=== PATIENT | male | born 1935 | race Caucasian/White ===

== ENCOUNTER 2017-03-12 17:48 | Inpatient (IN) | payer OTHER, MEDICARE ==
--- NOTE | 2017-03-12 19:40 | PDOC H&P ---
History of Present Illness Admission Date/PCP: 03/12/17 17:48 History of Present Illness: This is a 82-year-old white male with a past medical history significant for CKD stage IV, COPD, hypertension, dyslipidemia A. fib and CHF with last known EF of 24% who presented to an outside hospital with one-week history of shortness of breath. The patient states that his symptoms began about a week ago and he noticed increased fluid in his lower extremities and increased abdominal girth. His shortness of breath became progressively worse to the extent that he could not handle it anymore and he presented to [facility]. patient also describes inability to lay flat as well as development of chest discomfort in the last 24 hours. He describes a left-sided chest pain that is sharp and nonradiating. He rates it at a 5 out of 10. He received nitroglycerin at the outside hospital which improved his discomfort. He reports feeling very tired and having had minimal sleep over the last day or 2. At the outside hospital the patient received nitroglycerin for his chest discomfort. He received 80 mg of Lasix IV and nitro drip to reduce an elevated blood pressure. He received a chest x-ray which showed no focal consolidations , pneumothorax or pleural effusion. AICD was noted cardiac silhouette was deemed to be prominent. There was also noted to be an indistinct pulmonary vasculature and reticular markings in the lung bases which are associated with fluid overload. Findings were consistent with congestive heart failure. BNP done was 18,000 and creatinine was 4.3. The patient reports that his baseline creatinine is usually between 3.5 and 4. INR was noted to be elevated at 3.69. EKG showed a paced rhythm at 60 bpm. The patient was transferred here for further consideration for dialysis. The patient has been told in the past that he was approaching the need for dialysis by his physicians in [facility]. The patient usually gets his care from [facility] and is in the process of transferring down here to be closer to his daughter. He has a nephrology follow -up scheduled at the [facility] for the beginning of March. He reports increased difficulty in initiating his urine stream but denies any decreased urinary output. In fact the patient usually takes Lasix 80 mg in the morning and an extra dose if he feels that he is gaining weight. He reports that he does not add sodium to his food and that he drinks about 1500 cc of fluid each day. Currently at the bedside the patient is wearing oxygen he has no complaints of continued chest discomfort at this time. Current outpatient medications: furosemide 40 mg twice a day Hydralazine 50 mg every 8 hours Carvedilol 25 mg twice a day Warfarin 2 mg 2 tabs daily and 1 tab on Saturday Digoxin 125 mcg 1 tab Saturday no lab sodium bicarb 650 mg 1 tab 3 times daily before meals Pravastatin 40 mg nightly Amiodarone 200 mg 2 tabs daily LANTANOPROST 1 drop each eye daily Flomax 0.4 mg nightly isosorbide mononitrate 20 mg 3 times daily Past Medical History Cardiac Medical History: Reports: Atrial Fibrillation, Congestive Heart Failure , Coronary Artery Disease, Myocardial Infarction - [place] at the age of 47. It did not result in any stents., Hyperlipidema, Hypertension, Peripheral Vascular Disease - aortic aneurysm status post repair, Heart Murmur Pulmonary Medical History: Reports: Chronic Obstructive Pulmonary Disease (COPD) , Sleep Apnea - The patient brought his CPAP with him. Pulmonary History Note: The patient reports RLS. EENT Medical History: Reports: Ears - The patient wears bilateral hearing aids Endocrine Medical History: Reports: Hypothyroidism Renal/ Medical History: Reports: End Stage Renal Disease Past Surgical History Past Surgical History: Reports: Appendectomy, Internal Defibrillator - 2014., Tonsillectomy, Vascular Surgery - AAA repair Social History Information Source: Patient Occupation: Retired Lives with: Alone Smoking Status: Former Smoker - The patient started at 15 and quit at 30 Number of Years Smokin Last Time Smoked: 1968 Frequency of Alcohol Use: None Hx Recreational Drug Use: No Drugs: None Hx Prescription Drug Abuse: No Family History Family History: CAD, DM Parental Family History Reviewed: Yes Children Family History Reviewed: Yes Sibling(s) Family History Reviewed.: Yes Medication/Allergy Home Medications: Amiodarone HCl [Cordarone 200 mg Tablet] 2 tab PO DAILY 03/12/17 Carvedilol [Coreg 25 mg Tablet] 1 tab PO Q12 03/12/17 Digoxin [Lanoxin] 125 mcg PO MOWEFR@1000 03/12/17 Furosemide [Lasix] 40 mg PO Q12 03/12/17 Hydralazine HCl [Apresoline 50 mg Tablet] 50 mg PO Q8 03/12/17 Isosorbide Mononitrate [Ismo 20 Mg Tablet] 20 mg PO Q8 03/12/17 Latanoprost [Xalatan 0.005% Oph Soln 2.5 ml] 1 drop OU DAILY 03/12/17 Pravastatin Sodium [Pravachol] 40 mg PO QHS 03/12/17 Sodium Bicarbonate [Sodium Bicarbonate 650 mg Tablet] 650 mg PO AC 03/12/17 Tamsulosin HCl [Flomax 0.4 mg Cap.sr] 0.4 mg PO QHS 03/12/17 Warfarin Sodium [Coumadin 2 mg Tablet] 2 mg PO MO@1000 03/12/17 Warfarin Sodium [Coumadin 2 mg Tablet] 4 mg PO DAILY 03/12/17 Allergies/Adverse Reactions: No Known Allergies Allergy (Unverified 03/12/17 19:29) Review of Systems Review of Systems: Review of systems is pertinent as thatAlready listed in the HPI. In addition to this the patient reports blood-streaked stools when he wipes. Occasional chills. Recent diagnosis of pneumonia status post a 7 day course of antibiotics. Cough that has been prolonged after the pneumonia. Constipation. He denies blood in the urine, throwing up blood, coughing up blood. He denies fevers, nausea, vomiting, sore throat, joint aches and pains. The patient is hard of hearing and wears bilateral hearing aids. He reports difficulty ambulating because of his restless leg syndrome. He would like to consider moving on towards assisted living. Physical Exam Vital Signs: Vital signs: Temperature is 97.5. Blood pressure 162/69. Heart rate 59. Respiratory rate 20. O2 sat 99% on 3 L by nasal cannula. GENERAL: This is a well-developed well-nourished appearing white male resting in bed currently in no acute distress. He is quite a pleasant gentleman. HEENT: Normocephalic, atraumatic. Sclerae are anicteric. Conjunctivae is pink. Trachea is midline. HEART: Regular rate and rhythm. 2/6 systolic ejection murmur. No, rubs or gallops. LUNGS: Clear to auscultation bilaterally with the exception of crackles heard at the bases bilaterally with equal rise and fall of the chest. ABDOMEN: Soft, nontender, nondistended with normoactive bowel sounds EXTREMETIES: No clubbing, cyanosis. 2+ pitting edema. 1+ peripheral pulses bilaterally. Strength is 5 out of 5 in both upper extremities. 4 out of 5 in the right lower extremity and 5 out of 5 in the left lower extremity. NEURO: Awake, alert and oriented 3. Cranial nerves II through XII are specifically intact with the exception of reduced function in hearing. Results Laboratory Results: Outside labs reveal the following: Sodium 132 creatinine 4.31 potassium 4.6 chloride 109 bicarb of 23 BUN is 76 blood sugars 85 GFR 12.1 troponin is negative white blood cell count is 8.1 H&H is 8.3 and 25 with a platelet count of 208 EKG Comments: Latest EKG shows a paced rhythm at 60 Assessment & Plan - Diagnosis (1) Acute respiratory failure with hypoxemia Plan: Secondary to underlying heart failure. And COPD. Continue oxygen. Wean as needed. As needed albuterol Atrovent nebulizers. (2) Acute on chronic systolic heart failure Plan: The patient is acutely in heart failure. continue with Lasix 60 mg IV twice daily. Monitor renal function. The patient has had an acute decompensation. It is unclear if the heart failure came first or if his renal failure came first. He was followed by cardiology at the outside hospital. We will consult them here. Continue digoxin and carvedilol. The patient was receiving 12.5 mg of carvedilol at the outside hospital continue statin as well as isosorbide. (3) Acute kidney injury superimposed on chronic kidney disease Plan: Patient has been receiving diuresis. We will continue with this and monitor kidney function. We will also consult nephrology. Obtain a CBC and Chem-7 in the morning. (4) Atrial fibrillation Plan: Hold warfarin for this evening last INR was elevated at 3.6. Recheck PT and INR in the morning. (5) Hypertension Qualifiers: Hypertension type: essential hypertension Qualified Code(s): I10 - Essential (primary) hypertension Plan: Continue carvedilol, Isosorbide mononitrate (6) COPD (chronic obstructive pulmonary disease) Plan: The patient is not in acute exacerbation. I do not see that he is on any outpatient inhalers. He is stable at the moment. (7) RLS (restless legs syndrome) Plan: The patient is not currently on any medications to control RLS. We will monitor. - Time Time Spent: Greater than 70 Minutes - Inpatient Certification I certify that my determination is in accordance with my understanding of Medicare's requirements for reasonable and necessary INPATIENT services [42 CFR 412.3e].: Yes Medical Necessity: Need Close Monitoring Due to Risk of Patient Decompensation
[2017-03-12] MEDS ORDERED: IPRATROPIUM/ALBUTEROL 0.5-2.5 MG/3 ML AMPUL NEB PRN (19:44)
--- NOTE | 2017-03-12 21:54 | PDOC CONSULTATION ---
Consultation Consult Date: 03/12/17 Attending physician:: RUPERTO MARQUEZ Consult reason:: I was asked by Dr. Wong to see the patient because of worsening kidney function and possible need for hemodialysis. History of Present Illness Admission Date/PCP: 03/12/17 17:48 History of Present Illness: This is a 82-year-old white male with a past medical history significant for CKD stage IV, COPD, hypertension, dyslipidemia A. fib and CHF with last known EF of 24% who presented to an outside hospital with one-week history of shortness of breath. The patient states that his symptoms began about a week ago and he noticed increased fluid in his lower extremities and increased abdominal girth. His shortness of breath became progressively worse to the extent that he could not handle it anymore and he presented to [facility]. patient also describes inability to lay flat as well as development of chest discomfort in the last 24 hours. He describes a left-sided chest pain that is sharp and nonradiating. He rates it at a 5 out of 10. He received nitroglycerin at the outside hospital which improved his discomfort. He reports feeling very tired and having had minimal sleep over the last day or 2. At the outside hospital the patient received nitroglycerin for his chest discomfort. He received 80 mg of Lasix IV and nitro drip to reduce an elevated blood pressure. He received a chest x-ray which showed no focal consolidations , pneumothorax or pleural effusion. AICD was noted cardiac silhouette was deemed to be prominent. There was also noted to be an indistinct pulmonary vasculature and reticular markings in the lung bases which are associated with fluid overload. Findings were consistent with congestive heart failure. BNP done was 18,000 and creatinine was 4.3. The patient reports that his baseline creatinine is usually between 3.5 and 4. INR was noted to be elevated at 3.69. EKG showed a paced rhythm at 60 bpm. The patient was transferred here for further consideration for dialysis. The patient has been told in the past that he was approaching the need for dialysis by his physicians in [facility]. The patient usually gets his care from [facility] and is in the process of transferring down here to be closer to his daughter. He has a nephrology follow -up scheduled at the [facility] for the beginning of March. He reports increased difficulty in initiating his urine stream but denies any decreased urinary output. In fact the patient usually takes Lasix 80 mg in the morning and an extra dose if he feels that he is gaining weight. He reports that he does not add sodium to his food and that he drinks about 1500 cc of fluid each day. Currently at the bedside the patient is wearing oxygen he has no complaints of continued chest discomfort at this time. Patient said that his breathing is better. His lower extremity swelling has also improved since hospitalized last week. The only complaint he has is his feeling tired because he is unable to sleep because of his restless legs. He denies any chest pains. Currently he denies any problem with urination. Denies any known hematuria. Asked him how much urine he can make them 24 hours he said about two thirds of the urinal. Further review of his records revealed that his baseline creatinine is anywhere between 3.5 until 4 prior to hospitalization last week. On admission at [facility] on March 06 he has a BUN of 76 creatinine 4.31 with estimated GFR of 12.1. Upon initiation of diuresis patient's kidney function very slowly deteriorated but remained at that level of stage V. Today his most recent kidney function shows a BUN of 83 and a creatinine of 5.7 with estimated GFR of 8.63. His potassium has been within normal limits. He has mild hyperphosphatemia in the range of 4.8-5.2. He also has significant anemia with most recent hemoglobin of 8.3 today. His iron panel showed a transferrin saturation of 19, ferritin of 106 and iron of 46. Patient tells me that he has had multiple hospitalizations for congestive heart failure at [place] prior to his move here in [place] last December 25. Patient is very much aware and agreeable of the possibility of initiation of hemodialysis that is why he agreed for this transfer. Current outpatient medications: furosemide 40 mg twice a day Hydralazine 50 mg every 8 hours Carvedilol 25 mg twice a day Warfarin 2 mg 2 tabs daily and 1 tab on Saturday Digoxin 125 mcg 1 tab Saturday no lab sodium bicarb 650 mg 1 tab 3 times daily before meals Pravastatin 40 mg nightly Amiodarone 200 mg 2 tabs daily LANTANOPROST 1 drop each eye daily Flomax 0.4 mg nightly isosorbide mononitrate 20 mg 3 times daily Past Medical History Cardiac Medical History: Reports: Abdominal Aortic Aneurysm - Status post repair in 2014, Atrial Fibrillation, CHF-Systolic - Most recent ejection fraction of 24% in August 2016, Coronary Artery Disease, Heart Murmur, Hyperlipidemia, Hypertension-primary, Myocardial Infarction - [place] at the age of 47. It did not result in any stents., Peripheral Vascular Disease - aortic aneurysm status post repair, Other - Nonischemic cardiomyopathy with biventricular pacemaker and defibrillator placement in September 2016 Pulmonary Medical History: Reports: Chronic Obstructive Pulmonary Disease (COPD) , Sleep Apnea - The patient brought his CPAP with him. EENT Medical History: Reports: Cataracts, Ears - The patient wears bilateral hearing aids, Other - Glaucoma Endocrine Medical History: Reports: Hypothyroidism Renal/ Medical History: Reports: End Stage Renal Disease, Hyperphosphatemia Hematology Medical History: Reports Anemia of Chronic Kidney Disease Past Surgical History Past Surgical History: Reports: Appendectomy, Internal Defibrillator - 2014., Tonsillectomy, Vascular Surgery - AAA repair in 2014 Social History Information Source: Patient Lives with: Alone Smoking Status: Former Smoker - The patient started at 15 and quit at 30 Number of Years Smokin Last Time Smoked: 1968 Frequency of Alcohol Use: None Hx Recreational Drug Use: No Drugs: None Hx Prescription Drug Abuse: No Family History Family History: CAD - Mother, DM - Uncle Parental Family History Reviewed: Yes Children Family History Reviewed: Yes Sibling(s) Family History Reviewed.: Yes Medication/Allergy Home Medications: Amiodarone HCl [Cordarone 200 mg Tablet] 2 tab PO DAILY 03/12/17 Carvedilol [Coreg 25 mg Tablet] 1 tab PO Q12 03/12/17 Digoxin [Lanoxin] 125 mcg PO MOWEFR@1000 03/12/17 Furosemide [Lasix] 40 mg PO Q12 03/12/17 Hydralazine HCl [Apresoline 50 mg Tablet] 50 mg PO Q8 03/12/17 Isosorbide Mononitrate [Ismo 20 Mg Tablet] 20 mg PO Q8 03/12/17 Latanoprost [Xalatan 0.005% Oph Soln 2.5 ml] 1 drop OU DAILY 03/12/17 Pravastatin Sodium [Pravachol] 40 mg PO QHS 03/12/17 Sodium Bicarbonate [Sodium Bicarbonate 650 mg Tablet] 650 mg PO AC 03/12/17 Tamsulosin HCl [Flomax 0.4 mg Cap.sr] 0.4 mg PO QHS 03/12/17 Warfarin Sodium [Coumadin 2 mg Tablet] 2 mg PO MO@1000 03/12/17 Warfarin Sodium [Coumadin 2 mg Tablet] 4 mg PO DAILY 03/12/17 Allergies/Adverse Reactions: No Known Allergies Allergy (Unverified 03/12/17 19:29) Review of Systems All systems: reviewed and no additional remarkable complaints except as stated Review of Systems: Constitutional: ABSENT: chills, fever(s), headache(s), weight gain, weight loss , admits fatigue Eyes: ABSENT: visual disturbances Ears: ABSENT: hearing changes Cardiovascular: ABSENT: chest pain, orthropnea, palpitations; shortness of breath and edema Respiratory: ABSENT: cough, dyspnea, hemoptysis Gastrointestinal: ABSENT: abdominal pain, constipation, diarrhea, hematemesis, hematochezia, nausea, vomiting Genitourinary: ABSENT: dysuria, hematuria Musculoskeletal: ABSENT: joint swelling Integumentary: ABSENT: rash, wounds Neurological: ABSENT: abnormal gait, abnormal speech, confusion, dizziness, focal weakness, numbness, syncope; admits restless leg Psychiatric: ABSENT: anxiety, depression Endocrine: ABSENT: cold intolerance, heat intolerance, polydipsia, polyuria Hematologic/Lymphatic: ABSENT: easy bleeding, easy bruising, lymphadenopathy Physical Exam Vital Signs: Temp Pulse Resp BP Pulse Ox 97.6 F 59 L 24 H 162/67 H 100 03/12/17 19:37 03/12/17 19:37 03/12/17 19:37 03/12/17 19:37 03/12/17 19:37 Intake & Output 03/11/17 03/12/17 03/13/17 06:59 06:59 06:59 Weight 93.3 kg Exam: General appearance: no acute distress, cooperative, well-developed, well- nourished Head exam: PRESENT: atraumatic, normocephalic Eye exam: PRESENT: Conjunctiva pale, EOMI, PERRLA. ABSENT: conjunctival injection, scleral icterus Mouth exam: PRESENT: moist, neck supple, tongue midline Neck exam: PRESENT: full ROM. ABSENT: carotid bruit, JVD, lymphadenopathy, thyromegaly Respiratory exam: PRESENT: clear to auscultation bilaterally. ABSENT: rales, rhonchi, stridor, wheezes Cardiovascular exam: PRESENT: RRR, +S1, +S2. Grade 2/6 systolic murmur Pulses: PRESENT: normal radial pulses, normal dorsalis pedis pulses GI/Abdominal exam: PRESENT: normal bowel sounds, soft. ABSENT: guarding, mass, tenderness Rectal exam: deferred Extremities exam: PRESENT: full ROM. Bilateral trace pitting edema ABSENT: calf tenderness Musculoskeletal: PRESENT: full ROM. ABSENT: deformity Neurological exam: PRESENT: alert, Awake, Oriented to person, Oriented to place , Oriented to time, reflexes normal, CN II-XII grossly intact. ABSENT: motor sensory deficit Psychiatric exam: PRESENT: appropriate affect, normal mood. ABSENT: homicidal ideation, suicidal ideation Skin exam: PRESENT: intact, dry, warm. Positive pallor ABSENT: rash Results Laboratory [facility]. Assessment & Plan - Diagnosis (1) End stage renal disease on dialysis Is this a current diagnosis for this admission?: YesPlan: This is due to chronic cardiorenal syndrome. Patient's records, history and labs consistent with progressive deterioration of kidney function now with end- stage renal disease requiring hemodialysis treatment. At the at this stage the patient would benefit from initiation of chronic hemodialysis treatment to maintain volume and solute control. This will help hopefully prevent frequent exacerbations of congestive heart failure if we can control his volume through hemodialysis consistently. I had an extensive discussion with the patient today regarding hemodialysis treatment versus peritoneal dialysis treatment. Due to his living condition and his age I think it is appropriate for him to do in-center hemodialysis treatment. Explained to patient how the procedure is done and the need for vascular access in the form of a catheter initially and later on AV fistula. Discussed the benefits as is stated above. Also discussed the risk for hemodialysis treatment including bleeding, infection, hemodynamic instability including . After several questions patient agreed to proceed. We will plan to initiate hemodialysis tomorrow. We will consult vascular surgery care of Dr. Gardiner to place either a trialysis of [facility] tomorrow for initiation of hemodialysis. We will do labs required for him to be arranged for an outpatient chronic dialysis treatment. We will also consult technical planner to arrange outpatient dialysis. For this technical planner a discussion with the daughter and the patient should be done as to where the patient is going to be after discharge. If the patient stays here in [place] then we can arrange outpatient dialysis at [facility] and I can follow- up the patient. However if the patient stays at the [facility], patient may need to be arranged to another outpatient dialysis unit in that area and we would need to find a air brakes inspector to follow him up over there. We will have the technical planner follow this up. (2) Cardiorenal syndrome with renal failure Is this a current diagnosis for this admission?: Yes (3) Anemia in chronic kidney disease (CKD) Is this a current diagnosis for this admission?: YesPlan: We will give Epogen and IV Venofer during dialysis treatment. (4) Iron deficiency anemia Is this a current diagnosis for this admission?: Yes (5) Hyperphosphatemia Is this a current diagnosis for this admission?: YesPlan: Low phosphorus diet, phosphorus level and evaluate for need for phosphorus binders. Check PTH level. (6) Non-ischemic cardiomyopathy Is this a current diagnosis for this admission?: Yes (7) Acute on chronic systolic heart failure Is this a current diagnosis for this admission?: Yes (8) RLS (restless legs syndrome) Is this a current diagnosis for this admission?: Yes - Notes Notes: Thank you very much for this consultation. Plan discussed with the nurse taking care of the patient tonight. I will follow the patient with you. - Time Time Spent: Greater than 70 Minutes
[2017-03-12] MEDS ORDERED: TUBERCULIN,PURIF.PROT.DERIV. 5 TU/0.1 ML TEST 1 ML VIAL ID ONE (23:00)
[2017-03-12] MEDS: LATANOPROST 0.005% OPH SOLN 2.5 ML OU SCH (23:43)
--- NOTE | 2017-03-12 23:51 | EKG REPORT ---
SEVERITY:- ABNORMAL ECG - ATRIAL-VENTRICULAR DUAL-PACED RHYTHM : Confirmed by: Deangelo Dupree 12-Mar-2017 23:51:03
[2017-03-12] MEDS: FUROSEMIDE INJ/PF 20 MG/2 ML SDV IV SCH (23:53)
[2017-03-12] MEDS: ISOSORBIDE MONONITRATE 20 MG TABLET PO SCH (23:53)
[2017-03-12] MEDS: CARVEDILOL 12.5 MG TABLET PO SCH (23:54)
[2017-03-12] MEDS: TAMSULOSIN HCL 0.4 MG CAP.SR.24H PO SCH (23:54)
[2017-03-12] MEDS: HYDRALAZINE HCL 50 MG TABLET PO SCH (23:54)
[2017-03-13 04:39] LABS: APPEARANCE,URINE CLEAR; BILIRUBIN,URINE NEGATIVE (NEGATIVE); GLUCOSE, URINE NEGATIVE (NEGATIVE); KETONES,URINE NEGATIVE (NEGATIVE); LEUKOCYTE ESTERASE,URINE NEGATIVE (NEGATIVE); NITRITE,URINE NEGATIVE (NEGATIVE); PROTEIN,URINE NEGATIVE (NEGATIVE); URINE SPECIFIC GRAVITY 1.004; UROBILINOGEN,URINE NEGATIVE mg/dL (<2.0)
[2017-03-13 04:57] LABS: URINE CREATININE 19.7 mg/dL (22-328)
[2017-03-13] MEDS ORDERED: EPOETIN ALFA INJ 20000 UNIT/1 ML VIAL (RENAL) IV PRN (05:00)
[2017-03-13] MEDS ORDERED: IRON SUCROSE COMPLEX INJ/PF 100 MG/5 ML SDV IV PRN (05:00)
[2017-03-13] MEDS ORDERED: NORMAL SALINE 1000 ML 1,000 ML IV PRN (05:00)
[2017-03-13 05:44] LABS: HEMATOCRIT 26.6 % (37.9-51.0); HEMOGLOBIN 8.8 g/dL (13.5-17.0); HGB HCT DIFFERENCE -0.2; MEAN CORPUSCULAR HEMOGLOBIN 30.7 pg (27.0-33.4); MEAN CORPUSCULAR HGB CONC 33.2 g/dL (32.0-36.0); MEAN CORPUSCULAR VOLUME 93 fl (80-97); RED BLOOD COUNT 2.88 10^6/uL (4.35-5.55); RED CELL DISTRIBUTION WIDTH 17.2 % (11.5-14.0); WHITE BLOOD COUNT 8.5 10^3/uL (4.0-10.5)
[2017-03-13 05:49] LABS: PROTHROMBIN TIME 24.1 SEC (11.4-15.4)
[2017-03-13 05:50] LABS: PARTIAL THROMBOPLASTIN TIME 50.9 SEC (23.5-35.8)
[2017-03-13 06:16] LABS: ALANINE AMINOTRANSFERASE 40 U/L (21-72); ALBUMIN 3.6 g/dL (3.5-5.0); ALKALINE PHOSPHATASE 93 U/L (38-126); ANION GAP 11 (5-19); ASPARTATE AMINO TRANSFERASE 29 U/L (17-59); BILIRUBIN,DIRECT 0.9 mg/dL (0.0-0.4); BILIRUBIN,TOTAL 1.1 mg/dL (0.2-1.3); BLOOD UREA NITROGEN 94 mg/dL (7-20); CARBON DIOXIDE 30 mmol/L (22-30); CHLORIDE 98 mmol/L (98-107); CHOLESTEROL 145.85 mg/dL (0-200); CREATININE RESULT 5.63 mg/dL (0.52-1.25); Direct HDL 36 mg/dL (>40); GLUCOSE 91 mg/dL (75-110); MAGNESIUM 2.7 mg/dL (1.6-2.3); PHOSPHORUS 6.3 mg/dL (2.5-4.5); POTASSIUM 3.9 mmol/L (3.6-5.0); SODIUM 139.4 mmol/L (137-145); TOTAL PROTEIN 6.7 g/dL (6.3-8.2); TRIGLYCERIDES 60 mg/dL (<150)
[2017-03-13 06:27] LABS: DIRECT LDL 93 mg/dL (<100)
[2017-03-13] MEDS: ISOSORBIDE MONONITRATE 20 MG TABLET PO SCH ×3 (06:34→21:15)
[2017-03-13] MEDS: HYDRALAZINE HCL 50 MG TABLET PO SCH ×3 (06:34→21:15)
--- NOTE | 2017-03-13 09:09 | RADIOLOGY REPORT (SQ) ---
EXAM DESCRIPTION: CHEST PA/LAT COMPLETED DATE/TIME: 03/13/2017 8:26 am REASON FOR STUDY: Congestive heart failure COMPARISON: None. EXAM PARAMETERS: NUMBER OF VIEWS: two views TECHNIQUE: Digital Frontal and Lateral radiographic views of the chest acquired. RADIATION DOSE: NA LIMITATIONS: none FINDINGS: LUNGS AND PLEURA: No opacities, masses or pneumothorax. No pleural effusion. MEDIASTINUM AND HILAR STRUCTURES: No masses or contour abnormalities. HEART AND VASCULAR STRUCTURES: Cardiac silhouette is enlarged. BONES: No acute findings. HARDWARE: AICD device is identified in position. OTHER: No other significant finding. IMPRESSION: Cardiomegaly. No acute consolidations are identified. TECHNICAL DOCUMENTATION: JOB ID: [id number] [email or web address]- All Rights Reserved
[2017-03-13] MEDS: SODIUM BICARBONATE 650 MG TABLET PO SCH ×3 (09:42→18:18)
[2017-03-13] MEDS: AMIODARONE HCL 200 MG TABLET PO SCH (09:42)
[2017-03-13] MEDS: CARVEDILOL 12.5 MG TABLET PO SCH ×2 (09:42→21:15)
[2017-03-13] MEDS: DIGOXIN 0.125 MG TABLET PO SCH (09:42)
[2017-03-13] MEDS: FUROSEMIDE INJ/PF 20 MG/2 ML SDV IV SCH ×2 (10:02→21:14)
--- NOTE | 2017-03-13 11:03 | PDOC CONSULTATION ---
Consultation Consult Date: 03/13/17 Attending physician:: KAREN COOPER Consult reason:: Congestive heart failure, cardiomyopathy History of Present Illness Admission Date/PCP: 03/12/17 17:48 Patient complains of: Shortness of breath History of Present Illness: This is a 82-year-old white male with a past medical history significant for CKD stage IV, COPD, hypertension, dyslipidemia A. fib and CHF with last known EF of 24%, which patient claims was obtained just 1 week ago at the [facility], who presented to an outside hospital with one-week history of shortness of breath. The patient states that his symptoms began about a week ago and he noticed increased fluid in his lower extremities and increased abdominal girth. His shortness of breath became progressively worse to the extent that he could not handle it anymore and he presented to [facility]. patient also describes inability to lay flat as well as development of chest discomfort in the last 24 hours. He describes a left-sided chest pain that is sharp and nonradiating. He rates it at a 5 out of 10. He received nitroglycerin at the outside hospital which improved his discomfort. He reports feeling very tired and having had minimal sleep over the last day or 2. At the outside hospital the patient received nitroglycerin for his chest discomfort. He received 80 mg of Lasix IV and nitro drip to reduce an elevated blood pressure. He received a chest x-ray which showed no focal consolidations , pneumothorax or pleural effusion. AICD was noted. Cardiac silhouette was deemed to be prominent. There was also noted to be an indistinct pulmonary vasculature and reticular markings in the lung bases which are associated with fluid overload. Findings were consistent with congestive heart failure. BNP done was 18,000 and creatinine was 4.3. The patient reports that his baseline creatinine is usually between 3.5 and 4. INR was noted to be elevated at 3.69. EKG showed a paced rhythm at 60 bpm. The patient was transferred here for further consideration for dialysis. The patient has been told in the past that he was approaching the need for dialysis by his physicians in [facility]. The patient usually gets his care from [facility] and is in the process of transferring down here to be closer to his daughter. He has a nephrology follow -up scheduled at the [facility] for the beginning of March. He reports increased difficulty in initiating his urine stream but denies any decreased urinary output. In fact the patient usually takes Lasix 80 mg in the morning and an extra dose if he feels that he is gaining weight. He reports that he does not add sodium to his food and that he drinks about 1500 cc of fluid each day. Patient describes history of abdominal aortic aneurysm surgery. He is not aware if he ever had heart catheterization but the patient denied any definite prior history of myocardial infarction. Patient is denying any chest pain at this time. He is laying comfortably in bed. Patient surrogate decision-maker is patient's daughter. This history was reviewed, supplemented and confirmed. Current outpatient medications were reviewed. furosemide 40 mg twice a day Hydralazine 50 mg every 8 hours Carvedilol 25 mg twice a day Warfarin 2 mg 2 tabs daily and 1 tab on Saturday Digoxin 125 mcg 1 tab Saturday no lab sodium bicarb 650 mg 1 tab 3 times daily before meals Pravastatin 40 mg nightly Amiodarone 200 mg 2 tabs daily LANTANOPROST 1 drop each eye daily Flomax 0.4 mg nightly isosorbide mononitrate 20 mg 3 times daily Past Medical History Cardiac Medical History: Reports: Atrial Fibrillation, Congestive Heart Failure , Coronary Artery Disease, Myocardial Infarction - Questionable history OK at the age of 47. It did not result in any stents., Hyperlipidema, Hypertension, Peripheral Vascular Disease - aortic aneurysm status post repair, Heart Murmur, Other - Nonischemic cardiomyopathy with biventricular pacemaker and defibrillator placement in September 2016 Pulmonary Medical History: Reports: Chronic Obstructive Pulmonary Disease (COPD) , Sleep Apnea - The patient brought his CPAP with him. EENT Medical History: Reports: Cataracts, Ears - The patient wears bilateral hearing aids, Other - Glaucoma Endocrine Medical History: Reports: Hypothyroidism Renal/ Medical History: Reports: End Stage Renal Disease Hematology: Reports: Other - Glaucoma Past Surgical History Past Surgical History: Reports: Appendectomy, Internal Defibrillator - 2014., Tonsillectomy, Vascular Surgery - AAA repair in 2014 Social History Information Source: Patient Lives with: Alone Smoking Status: Former Smoker - The patient started at 15 and quit at 30 Number of Years Smokin Last Time Smoked: 1968 Frequency of Alcohol Use: None Hx Recreational Drug Use: No Drugs: None Hx Prescription Drug Abuse: No - Advance Directive Resuscitation Status: Full Code Surrogate healthcare decision maker:: Patient's daughter Family History Family History: CAD, DM Parental Family History Reviewed: Yes Children Family History Reviewed: Yes Sibling(s) Family History Reviewed.: Yes Medication/Allergy Home Medications: Amiodarone HCl [Cordarone 200 mg Tablet] 2 tab PO DAILY 03/12/17 Carvedilol [Coreg 25 mg Tablet] 1 tab PO Q12 03/12/17 Digoxin [Lanoxin] 125 mcg PO MOWEFR@1000 03/12/17 Furosemide [Lasix] 40 mg PO Q12 03/12/17 Hydralazine HCl [Apresoline 50 mg Tablet] 50 mg PO Q8 03/12/17 Isosorbide Mononitrate [Ismo 20 Mg Tablet] 20 mg PO Q8 03/12/17 Latanoprost [Xalatan 0.005% Oph Soln 2.5 ml] 1 drop OU DAILY 03/12/17 Pravastatin Sodium [Pravachol] 40 mg PO QHS 03/12/17 Sodium Bicarbonate [Sodium Bicarbonate 650 mg Tablet] 650 mg PO AC 03/12/17 Tamsulosin HCl [Flomax 0.4 mg Cap.sr] 0.4 mg PO QHS 03/12/17 Warfarin Sodium [Coumadin 2 mg Tablet] 2 mg PO MO@1000 03/12/17 Warfarin Sodium [Coumadin 2 mg Tablet] 4 mg PO DAILY 03/12/17 Allergies/Adverse Reactions: No Known Allergies Allergy (Unverified 03/12/17 19:29) Review of Systems Review of Systems: Please see history of present illness and past medical history as wall. Constitutional: No fever or chills reported. Head : No recent chronic headaches, recent head injury. Eyes: No recent eye pain, diplopia, redness, discharge, acute visual changes. Ears: No recent chronic ear pain, acute hearing loss, ear discharge. Oral cavity: No recent ulcerations, bleeding, oral cavity discomfort. Neck: No recent acute neck pain reported. Hematologic: No recent easy bruising or bleeding or hematologic malignancy reported. Lymphatic: No recent lymphatic malignancy, chronic lymphadenopathy reported yet Cardiovascular system review: See history of present illness. Increasing shortness of breath and pedal edema. No recent defibrillator shocks Respiratory system review: No recent chronic cough, hemoptysis, blood clots in the lungs reported. Shortness of breath on exertion Gastrointestinal system review: Negative for any recent acute or chronic abdominal pain, hematemesis, melena, recent change in bowel habits. Genitourinary system review: No recent acute or chronic hematuria, flank pain, UTI etc. reported. Skin system review: Negative for any recent abnormal bruising, no rash, no pruritus reported. Neurologic: No prior history of strokes, mini strokes, seizure disorder. Psychologic: No history of major psychosis or major depression reported. Musculoskeletal: Minor aches and pains reported. No acute joint swelling reported. Endocrine: No recent polyuria, polydipsia, recent heat or cold intolerance. Physical Exam Vital Signs: Temp Pulse Resp BP Pulse Ox 97.9 F 64 16 143/61 H 100 03/13/17 07:58 03/13/17 10:37 03/13/17 10:37 03/13/17 07:58 03/13/17 07:58 Intake & Output 03/12/17 03/13/17 03/14/17 06:59 06:59 06:59 Intake Total 233 Output Total 2400 Balance -2167 Weight 89 kg Exam: GENERAL: well-nourished and in no acute distress. Alert and oriented x3 HEAD: Atraumatic, normocephalic. EYES: Pupils equal round and reactive to light, extraocular movements intact, sclera anicteric, conjunctiva are normal. ENT: TMs normal, nares patent, oropharynx clear without exudates. Moist mucous membranes. No oral ulcerations or bleeding gums noted NECK: supple without lymphadenopathy. Trachea is central. No cervical or axillary lymphadenopathy noted. Carotids are 2+, JVD WNL LUNGS: Respiration seems nonlabored, no significant accessory muscle action noted. Breath sounds clear to auscultation bilaterally and equal noted. No wheezes rales or rhonchi noted. No significant dullness noted on percussion. CHEST: Palpation of the chest wall shows no significant chest wall tenderness. No other significant abnormalities noted. Defibrillator noted on the left side. HEART: [place] [employer], No PSH, 1/6 LIOR aortic area, 1/6 rea systolic murmur mitral area, no rubs, no gallops. ABDOMEN: Soft, no significant tenderness appreciated, normoactive bowel sounds. No guarding, no rebound. No rigidity noted . No masses appreciated. EXTREMITIES: Pedal pulses are 1-2+, no calf tenderness noted. No clubbing or cyanosis. 1-2+ pedal edema noted NEUROLOGICAL: Focused neurological exam showed no significant neurologic deficit. Normal speech, no focal weakness appreciated. PSYCH: Normal mood, normal affect. Judgment and insight within normal limits. SKIN: No significant ecchymosis, rash, ulcerations or signs of pruritus noted. MUSCULOSKELETAL EXAM: No significant joint swelling noted. Results Laboratory Results: 03/13/17 05:30 03/13/17 05:30 03/13/17 03/13/17 03/13/17 04:07 05:30 05:30 WBC 8.5 RBC 2.88 L Hgb 8.8 L Hct 26.6 L MCV 93 MCH 30.7 MCHC 33.2 RDW 17.2 H Plt Count 199 Sodium 139.4 Potassium 3.9 Chloride 98 Carbon Dioxide 30 Anion Gap 11 BUN 94 H Creatinine 5.63 H Est GFR ( Amer) 12 L Est GFR (Non-Af Amer) 10 L Glucose 91 Calcium 9.0 Phosphorus 6.3 H Magnesium 2.7 H Total Bilirubin 1.1 AST 29 ALT 40 Alkaline Phosphatase 93 Total Protein 6.7 Albumin 3.6 Triglycerides 60 Cholesterol 145.85 LDL Cholesterol Direct 93 VLDL Cholesterol 12.0 HDL Cholesterol 36 L TSH Urine Color STRAW Urine Appearance CLEAR Urine pH 7.0 Ur Specific [place] 1.004 Urine Protein NEGATIVE Urine Glucose (UA) NEGATIVE Urine Ketones NEGATIVE Urine Blood NEGATIVE Urine Nitrite NEGATIVE Ur Leukocyte Esterase NEGATIVE Urine WBC (Auto) 0 Urine RBC (Auto) 0 03/13/17 05:30 WBC RBC Hgb Hct MCV MCH MCHC RDW Plt Count Sodium Potassium Chloride Carbon Dioxide Anion Gap BUN Creatinine Est GFR ( Amer) Est GFR (Non-Af Amer) Glucose Calcium Phosphorus Magnesium Total Bilirubin AST ALT Alkaline Phosphatase Total Protein Albumin Triglycerides Cholesterol LDL Cholesterol Direct VLDL Cholesterol HDL Cholesterol TSH 4.15 Urine Color Urine Appearance Urine pH Ur Specific [place] Urine Protein Urine Glucose (UA) Urine Ketones Urine Blood Urine Nitrite Ur Leukocyte Esterase Urine WBC (Auto) Urine RBC (Auto) 03/13/17 05:30 NT-Pro-B Natriuret Pep 29077 H EKG Comments: A sensed V paced rhythm noted. Patient had biventricular pacing. Impressions: Chest X-Ray 03/13/17 08:00 IMPRESSION: Cardiomegaly. No acute consolidations are identified. Assessment & Plan - Diagnosis (1) Acute on chronic systolic heart failure Is this a current diagnosis for this admission?: Yes (2) Cardiac defibrillator in situ Is this a current diagnosis for this admission?: Yes (3) Chronic kidney disease Qualifiers: Chronic kidney disease stage: stage 5, not on chronic dialysis Qualified Code(s): N18.5 - Chronic kidney disease, stage 5 Is this a current diagnosis for this admission?: Yes (4) Hypertension Qualifiers: Hypertension type: essential hypertension Qualified Code(s): I10 - Essential (primary) hypertension Is this a current diagnosis for this admission?: Yes (5) Non-ischemic cardiomyopathy Is this a current diagnosis for this admission?: Yes - Notes Notes: Acute on chronic systolic heart failure: Patient has severely depressed LVEF. Patient does have a functioning defibrillator, biventricular in situ. Will try to optimize medical management. Patient will definitely benefit from fluid removal on dialysis and initiation of dialysis therapy. Cardiac defibrillator in situ: Seems functioning normally. Patient chest x-ray showed additional LV lead in coronary sinus addition to right atrial and left right ventricular lead. Chronic kidney disease: Stage V or even worse. Nephrology is seen. Plans are to initiate dialysis. Cardiomyopathy: Believed to be non-ischemic. We will try to obtain previous records. Hypertension: Reasonably well controlled. Blood pressure goal in this patient is 135/85 or less. This was discussed with the patient. Currently blood pressure under reasonable control. Better medication for this patient are DAVID inhibitor/ARB/beta bharati etc. discussed side effects of uncontrolled hypertension and also severe hypotension. - Time Time Spent: 30 to 50 Minutes - CODE STATUS was discussed, patient remains full code. Surrogate decision-maker patient's daughter. Multiple medical problems were addressed. More than 50% of the time spent coordinating care, discussing management plans with involved caregivers. Management plans discussed with involved personnels. Medical decision making was of moderate to high complexity , patient's has multiple comorbidities. Medications reviewed and adjusted accordingly: Yes
[2017-03-13] MEDS ORDERED: LIDOCAINE 0.5% INJ-PF (5 MG/ML) 50 ML SDV ONE (12:02)
--- NOTE | 2017-03-13 13:31 | PDOC PROGRESS REPORT ---
Subjective Progress Note for:: 03/13/17 Subjective:: This is a follow-up visit for end-stage renal disease and acute on chronic systolic heart failure. The patient states he did not sleep well last night. He only slept for 4 hours. He states that he feels less short of breath today and he denies any recurrent chest discomfort. He states that he has been urinating quite a bit and feels as though his legs and feet have decreased swelling. He is due to have dialysis catheter put in today. Physical Exam Vital Signs: Temp Pulse Resp BP Pulse Ox 97.9 F 64 16 143/61 H 100 03/13/17 07:58 03/13/17 10:37 03/13/17 10:37 03/13/17 07:58 03/13/17 07:58 Intake & Output 03/12/17 03/13/17 03/14/17 06:59 06:59 06:59 Intake Total 233 Output Total 2400 Balance -2167 Weight 89 kg GENERAL: This is a well-developed well-nourished appearing white male resting in bed currently in no acute distress. He is quite a pleasant gentleman. HEART: Regular rate and rhythm. 2/6 systolic ejection murmur. No, rubs or gallops. LUNGS: Clear to auscultation bilaterally with equal rise and fall of the chest. ABDOMEN: Soft, nontender, nondistended with normoactive bowel sounds EXTREMETIES: No clubbing, cyanosis. 2+ pitting edema. NEURO: Awake, alert and oriented 3. Cranial nerves II through XII. Results Laboratory Results: 03/13/17 05:30 03/13/17 05:30 03/13/17 03/13/17 03/13/17 04:07 05:30 05:30 WBC 8.5 RBC 2.88 L Hgb 8.8 L Hct 26.6 L MCV 93 MCH 30.7 MCHC 33.2 RDW 17.2 H Plt Count 199 Sodium 139.4 Potassium 3.9 Chloride 98 Carbon Dioxide 30 Anion Gap 11 BUN 94 H Creatinine 5.63 H Est GFR ( Amer) 12 L Est GFR (Non-Af Amer) 10 L Glucose 91 Calcium 9.0 Phosphorus 6.3 H Magnesium 2.7 H Total Bilirubin 1.1 AST 29 ALT 40 Alkaline Phosphatase 93 Total Protein 6.7 Albumin 3.6 Triglycerides 60 Cholesterol 145.85 LDL Cholesterol Direct 93 VLDL Cholesterol 12.0 HDL Cholesterol 36 L TSH Urine Color STRAW Urine Appearance CLEAR Urine pH 7.0 Ur Specific [place] 1.004 Urine Protein NEGATIVE Urine Glucose (UA) NEGATIVE Urine Ketones NEGATIVE Urine Blood NEGATIVE Urine Nitrite NEGATIVE Ur Leukocyte Esterase NEGATIVE Urine WBC (Auto) 0 Urine RBC (Auto) 0 03/13/17 05:30 WBC RBC Hgb Hct MCV MCH MCHC RDW Plt Count Sodium Potassium Chloride Carbon Dioxide Anion Gap BUN Creatinine Est GFR ( Amer) Est GFR (Non-Af Amer) Glucose Calcium Phosphorus Magnesium Total Bilirubin AST ALT Alkaline Phosphatase Total Protein Albumin Triglycerides Cholesterol LDL Cholesterol Direct VLDL Cholesterol HDL Cholesterol TSH 4.15 Urine Color Urine Appearance Urine pH Ur Specific [place] Urine Protein Urine Glucose (UA) Urine Ketones Urine Blood Urine Nitrite Ur Leukocyte Esterase Urine WBC (Auto) Urine RBC (Auto) 03/13/17 05:30 NT-Pro-B Natriuret Pep [id number] H Impressions: Chest X-Ray 03/13/17 08:00 IMPRESSION: Cardiomegaly. No acute consolidations are identified. Assessment & Plan - Diagnosis (1) Acute respiratory failure with hypoxemia Plan: Secondary to underlying heart failure. And COPD. Continue oxygen. Wean as needed. As needed albuterol Atrovent nebulizers. (2) Acute on chronic systolic heart failure Is this a current diagnosis for this admission?: YesPlan: The patient is acutely in heart failure. continue with Lasix 60 mg IV twice daily. Monitor renal function. The patient has had an acute decompensation. It is unclear if the heart failure came first or if his renal failure came first. He was seen by cardiology. Continue digoxin and carvedilol. (3) Acute kidney injury superimposed on chronic kidney disease Plan: Patient has been receiving diuresis. We will continue with this and monitor kidney function. He has been seen by nephrology. The plan is for him to have dialysis catheter placed today and receive hemodialysis later this afternoon. However I have concerns about placement of a PermCath considering that his INR is slightly above 2. We will need to contact the surgeon to make sure they are aware of this. (4) Atrial fibrillation Plan: Resume warfarin after procedure. Recheck PT and INR in the morning. (5) Hypertension Qualifiers: Hypertension type: essential hypertension Qualified Code(s): I10 - Essential (primary) hypertension Is this a current diagnosis for this admission?: YesPlan: Continue carvedilol, Isosorbide mononitrate (6) COPD (chronic obstructive pulmonary disease) Plan: The patient is not in acute exacerbation. I do not see that he is on any outpatient inhalers. He is stable at the moment. (7) RLS (restless legs syndrome) Is this a current diagnosis for this admission?: YesPlan: The patient is not currently on any medications to control RLS. We will monitor. - Time Time Spent with patient: 15-24 minutes - Inpatient Certification Medical Necessity: Need Close Monitoring Due to Risk of Patient Decompensation
--- NOTE | 2017-03-13 15:55 | Operative Report ---
Operative Report DATE OF SURGERY: 03/13/17 PREOPERATIVE DIAGNOSIS: ESRD POSTOPERATIVE DIAGNOSIS: ESRD OPERATION: 1. Ultrasound evaluation of the right femoral vein. 2. Insertion of temporary hemodialysis catheter via real-time access in the right femoral vein. SURGEON: ROSIBEL LANDEROS OUTSIDE EVENT SALES SPECIALIST: None ANESTHESIA: Local TISSUE REMOVED OR ALTERED: Not applicable. COMPLICATIONS: None ESTIMATED BLOOD LOSS: 5 mL. INTRAOPERATIVE FINDINGS: Satisfactory and safe axis in the right femoral vein, and this patient was an elevated INR. Easy egress of blood and ingress of heparinized solution through all 3 ports. PROCEDURE: After obtaining informed consent, the patient was positioned supine at bedside. The left groin and adjacent areas] were prepared with chlorhexidine and draped out with sterile linen. After the universal timeout the procedure commenced. A steriley sheathed ultrasound probe was used to evaluate the right femoral vein. Local anesthesia was infiltrated adjacent to the probe. Access into the right femoral was accomplished using a micropuncture needle followed, by micropuncture wire and then with a micropuncture catheter. This was followed by introduction of a 0.035 guidewire, the skin opening was enlarged slightly, serially larger dilators were now placed followed by introduction of a triaysis catheter. All of these transitions were smooth. Each lumen was aspirated of blood and irrigated with heparinized solution. The catheter was now sutured to the skin using 3-0 nylon. A Bio A patch was now applied, followed by sterile dressings. Caps were placed on the end of the each of the lumens. The procedure concluded. Copies dictated operative report to Dr. Rosibel Gardiner MD.
[2017-03-13] MEDS ORDERED: HEPARIN SOD (PORCINE) 1,000 UNIT/ML 10 ML VIAL IV PRN (17:15)
[2017-03-13] MEDS: FOLIC ACID/VITAMIN B COMP W-C CAPSULE PO SCH (18:18)
--- NOTE | 2017-03-13 18:58 | PDOC PROGRESS REPORT ---
Subjective Progress Note for:: 03/13/17 Subjective:: I saw the patient during dialysis this afternoon. Patient was really looking pretty good and has no complaints. He does admit that he does feel good. The problem he has is he cannot sleep. Denies any shortness of breathing. He is tolerating dialysis without any problems. He underwent right inguinal trialysis catheter placement by Dr. Gardiner this morning. A PermCath will be placed once his PT and INR are acceptable. Milder going to continue to monitor the patient during dialysis treatment. Physical Exam Vital Signs: Temp Pulse Resp BP Pulse Ox 97.8 F 60 21 H 147/58 H 100 03/13/17 11:16 03/13/17 11:16 03/13/17 11:16 03/13/17 11:16 03/13/17 11:16 Intake & Output 03/12/17 03/13/17 03/14/17 06:59 06:59 06:59 Intake Total 233 Output Total 2400 1110 Balance -2167 -1110 Weight 89 kg Vital signs during dialysis treatment: blood pressure 129/62, heart rate of 59, blood flow rate of 250 mL/min, dialysate flow rate of 500 mL/min. Exam: General appearance: PRESENT: no acute distress, cooperative, well-developed, well-nourished Head exam: PRESENT: atraumatic, normocephalic Eye exam: PRESENT: conjunctiva pale, PERRLA. ABSENT: scleral icterus Neck exam: ABSENT: JVD Respiratory exam: PRESENT: Diminished breath sounds. ABSENT: crackles, rales, rhonchi, unlabored, wheezes Cardiovascular exam: PRESENT: Regular rate rhythm -+S1, +S2. Grade 2/6 systolic ejection murmur ABSENT: diastolic murmur GI/Abdominal exam: PRESENT: normal bowel sounds, soft. ABSENT: guarding, mass, tenderness Extremities exam: Trace bilateral lower extremity edema Neurological exam: PRESENT: alert, awake, oriented to person, place and time. Skin exam: PRESENT: dry, warm, positive mild pallor Results Laboratory Results: 03/13/17 05:30 03/13/17 05:30 03/13/17 03/13/17 03/13/17 04:07 05:30 05:30 WBC 8.5 RBC 2.88 L Hgb 8.8 L Hct 26.6 L MCV 93 MCH 30.7 MCHC 33.2 RDW 17.2 H Plt Count 199 Sodium 139.4 Potassium 3.9 Chloride 98 Carbon Dioxide 30 Anion Gap 11 BUN 94 H Creatinine 5.63 H Est GFR ( Amer) 12 L Est GFR (Non-Af Amer) 10 L Glucose 91 Calcium 9.0 Phosphorus 6.3 H Magnesium 2.7 H Total Bilirubin 1.1 AST 29 ALT 40 Alkaline Phosphatase 93 Total Protein 6.7 Albumin 3.6 Triglycerides 60 Cholesterol 145.85 LDL Cholesterol Direct 93 VLDL Cholesterol 12.0 HDL Cholesterol 36 L TSH Urine Color STRAW Urine Appearance CLEAR Urine pH 7.0 Ur Specific [place] 1.004 Urine Protein NEGATIVE Urine Glucose (UA) NEGATIVE Urine Ketones NEGATIVE Urine Blood NEGATIVE Urine Nitrite NEGATIVE Ur Leukocyte Esterase NEGATIVE Urine WBC (Auto) 0 Urine RBC (Auto) 0 03/13/17 05:30 WBC RBC Hgb Hct MCV MCH MCHC RDW Plt Count Sodium Potassium Chloride Carbon Dioxide Anion Gap BUN Creatinine Est GFR ( Amer) Est GFR (Non-Af Amer) Glucose Calcium Phosphorus Magnesium Total Bilirubin AST ALT Alkaline Phosphatase Total Protein Albumin Triglycerides Cholesterol LDL Cholesterol Direct VLDL Cholesterol HDL Cholesterol TSH 4.15 Urine Color Urine Appearance Urine pH Ur Specific [place] Urine Protein Urine Glucose (UA) Urine Ketones Urine Blood Urine Nitrite Ur Leukocyte Esterase Urine WBC (Auto) Urine RBC (Auto) 03/13/17 05:30 NT-Pro-B Natriuret Pep 14512 H Impressions: Chest X-Ray 03/13/17 08:00 IMPRESSION: Cardiomegaly. No acute consolidations are identified. Assessment & Plan - Diagnosis (1) End stage renal disease on dialysis Is this a current diagnosis for this admission?: YesPlan: This is due to chronic cardiorenal syndrome. Patient's records, history and labs consistent with progressive deterioration of kidney function now with end- stage renal disease requiring hemodialysis treatment. At the at this stage the patient would benefit from initiation of chronic hemodialysis treatment to maintain volume and solute control. This will help hopefully prevent frequent exacerbations of congestive heart failure if we can control his volume through hemodialysis consistently. I had an extensive discussion with the patient regarding hemodialysis treatment versus peritoneal dialysis treatment. Due to his living condition and his age I think it is appropriate for him to do in-center hemodialysis treatment. Explained to patient how the procedure is done and the need for vascular access in the form of a catheter initially and later on AV fistula. Discussed the benefits as is stated above. Also discussed the risk for hemodialysis treatment including bleeding, infection, hemodynamic instability including . After several questions patient agreed to proceed. We did dialysis today for 2.5 hours, using the patient's right inguinal trialysis catheter, with 3 potassium bath, blood flow rate of 250 mL per minute , dialysate flow rate of 500 mL per minute, ultrafiltration 1 L, [no heparin] and Procrit with 20,000 units during dialysis intravenously. Patient was monitored toward and tolerated dialysis very well. We will arrange for PermCath placement here of Dr. Gardiner. turnaround planner to also arrange outpatient dialysis treatment. (2) Cardiorenal syndrome with renal failure Is this a current diagnosis for this admission?: Yes (3) Anemia in chronic kidney disease (CKD) Is this a current diagnosis for this admission?: YesPlan: We will give Epogen and IV Venofer during dialysis treatment. (4) Iron deficiency anemia Is this a current diagnosis for this admission?: Yes (5) Hyperphosphatemia Is this a current diagnosis for this admission?: YesPlan: Start PhosLo 667 mg 2 capsules with meals. (6) Non-ischemic cardiomyopathy Is this a current diagnosis for this admission?: Yes (7) Acute on chronic systolic heart failure Is this a current diagnosis for this admission?: Yes (8) RLS (restless legs syndrome) Is this a current diagnosis for this admission?: Yes - Notes Notes: Patient tells me today that he plans to go back to his mobile home after discharge at [place]. However the patient lives by himself and the daughter is about 10 minutes away from his mobile home. I suggested to him that he might qualify for rehabilitation placement so he does not have to be alone while his daughter is finding him a place like an assisted living. He seems to be very favorable about this idea. I told him to talk to his daughter about it and to talk to the project planner. Depending on where he will be discharged to, will be where his dialysis will be continued patient either in [place] or in [place]. Again if he will be in the [place] area he needs to find new lockstitch hemmer who will follow him in the dialysis unit there. This should be arranged by the project planner. He ends up in the rehab facility here in [place] that I can follow him in 1 of the [facility] dialysis unit here. Patient understood. - Time Time with patient: 15-25 minutes
[2017-03-13] MEDS: TAMSULOSIN HCL 0.4 MG CAP.SR.24H PO SCH (21:15)
[2017-03-14] MEDS: ISOSORBIDE MONONITRATE 20 MG TABLET PO SCH ×3 (05:25→22:03)
[2017-03-14] MEDS: HYDRALAZINE HCL 50 MG TABLET PO SCH ×3 (05:26→22:02)
[2017-03-14 07:50] LABS: PTH INTACT 114 pg/mL (15-65)
[2017-03-14] MEDS: CALCIUM ACETATE 667 MG CAPSULE PO SCH ×3 (09:55→17:33)
[2017-03-14] MEDS: CARVEDILOL 12.5 MG TABLET PO SCH ×2 (09:55→22:03)
[2017-03-14] MEDS: DIGOXIN 0.125 MG TABLET PO SCH (09:55)
[2017-03-14] MEDS: SODIUM BICARBONATE 650 MG TABLET PO SCH ×3 (09:56→17:33)
[2017-03-14] MEDS: AMIODARONE HCL 200 MG TABLET PO SCH (09:56)
[2017-03-14] MEDS: FUROSEMIDE INJ/PF 20 MG/2 ML SDV IV SCH (09:56)
--- NOTE | 2017-03-14 11:49 | Physician Advisory Note ---
Physician Advisor ProgressNote .: Pursuant to the plan for [facility], I have reviewed the medical record for this patient. Physician Advisor Statement: Great documentation overall, as usual. Please consider documentin. "Anemia of CKD" 2. "cardiorenal syndrome" 3. "prior CKD 4 now ESRD" Thanks! CK
--- NOTE | 2017-03-14 12:07 | PDOC PROGRESS REPORT ---
Subjective Progress Note for:: 03/14/17 Subjective:: This is a follow-up visit for end-stage renal disease and acute on chronic systolic heart failure. The patient feels much better today. He has is oxygen on top of his head and is breathing well. He denies any chest pain or SOB Physical Exam Vital Signs: Temp Pulse Resp BP Pulse Ox 98.1 F 68 16 138/51 H 99 03/14/17 07:23 03/14/17 10:34 03/14/17 10:34 03/14/17 07:23 03/14/17 10:34 Intake & Output 03/13/17 03/14/17 03/15/17 06:59 06:59 06:59 Intake Total 233 1354 Output Total 2400 5065 Balance -2167 -2481 Weight 89 kg 85.5 kg GENERAL: This is a well-developed well-nourished appearing white male resting in bed currently in no acute distress. He is quite a pleasant gentleman. HEART: Regular rate and rhythm. 2/6 systolic ejection murmur. No, rubs or gallops. LUNGS: Clear to auscultation bilaterally with equal rise and fall of the chest. ABDOMEN: Soft, nontender, nondistended with normoactive bowel sounds EXTREMETIES: No clubbing, cyanosis. trace pitting edema. NEURO: Awake, alert and oriented 3. Cranial nerves II through XII. Results Laboratory Results: 03/13/17 05:30 03/13/17 05:30 03/13/17 05:30 PTH Intact 114 H 03/13/17 05:30 NT-Pro-B Natriuret Pep [id number] H Impressions: Chest X-Ray 03/13/17 08:00 IMPRESSION: Cardiomegaly. No acute consolidations are identified. Assessment & Plan - Diagnosis (1) Acute respiratory failure with hypoxemia Plan: Secondary to underlying heart failure and ESRD and COPD. the patient has made significant improvement since admission and dialysis. Continue oxygen. Wean as needed. Continue As needed albuterol Atrovent nebulizers. (2) Acute on chronic systolic heart failure Is this a current diagnosis for this admission?: Yes (3) Acute kidney injury superimposed on chronic kidney disease Plan: This has progressed to ESRD with need of HD secondary to cardiorenal syndrome. the patient tolerated dialysis well yesterday. He has a temporary catheter in place and will need a permcath placed once INR is acceptable to surgery service. DC planning making arrangements for outpatient dialysis. (4) Atrial fibrillation Plan: Warfarin on hold for temp catheter placement. I remains on hold for placement of permacath. Recheck INR. Perhaps this can be accomplished tomorrow. (5) Hypertension Qualifiers: Hypertension type: essential hypertension Qualified Code(s): I10 - Essential (primary) hypertension Is this a current diagnosis for this admission?: YesPlan: Continue carvedilol, Isosorbide mononitrate (6) COPD (chronic obstructive pulmonary disease) Plan: The patient is not in acute exacerbation. I do not see that he is on any outpatient inhalers. He is stable at the moment. (7) RLS (restless legs syndrome) Is this a current diagnosis for this admission?: YesPlan: The patient is not currently on any medications to control RLS. We will monitor. - Time Time Spent with patient: 15-24 minutes - Inpatient Certification Medical Necessity: Need Close Monitoring Due to Risk of Patient Decompensation
[2017-03-14] MEDS: FOLIC ACID/VITAMIN B COMP W-C CAPSULE PO SCH (17:33)
--- NOTE | 2017-03-14 19:52 | PDOC PROGRESS REPORT ---
Subjective Progress Note for:: 03/14/17 Subjective:: Patient seems to be doing better with gradual improvement. Pt is denying any chest arm or neck discomfort. Patient denying any PND, orthopnea. Patient denied any sustained palpitations, dizziness, syncope, near syncope. Patient denying any fever chills. Patient denying any other significant discomfort. Patient is maintaining sinus rhythm with ventricular paced beats and occasionally AV paced beats no sustained tachycardia or bradycardia arrhythmias noted. Review of systems: Rest review of systems negative. Medications: Medications have been reviewed. Physical Exam Vital Signs: Temp Pulse Resp BP Pulse Ox 98.0 F 61 22 H 126/52 H 98 03/14/17 19:20 03/14/17 19:20 03/14/17 19:20 03/14/17 19:20 03/14/17 19:20 Intake & Output 03/13/17 03/14/17 03/15/17 06:59 06:59 06:59 Intake Total 233 1354 1428 Output Total 2400 3835 1300 Balance -2167 -2481 128 Weight 89 kg 85.5 kg Exam: GENERAL: well-nourished and in no acute distress. Alert and oriented x3 HEAD: Atraumatic, normocephalic. EYES: Pupils equal round and reactive to light, extraocular movements intact, sclera anicteric, conjunctiva are normal. ENT: TMs normal, nares patent, oropharynx clear without exudates. Moist mucous membranes. No oral ulcerations or bleeding gums noted NECK: supple without lymphadenopathy. Trachea is central. No cervical or axillary lymphadenopathy noted. Carotids are 2+, JVD WNL LUNGS: Respiration seems nonlabored, no significant accessory muscle action noted. Breath sounds clear to auscultation bilaterally and equal noted. No wheezes rales or rhonchi noted. No significant dullness noted on percussion. CHEST: Palpation of the chest wall shows no significant chest wall tenderness. No other significant abnormalities noted. HEART: [place] FISHER LOBSTER, No PSH, 1/6 LIOR aortic area, 1/6 rea systolic murmur mitral area, no rubs, no gallops. ABDOMEN: Soft, no significant tenderness appreciated, normoactive bowel sounds. No guarding, no rebound. No rigidity noted . No masses appreciated. EXTREMITIES: Pedal pulses are 1-2+, no calf tenderness noted. No clubbing or cyanosis. 1+ pedal edema noted NEUROLOGICAL: Focused neurological exam showed no significant neurologic deficit. Normal speech, no focal weakness appreciated. PSYCH: Normal mood, normal affect. Judgment and insight within normal limits. SKIN: No significant ecchymosis, rash, ulcerations or signs of pruritus noted. MUSCULOSKELETAL EXAM: No significant joint swelling noted. Results Laboratory Results: 03/13/17 05:30 03/13/17 05:30 03/13/17 05:30 PTH Intact 114 H 03/13/17 05:30 NT-Pro-B Natriuret Pep [id number] H Impressions: Chest X-Ray 03/13/17 08:00 IMPRESSION: Cardiomegaly. No acute consolidations are identified. Assessment & Plan - Diagnosis (1) Acute on chronic systolic heart failure Is this a current diagnosis for this admission?: Yes (2) Cardiac defibrillator in situ Is this a current diagnosis for this admission?: Yes (3) Chronic kidney disease Qualifiers: Chronic kidney disease stage: stage 5, not on chronic dialysis Qualified Code(s): N18.5 - Chronic kidney disease, stage 5 Is this a current diagnosis for this admission?: Yes (4) Hypertension Qualifiers: Hypertension type: essential hypertension Qualified Code(s): I10 - Essential (primary) hypertension Is this a current diagnosis for this admission?: Yes (5) Non-ischemic cardiomyopathy Is this a current diagnosis for this admission?: Yes - Notes Notes: Acute on chronic systolic heart failure: Patient has severely depressed LVEF. Patient does have a functioning defibrillator, biventricular in situ. Will try to optimize medical management. Patient will definitely benefit from fluid removal on dialysis and initiation of dialysis therapy. Patient's medication reviewed. Patient on hydralazine nitrate combination, carvedilol therapy. Once patient started on dialysis, will recommend initiating angiotensin receptor bharati/DAVID inhibitor therapy. Cardiac defibrillator in situ: Seems functioning normally. Patient chest x-ray showed additional LV lead in coronary sinus addition to right atrial and left right ventricular lead. Chronic kidney disease: Stage V or even worse. Nephrology is seen. Plans are to initiate dialysis. Cardiomyopathy: Believed to be non-ischemic. We will try to obtain previous records. Medical regimen is being optimized. Hypertension: Reasonably well controlled. Blood pressure goal in this patient is 135/85 or less. This was discussed with the patient. Currently blood pressure under reasonable control. Better medication for this patient are DAVID inhibitor/ARB/beta bharati etc. discussed side effects of uncontrolled hypertension and also severe hypotension. These will be considered once patient is started on dialysis. - Time Time with patient: Greater than 35 minutes - CODE STATUS was discussed, patient remains full code. Surrogate decision-maker unchanged. Multiple medical problems were addressed. More than 50% of the time spent coordinating care, discussing management plans with involved caregivers. Management plans discussed with involved personnels. Medical decision making was of moderate to high complexity, patient's has multiple comorbidities. Medications reviewed and adjusted accordingly: Yes
[2017-03-14 21:07] LABS: HEPATITIS C QUANTITATION HCV Not Detected IU/mL (.)
[2017-03-14] MEDS: TAMSULOSIN HCL 0.4 MG CAP.SR.24H PO SCH (22:02)
[2017-03-14] MEDS: FUROSEMIDE INJ/PF 100 MG/10 ML SDV IV SCH (22:03)
[2017-03-14] MEDS: LATANOPROST 0.005% OPH SOLN 2.5 ML OU SCH (22:04)
[2017-03-15] MEDS ORDERED: NORMAL SALINE 1000 ML 1,000 ML IV PRN (05:00)
[2017-03-15] MEDS ORDERED: HEPARIN SOD (PORCINE) 1,000 UNIT/ML 10 ML VIAL IV PRN (05:00)
[2017-03-15] MEDS ORDERED: IRON SUCROSE COMPLEX INJ/PF 100 MG/5 ML SDV IV PRN (05:00)
[2017-03-15] MEDS ORDERED: EPOETIN ALFA INJ 20000 UNIT/1 ML VIAL (RENAL) IV PRN (05:00)
[2017-03-15 05:45] LABS: ABSOLUTE BASOPHILS # (AUTO) 0.1 10^3/uL (0.0-0.2); ABSOLUTE EOSINOPHILS # (AUTO) 0.5 10^3/uL (0.0-0.6); ABSOLUTE LYMPHOCYTES (AUTO) 0.7 10^3/uL (0.5-4.7); ABSOLUTE MONOCYTES (AUTO) 1.2 10^3/uL (0.1-1.4); ABSOLUTE NEUT (AUTO) 6.5 10^3/uL (1.7-8.2); BASOPHILS % (AUTO) 1.1 % (0-2); EOSINOPHILS % (AUTO) 5.4 % (0-6); HEMATOCRIT 27.6 % (37.9-51.0); HEMOGLOBIN 9.1 g/dL (13.5-17.0); HGB HCT DIFFERENCE -0.3; LYMPHOCYTES % (AUTO) 8.1 % (13-45); MEAN CORPUSCULAR HEMOGLOBIN 30.7 pg (27.0-33.4); MEAN CORPUSCULAR HGB CONC 33.1 g/dL (32.0-36.0); MEAN CORPUSCULAR VOLUME 93 fl (80-97); MONOCYTES % (AUTO) 13.1 % (3-13); RED BLOOD COUNT 2.98 10^6/uL (4.35-5.55); SEGMENTED NEUTROPHILS % (AUTO) 72.3 % (42-78); WHITE BLOOD COUNT 9.1 10^3/uL (4.0-10.5)
[2017-03-15 05:59] LABS: PROTHROMBIN TIME 18.8 SEC (11.4-15.4)
[2017-03-15 06:09] LABS: ANION GAP 15 (5-19); BLOOD UREA NITROGEN 85 mg/dL (7-20); CALCIUM 9.1 mg/dL (8.4-10.2); CARBON DIOXIDE 30 mmol/L (22-30); CHLORIDE 94 mmol/L (98-107); CREATININE RESULT 4.74 mg/dL (0.52-1.25); GLUCOSE 88 mg/dL (75-110); MAGNESIUM 2.3 mg/dL (1.6-2.3); POTASSIUM 3.7 mmol/L (3.6-5.0)
[2017-03-15] MEDS: HYDRALAZINE HCL 50 MG TABLET PO SCH ×3 (07:27→21:43)
[2017-03-15] MEDS: ISOSORBIDE MONONITRATE 20 MG TABLET PO SCH ×3 (07:27→21:42)
[2017-03-15] MEDS: CALCIUM ACETATE 667 MG CAPSULE PO SCH ×3 (11:37→17:56)
[2017-03-15] MEDS: CARVEDILOL 12.5 MG TABLET PO SCH ×2 (13:27→21:44)
[2017-03-15] MEDS: FUROSEMIDE INJ/PF 100 MG/10 ML SDV IV SCH ×2 (13:27→21:41)
[2017-03-15] MEDS: AMIODARONE HCL 200 MG TABLET PO SCH (13:34)
[2017-03-15] MEDS: DIGOXIN 0.125 MG TABLET PO SCH (13:34)
--- NOTE | 2017-03-15 15:44 | PDOC PROGRESS REPORT ---
Subjective Progress Note for:: 03/15/17 Subjective:: This is a follow-up visit for end-stage renal disease and acute on chronic systolic heart failure. Patient was seen while he was receiving dialysis. He denies any chest pain or shortness of breath. However, he did tell me he had an episode of shortness of breath overnight and had to be placed back on oxygen temporarily. The patient expresses feeling tired. Physical Exam Vital Signs: Temp Pulse Resp BP Pulse Ox 98.4 F 59 L 20 137/54 H 97 03/15/17 07:33 03/15/17 07:33 03/15/17 07:33 03/15/17 07:33 03/15/17 07:33 Intake & Output 03/14/17 03/15/17 03/16/17 06:59 06:59 06:59 Intake Total 1354 1669 Output Total 3835 0576 Balance -9123 -371 Weight 85.5 kg 83.4 kg GENERAL: This is a well-developed well-nourished appearing white male resting in a recliner currently in no acute distress. He is quite a pleasant gentleman. HEART: Regular rate and rhythm. 2/6 systolic ejection murmur. No, rubs or gallops. LUNGS: Clear to auscultation bilaterally with equal rise and fall of the chest. ABDOMEN: Soft, nontender, nondistended with normoactive bowel sounds EXTREMETIES: No clubbing, cyanosis. trace edema. NEURO: Awake, alert and oriented 3. Cranial nerves II through XII. Results Laboratory Results: 03/15/17 05:01 03/15/17 05:01 03/13/17 03/15/17 03/15/17 05:30 05:01 05:01 WBC 9.1 RBC 2.98 L Hgb 9.1 L Hct 27.6 L MCV 93 MCH 30.7 MCHC 33.1 RDW 17.0 H Plt Count 176 Seg Neutrophils % 72.3 Lymphocytes % 8.1 L Monocytes % 13.1 H Eosinophils % 5.4 Basophils % 1.1 Absolute Neutrophils 6.5 Absolute Lymphocytes 0.7 Absolute Monocytes 1.2 Absolute Eosinophils 0.5 Absolute Basophils 0.1 Sodium 139.0 Potassium 3.7 Chloride 94 L Carbon Dioxide 30 Anion Gap 15 BUN 85 H Creatinine 4.74 H Est GFR ( Amer) 14 L Est GFR (Non-Af Amer) 12 L Glucose 88 Calcium 9.1 Magnesium 2.3 PTH Intact 114 H 03/13/17 05:30 NT-Pro-B Natriuret Pep [id number] H Impressions: Chest X-Ray 03/13/17 08:00 IMPRESSION: Cardiomegaly. No acute consolidations are identified. Assessment & Plan - Diagnosis (1) Acute respiratory failure with hypoxemia Plan: Secondary to underlying heart failure and ESRD and COPD. the patient has made significant improvement since admission and dialysis. Continue oxygen. Wean as needed. Continue As needed albuterol Atrovent nebulizers. (2) Acute on chronic systolic heart failure Is this a current diagnosis for this admission?: YesPlan: The patient is acutely in heart failure. continue with Lasix 60 mg IV twice daily. Monitor renal function. The patient has had an acute decompensation. Cardiology is following. continue digoxin and carvedilol, statin as well as isosorbide. (3) Acute kidney injury superimposed on chronic kidney disease Plan: This has progressed to ESRD with need of HD secondary to cardiorenal syndrome. the patient tolerated dialysis well yesterday. He has a temporary catheter in place and will need a permcath placed once INR is acceptable to surgery service. DC planning making arrangements for outpatient dialysis. And hopefully SNF placement in [place]. (4) Atrial fibrillation Plan: Warfarin on hold for temp catheter placement. I remains on hold for placement of permacath. (5) Hypertension Qualifiers: Hypertension type: essential hypertension Qualified Code(s): I10 - Essential (primary) hypertension Is this a current diagnosis for this admission?: YesPlan: Continue carvedilol, Isosorbide mononitrate (6) COPD (chronic obstructive pulmonary disease) Plan: The patient is not in acute exacerbation. I do not see that he is on any outpatient inhalers. He is stable at the moment. (7) RLS (restless legs syndrome) Is this a current diagnosis for this admission?: YesPlan: The patient is not currently on any medications to control RLS. We will monitor. - Time Time Spent with patient: 15-24 minutes - Inpatient Certification Medical Necessity: Need Close Monitoring Due to Risk of Patient Decompensation
--- NOTE | 2017-03-15 16:59 | PDOC PROGRESS REPORT ---
Subjective Progress Note for:: 03/15/17 Subjective:: Saw the patient during dialysis treatment this morning at around 8:20 AM. He is relating that last night he did not sleep well and that he had an episode of shortness of breath but not currently this morning. He said he is a little bit comfortable this morning and denies any chest pains. Again that he does not really have any complaints. Physical Exam Vital Signs: Temp Pulse Resp BP Pulse Ox 98.4 F 60 20 137/54 H 96 03/15/17 07:33 03/15/17 14:00 03/15/17 07:33 03/15/17 07:33 03/15/17 16:00 Intake & Output 03/14/17 03/15/17 03/16/17 06:59 06:59 06:59 Intake Total 1354 1669 Output Total 3835 2375 Balance -2481 -706 Weight 85.5 kg 83.4 kg Exam: General appearance: PRESENT: no acute distress, cooperative, well-developed, well-nourished Head exam: PRESENT: atraumatic, normocephalic Eye exam: PRESENT: conjunctiva pale, PERRLA. ABSENT: scleral icterus Neck exam: ABSENT: JVD Respiratory exam: PRESENT: Normal breath sounds. ABSENT: crackles, rales, rhonchi, unlabored, wheezes Cardiovascular exam: PRESENT: Irregular rate rhythm -+S1, +S2. Grade 2/6 diastolic ejection murmur ABSENT: diastolic murmur okay GI/Abdominal exam: PRESENT: normal bowel sounds, soft. ABSENT: guarding, mass, tenderness Extremities exam: ABSENT: No edema Neurological exam: PRESENT: alert, awake, oriented to person, place and time. Skin exam: PRESENT: dry, warm, Results Laboratory Results: 03/15/17 05:01 03/15/17 05:01 03/13/17 03/15/17 03/15/17 05:30 05:01 05:01 WBC 9.1 RBC 2.98 L Hgb 9.1 L Hct 27.6 L MCV 93 MCH 30.7 MCHC 33.1 RDW 17.0 H Plt Count 176 Seg Neutrophils % 72.3 Lymphocytes % 8.1 L Monocytes % 13.1 H Eosinophils % 5.4 Basophils % 1.1 Absolute Neutrophils 6.5 Absolute Lymphocytes 0.7 Absolute Monocytes 1.2 Absolute Eosinophils 0.5 Absolute Basophils 0.1 Sodium 139.0 Potassium 3.7 Chloride 94 L Carbon Dioxide 30 Anion Gap 15 BUN 85 H Creatinine 4.74 H Est GFR ( Amer) 14 L Est GFR (Non-Af Amer) 12 L Glucose 88 Calcium 9.1 Magnesium 2.3 PTH Intact 114 H 03/13/17 05:30 NT-Pro-B Natriuret Pep [id number] H Impressions: Chest X-Ray 03/13/17 08:00 IMPRESSION: Cardiomegaly. No acute consolidations are identified. Assessment & Plan - Diagnosis (1) End stage renal disease on dialysis Is this a current diagnosis for this admission?: YesPlan: This is due to chronic cardiorenal syndrome. Patient's records, history and labs consistent with progressive deterioration of kidney function now with end- stage renal disease requiring hemodialysis treatment. At the at this stage the patient would benefit from initiation of chronic hemodialysis treatment to maintain volume and solute control. This will help hopefully prevent frequent exacerbations of congestive heart failure if we can control his volume through hemodialysis consistently. I had an extensive discussion with the patient regarding hemodialysis treatment versus peritoneal dialysis treatment. Due to his living condition and his age I think it is appropriate for him to do in-center hemodialysis treatment. Explained to patient how the procedure is done and the need for vascular access in the form of a catheter initially and later on AV fistula. Discussed the benefits as is stated above. Also discussed the risk for hemodialysis treatment including bleeding, infection, hemodynamic instability including . After several questions patient agreed to proceed. We did dialysis today for 3 hours, using the patient's right inguinal trialysis catheter, with 3 potassium bath, blood flow rate of 300 mL per minute, dialysate flow rate of 500 mL per minute, ultrafiltration 1-2 l, no heparin and Procrit with 20,000 units during dialysis intravenously. Patient was monitored toward and tolerated dialysis very well. Head is scheduled to be placed on Saturday by Dr. Gardiner. dredge lever operator to also arrange outpatient dialysis treatment. (2) Cardiorenal syndrome with renal failure Is this a current diagnosis for this admission?: Yes (3) Anemia in chronic kidney disease (CKD) Is this a current diagnosis for this admission?: YesPlan: We will give Epogen and IV Venofer during dialysis treatment. (4) Iron deficiency anemia Is this a current diagnosis for this admission?: Yes (5) Hyperphosphatemia Is this a current diagnosis for this admission?: YesPlan: Start PhosLo 667 mg 2 capsules with meals. (6) Non-ischemic cardiomyopathy Is this a current diagnosis for this admission?: Yes (7) Acute on chronic systolic heart failure Is this a current diagnosis for this admission?: Yes (8) RLS (restless legs syndrome) Is this a current diagnosis for this admission?: Yes - Time Time with patient: 15-25 minutes
[2017-03-15] MEDS: FOLIC ACID/VITAMIN B COMP W-C CAPSULE PO SCH (17:57)
--- NOTE | 2017-03-15 19:34 | PDOC PROGRESS REPORT ---
Subjective Progress Note for:: 03/15/17 Subjective:: Patient was seen on dialysis today and is tolerating dialysis. This was his second dialysis. Patient seems to be doing better with gradual improvement. Pt is denying any chest arm or neck discomfort. Patient denying any PND, orthopnea. Patient denied any sustained palpitations, dizziness, syncope, near syncope. Patient denying any fever chills. Patient denying any other significant discomfort. Patient is maintaining sinus rhythm with ventricular paced beats and occasionally AV paced beats no sustained tachycardia or bradycardia arrhythmias noted. Review of systems: Rest review of systems negative. Medications: Medications have been reviewed. Physical Exam Vital Signs: Temp Pulse Resp BP Pulse Ox 97.9 F 60 20 138/62 H 96 03/15/17 14:34 03/15/17 14:34 03/15/17 14:34 03/15/17 14:34 03/15/17 16:00 Intake & Output 03/14/17 03/15/17 03/16/17 06:59 06:59 06:59 Intake Total 1354 1669 721 Output Total 3835 2375 2700 Balance -4471 -546 -2421 Weight 85.5 kg 83.4 kg Exam: GENERAL: well-nourished and in no acute distress. Alert and oriented x3 HEAD: Atraumatic, normocephalic. EYES: Pupils equal round and reactive to light, extraocular movements intact, sclera anicteric, conjunctiva are normal. ENT: TMs normal, nares patent, oropharynx clear without exudates. Moist mucous membranes. No oral ulcerations or bleeding gums noted NECK: supple without lymphadenopathy. Trachea is central. No cervical or axillary lymphadenopathy noted. Carotids are 2+, JVD WNL LUNGS: Respiration seems nonlabored, no significant accessory muscle action noted. Breath sounds clear to auscultation bilaterally and equal noted. No wheezes rales or rhonchi noted. No significant dullness noted on percussion. CHEST: Palpation of the chest wall shows no significant chest wall tenderness. No other significant abnormalities noted. 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 ABDOMEN: Soft, no significant tenderness appreciated, normoactive bowel sounds. No guarding, no rebound. No rigidity noted . No masses appreciated. EXTREMITIES: Pedal pulses are 1-2+, no calf tenderness noted. No clubbing or cyanosis.trace to 1+ pedal edema noted NEUROLOGICAL: Focused neurological exam showed no significant neurologic deficit. Normal speech, no focal weakness appreciated. PSYCH: Normal mood, normal affect. Judgment and insight within normal limits. SKIN: No significant ecchymosis, rash, ulcerations or signs of pruritus noted. MUSCULOSKELETAL EXAM: No significant joint swelling noted. Results Laboratory Results: 03/15/17 05:01 03/15/17 05:01 03/13/17 03/15/17 03/15/17 05:30 05:01 05:01 WBC 9.1 RBC 2.98 L Hgb 9.1 L Hct 27.6 L MCV 93 MCH 30.7 MCHC 33.1 RDW 17.0 H Plt Count 176 Seg Neutrophils % 72.3 Lymphocytes % 8.1 L Monocytes % 13.1 H Eosinophils % 5.4 Basophils % 1.1 Absolute Neutrophils 6.5 Absolute Lymphocytes 0.7 Absolute Monocytes 1.2 Absolute Eosinophils 0.5 Absolute Basophils 0.1 Sodium 139.0 Potassium 3.7 Chloride 94 L Carbon Dioxide 30 Anion Gap 15 BUN 85 H Creatinine 4.74 H Est GFR ( Amer) 14 L Est GFR (Non-Af Amer) 12 L Glucose 88 Calcium 9.1 Magnesium 2.3 PTH Intact 114 H 03/13/17 05:30 NT-Pro-B Natriuret Pep [id number] H Impressions: Chest X-Ray 03/13/17 08:00 IMPRESSION: Cardiomegaly. No acute consolidations are identified. Assessment & Plan - Diagnosis (1) Acute on chronic systolic heart failure Is this a current diagnosis for this admission?: Yes (2) Cardiac defibrillator in situ Is this a current diagnosis for this admission?: Yes (3) Chronic kidney disease Qualifiers: Chronic kidney disease stage: stage 5, not on chronic dialysis Qualified Code(s): N18.5 - Chronic kidney disease, stage 5 Is this a current diagnosis for this admission?: Yes (4) Hypertension Qualifiers: Hypertension type: essential hypertension Qualified Code(s): I10 - Essential (primary) hypertension Is this a current diagnosis for this admission?: Yes (5) Non-ischemic cardiomyopathy Is this a current diagnosis for this admission?: Yes - Notes Notes: Acute on chronic systolic heart failure: Patient has severely depressed LVEF. Patient does have a functioning defibrillator, biventricular in situ. Will try to optimize medical management. Patient will definitely benefit from fluid removal on dialysis and initiation of dialysis therapy. Patient's medication reviewed. Patient on hydralazine nitrate combination, carvedilol therapy. Will start patient on angiotensin receptor bharati/DAVID inhibitor therapy. Cardiac defibrillator in situ: Seems functioning normally. Patient chest x-ray showed additional LV lead in coronary sinus addition to right atrial and left right ventricular lead. Telemetry strip shows normal functioning. Chronic kidney disease: Stage V or even worse. Nephrology is seen. Patient tells me today is his second dialysis. Tolerating well. Cardiomyopathy: Believed to be non-ischemic. We will try to obtain previous records. Medical regimen is being optimized. Hypertension: Reasonably well controlled. Blood pressure goal in this patient is 135/85 or less. This was discussed with the patient. Currently blood pressure under reasonable control. Better medication for this patient are DAVID inhibitor/ARB/beta bharati etc. discussed side effects of uncontrolled hypertension and also severe hypotension. These will be considered once patient is started on dialysis. - Time Time with patient: 15-25 minutes - CODE STATUS was discussed, patient remains full code. Surrogate decision-maker unchanged. Multiple medical problems were addressed. More than 50% of the time spent coordinating care, discussing management plans with involved caregivers. Management plans discussed with involved personnels. Medical decision making was of moderate to high complexity , patient's has multiple comorbidities. Medications reviewed and adjusted accordingly: Yes
[2017-03-15] MEDS: LISINOPRIL 5 MG TABLET PO SCH (21:43)
[2017-03-15] MEDS: TAMSULOSIN HCL 0.4 MG CAP.SR.24H PO SCH (21:43)
[2017-03-15] MEDS: LATANOPROST 0.005% OPH SOLN 2.5 ML OU SCH (21:46)
[2017-03-16] MEDS: HYDRALAZINE HCL 50 MG TABLET PO SCH ×3 (06:03→22:26)
[2017-03-16] MEDS: ISOSORBIDE MONONITRATE 20 MG TABLET PO SCH ×3 (06:03→22:26)
[2017-03-16] MEDS: CALCIUM ACETATE 667 MG CAPSULE PO SCH ×3 (08:19→18:17)
[2017-03-16] MEDS: DIGOXIN 0.125 MG TABLET PO SCH (10:06)
[2017-03-16] MEDS: FUROSEMIDE INJ/PF 100 MG/10 ML SDV IV SCH ×2 (10:06→22:26)
[2017-03-16] MEDS: AMIODARONE HCL 200 MG TABLET PO SCH (10:06)
--- NOTE | 2017-03-16 11:32 | PDOC PROGRESS REPORT ---
Subjective Progress Note for:: 03/16/17 Subjective:: Patient claims that he did not sleep much last night therefore does not feel well. He is denying any chest pain or shortness of breath. He claims that he was diagnosed with restless leg syndrome and is not sleeping because of that reason. Patient seems to be doing better with gradual improvement. Pt is denying any chest arm or neck discomfort. Patient denying any PND, orthopnea. Patient denied any sustained palpitations, dizziness, syncope, near syncope. Patient denying any fever chills. Patient denying any other significant discomfort. Patient is maintaining sinus rhythm with ventricular paced beats and occasionally AV paced beats no sustained tachycardia or bradycardia arrhythmias noted. Review of systems: Rest review of systems negative. Medications: Medications have been reviewed. Physical Exam Vital Signs: Temp Pulse Resp BP Pulse Ox 99.4 F 116 H 18 106/49 L 96 03/16/17 07:32 03/16/17 07:32 03/16/17 07:32 03/16/17 07:32 03/16/17 07:32 Intake & Output 03/15/17 03/16/17 03/17/17 06:59 06:59 06:59 Intake Total 1669 731 Output Total 6235 3175 Balance -706 -2444 Weight 83.4 kg 81.8 kg Exam: GENERAL: well-nourished and in no acute distress. Alert and oriented x3 HEAD: Atraumatic, normocephalic. EYES: Pupils equal round and reactive to light, extraocular movements intact, sclera anicteric, conjunctiva are normal. ENT: TMs normal, nares patent, oropharynx clear without exudates. Moist mucous membranes. No oral ulcerations or bleeding gums noted NECK: supple without lymphadenopathy. Trachea is central. No cervical or axillary lymphadenopathy noted. Carotids are 2+, JVD WNL LUNGS: Respiration seems nonlabored, no significant accessory muscle action noted. Breath sounds clear to auscultation bilaterally and equal noted. No wheezes rales or rhonchi noted. No significant dullness noted on percussion. CHEST: Palpation of the chest wall shows no significant chest wall tenderness. No other significant abnormalities noted. 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 ABDOMEN: Soft, no significant tenderness appreciated, normoactive bowel sounds. No guarding, no rebound. No rigidity noted . No masses appreciated. EXTREMITIES: Pedal pulses are 1-2+, no calf tenderness noted. No clubbing or cyanosis.trace to 1+ pedal edema noted NEUROLOGICAL: Focused neurological exam showed no significant neurologic deficit. Normal speech, no focal weakness appreciated. PSYCH: Normal mood, normal affect. Judgment and insight within normal limits. SKIN: No significant ecchymosis, rash, ulcerations or signs of pruritus noted. MUSCULOSKELETAL EXAM: No significant joint swelling noted. Results Laboratory Results: 03/15/17 05:01 03/15/17 05:01 03/13/17 05:30 NT-Pro-B Natriuret Pep [id number] H Impressions: Chest X-Ray 03/13/17 08:00 IMPRESSION: Cardiomegaly. No acute consolidations are identified. Assessment & Plan - Diagnosis (1) Acute on chronic systolic heart failure Is this a current diagnosis for this admission?: Yes (2) Cardiac defibrillator in situ Is this a current diagnosis for this admission?: Yes (3) Chronic kidney disease Qualifiers: Chronic kidney disease stage: stage 5, not on chronic dialysis Qualified Code(s): N18.5 - Chronic kidney disease, stage 5 Is this a current diagnosis for this admission?: Yes (4) Hypertension Qualifiers: Hypertension type: essential hypertension Qualified Code(s): I10 - Essential (primary) hypertension Is this a current diagnosis for this admission?: Yes (5) Non-ischemic cardiomyopathy Is this a current diagnosis for this admission?: Yes (6) RLS (restless legs syndrome) Is this a current diagnosis for this admission?: Yes - Notes Notes: Acute on chronic systolic heart failure: Patient has severely depressed LVEF. Patient does have a functioning defibrillator, biventricular in situ. Will try to optimize medical management. Patient will definitely benefit from fluid removal on dialysis and initiation of dialysis therapy. Patient's medication reviewed. Patient on hydralazine nitrate combination, carvedilol therapy. Will start patient on angiotensin receptor bharati/DAVID inhibitor therapy. Patient was started on lisinopril 2.5 mg p.o. twice daily yesterday. Patient got first dose last night. Cardiac defibrillator in situ: Seems functioning normally. Patient chest x-ray showed additional LV lead in coronary sinus addition to right atrial and left right ventricular lead. Telemetry strip shows normal functioning. Chronic kidney disease: Stage V or even worse. Nephrology is seen. Stable on dialysis treatment. Tolerating well. Cardiomyopathy: Believed to be non-ischemic. We will try to obtain previous records. Medical regimen is being optimized. Hypertension: Reasonably well controlled. Blood pressure goal in this patient is 135/85 or less. This was discussed with the patient. Currently blood pressure under reasonable control. Restless leg syndrome: Patient claims to have this diagnosis. Will start patient on Neurontin 300 mg p.o. nightly. Hopefully this will help with restless leg syndrome and any neuropathic pain that the patient. - Time Time with patient: 15-25 minutes - CODE STATUS was discussed, patient remains full code. Surrogate decision-maker unchanged. Multiple medical problems were addressed. More than 50% of the time spent coordinating care, discussing management plans with involved caregivers. Management plans discussed with involved personnels. Medical decision making was of moderate to high complexity , patient's has multiple comorbidities. Medications reviewed and adjusted accordingly: Yes
[2017-03-16] MEDS: LISINOPRIL 5 MG TABLET PO SCH ×2 (13:06→22:26)
[2017-03-16] MEDS: CARVEDILOL 12.5 MG TABLET PO SCH ×2 (13:06→22:26)
--- NOTE | 2017-03-16 15:50 | PDOC PROGRESS REPORT ---
Subjective Progress Note for:: 03/16/17 Subjective:: This is a follow-up visit for end-stage renal disease and acute on chronic systolic heart failure. The patient was tearful because he had a difficult night last night. He states he got no sleep. He states that his legs kept Jumping all night. He describes a burning sensation. According to him he has a diagnosis of restless leg syndrome but has never been treated for by the diagnosing physician. He was told to take Tylenol for any discomfort. Physical Exam Vital Signs: Temp Pulse Resp BP Pulse Ox 98.2 F 58 L 18 112/45 L 95 03/16/17 10:46 03/16/17 10:46 03/16/17 10:46 03/16/17 10:46 03/16/17 10:46 Intake & Output 03/15/17 03/16/17 03/17/17 06:59 06:59 06:59 Intake Total 1669 731 Output Total 5792 7835 Balance -706 -4955 Weight 83.4 kg 81.8 kg GENERAL: This is a well-developed well-nourished appearing white male resting in bed currently in no acute distress. He is upset and tearful. HEART: Regular rate and rhythm. 2/6 systolic ejection murmur. No, rubs or gallops. LUNGS: Clear to auscultation bilaterally with equal rise and fall of the chest. ABDOMEN: Soft, nontender, nondistended with normoactive bowel sounds EXTREMETIES: No clubbing, cyanosis. trace edema. NEURO: Awake, alert and oriented 3. Cranial nerves II through XII. Results Laboratory Results: 03/15/17 05:01 03/15/17 05:01 03/13/17 05:30 NT-Pro-B Natriuret Pep [id number] H Impressions: Chest X-Ray 03/13/17 08:00 IMPRESSION: Cardiomegaly. No acute consolidations are identified. Assessment & Plan - Diagnosis (1) Acute respiratory failure with hypoxemia Plan: Secondary to underlying heart failure and ESRD and COPD. the patient has made significant improvement since admission and dialysis. Continue oxygen. Wean as needed. Continue As needed albuterol Atrovent nebulizers. (2) Acute on chronic systolic heart failure Is this a current diagnosis for this admission?: YesPlan: The patient is acutely in heart failure. continue with Lasix 60 mg IV twice daily. Monitor renal function. The patient has had an acute decompensation. Cardiology is following. continue digoxin and carvedilol, statin as well as isosorbide. (3) Acute kidney injury superimposed on chronic kidney disease Plan: This has progressed to ESRD with need of HD secondary to cardiorenal syndrome. the patient tolerated dialysis well yesterday. He has a temporary catheter in place and will need a permcath placed once INR is acceptable to surgery service. DC planning making arrangements for outpatient dialysis. And hopefully SNF placement in [place]. (4) Atrial fibrillation Plan: Warfarin on hold for temp catheter placement. I remains on hold for placement of permacath. (5) Hypertension Qualifiers: Hypertension type: essential hypertension Qualified Code(s): I10 - Essential (primary) hypertension Is this a current diagnosis for this admission?: YesPlan: Continue carvedilol, Isosorbide mononitrate (6) COPD (chronic obstructive pulmonary disease) Plan: The patient is not in acute exacerbation. I do not see that he is on any outpatient inhalers. He is stable at the moment. (7) RLS (restless legs syndrome) Is this a current diagnosis for this admission?: YesPlan: The patient is not currently on any medications to control RLS. I will add Requip to his medication regimen.
[2017-03-16] MEDS: FOLIC ACID/VITAMIN B COMP W-C CAPSULE PO SCH (18:17)
[2017-03-16] MEDS: GABAPENTIN 300 MG CAPSULE PO SCH (20:13)
[2017-03-16] MEDS: ROPINIROLE HCL 0.25 MG TABLET PO SCH (22:26)
[2017-03-16] MEDS: TAMSULOSIN HCL 0.4 MG CAP.SR.24H PO SCH (22:26)
[2017-03-16] MEDS: LATANOPROST 0.005% OPH SOLN 2.5 ML OU SCH (22:27)
[2017-03-17] MEDS: HYDRALAZINE HCL 50 MG TABLET PO SCH ×3 (06:54→21:10)
[2017-03-17] MEDS: ISOSORBIDE MONONITRATE 20 MG TABLET PO SCH ×3 (06:54→21:26)
[2017-03-17] MEDS: CALCIUM ACETATE 667 MG CAPSULE PO SCH ×3 (08:24→18:03)
[2017-03-17] MEDS: DIGOXIN 0.125 MG TABLET PO SCH (10:02)
[2017-03-17] MEDS: AMIODARONE HCL 200 MG TABLET PO SCH (10:05)
[2017-03-17] MEDS: CARVEDILOL 12.5 MG TABLET PO SCH ×2 (12:44→21:26)
[2017-03-17] MEDS: LISINOPRIL 5 MG TABLET PO SCH ×2 (12:45→21:10)
[2017-03-17] MEDS: FUROSEMIDE INJ/PF 100 MG/10 ML SDV IV SCH ×2 (12:49→21:27)
--- NOTE | 2017-03-17 13:29 | PDOC PROGRESS REPORT ---
Subjective Progress Note for:: 03/17/17 Subjective:: This is a follow-up visit for end-stage renal disease and acute on chronic systolic heart failure. The patient feels much better this morning. He states that his legs feel better after having the Requip last night. He has no chest pain or shortness of breath. Physical Exam Vital Signs: Temp Pulse Resp BP Pulse Ox 97.8 F 60 18 98/39 L 100 03/17/17 07:49 03/17/17 07:49 03/17/17 07:49 03/17/17 07:49 03/17/17 07:49 Intake & Output 03/16/17 03/17/17 03/18/17 06:59 06:59 06:59 Intake Total 731 558 Output Total 3175 350 Balance -2444 208 Weight 81.8 kg 82.5 kg GENERAL: This is a well-developed well-nourished appearing white male resting in bed currently in no acute distress. HEART: Regular rate and rhythm. 2/6 systolic ejection murmur. No, rubs or gallops. LUNGS: Clear to auscultation bilaterally with equal rise and fall of the chest. ABDOMEN: Soft, nontender, nondistended with normoactive bowel sounds EXTREMETIES: No clubbing, cyanosis. trace edema. NEURO: Awake, alert and oriented 3. Cranial nerves II through XII. Results Laboratory Results: 03/15/17 05:01 03/15/17 05:01 03/13/17 05:30 NT-Pro-B Natriuret Pep [id number] H Impressions: Chest X-Ray 03/13/17 08:00 IMPRESSION: Cardiomegaly. No acute consolidations are identified. Assessment & Plan - Diagnosis (1) Acute respiratory failure with hypoxemia Plan: Secondary to underlying heart failure and ESRD and COPD. the patient has made significant improvement since admission and dialysis. Continue oxygen. Wean as needed. Continue As needed albuterol Atrovent nebulizers. (2) Acute on chronic systolic heart failure Is this a current diagnosis for this admission?: YesPlan: The patient is acutely in heart failure. continue with Lasix 60 mg IV twice daily. Monitor renal function. The patient has had an acute decompensation. Cardiology is following. continue digoxin and carvedilol, statin as well as isosorbide. (3) Acute kidney injury superimposed on chronic kidney disease Plan: This has progressed to ESRD with need of HD secondary to cardiorenal syndrome. the patient tolerated dialysis well yesterday. He has a temporary catheter in place and will need a permcath placed once INR is acceptable to surgery service. DC planning making arrangements for outpatient dialysis. And hopefully SNF placement in [place]. (4) Atrial fibrillation Plan: Warfarin on hold for temp catheter placement. I remains on hold for placement of permacath. (5) Hypertension Qualifiers: Hypertension type: essential hypertension Qualified Code(s): I10 - Essential (primary) hypertension Is this a current diagnosis for this admission?: YesPlan: Continue carvedilol, Isosorbide mononitrate (6) COPD (chronic obstructive pulmonary disease) Plan: The patient is not in acute exacerbation. I do not see that he is on any outpatient inhalers. He is stable at the moment. (7) RLS (restless legs syndrome) Is this a current diagnosis for this admission?: YesPlan: Continue Requip
[2017-03-17] MEDS: FOLIC ACID/VITAMIN B COMP W-C CAPSULE PO SCH (18:03)
[2017-03-17] MEDS: TAMSULOSIN HCL 0.4 MG CAP.SR.24H PO SCH (21:26)
[2017-03-17] MEDS: ROPINIROLE HCL 0.25 MG TABLET PO SCH (21:26)
[2017-03-17] MEDS: GABAPENTIN 300 MG CAPSULE PO SCH (21:26)
[2017-03-17] MEDS: LATANOPROST 0.005% OPH SOLN 2.5 ML OU SCH (21:26)
[2017-03-18] MEDS ORDERED: HEPARIN SOD (PORCINE) 1,000 UNIT/ML 10 ML VIAL IV PRN (05:00)
[2017-03-18] MEDS ORDERED: IRON SUCROSE COMPLEX INJ/PF 100 MG/5 ML SDV IV PRN (05:00)
[2017-03-18] MEDS ORDERED: EPOETIN ALFA INJ 20000 UNIT/1 ML VIAL (RENAL) IV PRN (05:00)
[2017-03-18] MEDS ORDERED: NORMAL SALINE 1000 ML 1,000 ML IV PRN (05:00)
[2017-03-18] MEDS: HYDRALAZINE HCL 50 MG TABLET PO SCH ×3 (05:19→22:19)
[2017-03-18] MEDS: ISOSORBIDE MONONITRATE 20 MG TABLET PO SCH ×3 (05:19→22:18)
[2017-03-18 06:26] LABS: ABSOLUTE BASOPHILS # (AUTO) 0.1 10^3/uL (0.0-0.2); ABSOLUTE EOSINOPHILS # (AUTO) 0.5 10^3/uL (0.0-0.6); ABSOLUTE LYMPHOCYTES (AUTO) 0.7 10^3/uL (0.5-4.7); ABSOLUTE MONOCYTES (AUTO) 0.9 10^3/uL (0.1-1.4); ABSOLUTE NEUT (AUTO) 5.6 10^3/uL (1.7-8.2); EOSINOPHILS % (AUTO) 6.3 % (0-6); HEMATOCRIT 27.7 % (37.9-51.0); HEMOGLOBIN 9.3 g/dL (13.5-17.0); HGB HCT DIFFERENCE 0.2; MEAN CORPUSCULAR HEMOGLOBIN 31.8 pg (27.0-33.4); MEAN CORPUSCULAR HGB CONC 33.7 g/dL (32.0-36.0); MEAN CORPUSCULAR VOLUME 94 fl (80-97); MONOCYTES % (AUTO) 11.7 % (3-13); RED BLOOD COUNT 2.94 10^6/uL (4.35-5.55); RED CELL DISTRIBUTION WIDTH 16.9 % (11.5-14.0); WHITE BLOOD COUNT 7.8 10^3/uL (4.0-10.5)
[2017-03-18 06:34] LABS: PROTHROMBIN TIME 16.5 SEC (11.4-15.4)
[2017-03-18 06:43] LABS: ANION GAP 15 (5-19); BLOOD UREA NITROGEN 89 mg/dL (7-20); CARBON DIOXIDE 26 mmol/L (22-30); CHLORIDE 93 mmol/L (98-107); CREATININE RESULT 7.12 mg/dL (0.52-1.25); GLUCOSE 86 mg/dL (75-110); POTASSIUM 4.7 mmol/L (3.6-5.0); SODIUM 134.1 mmol/L (137-145)
[2017-03-18] MEDS ORDERED: KETAMINE HCL INJ 500 MG/10 ML VIAL ONE (07:18)
[2017-03-18] MEDS ORDERED: MIDAZOLAM 2 MG/2 ML INJ ONE (07:18)
[2017-03-18] MEDS ORDERED: PROPOFOL INJ 200 MG/20 ML VIAL IV ONE (07:19)
[2017-03-18] MEDS ORDERED: BACITRACIN INJ 50,000 UNIT VIAL ONE (07:26)
[2017-03-18] MEDS ORDERED: LIDOCAINE 0.5% INJ-PF (5 MG/ML) 50 ML SDV ONE (07:26)
[2017-03-18] MEDS ORDERED: BUPIVACAINE HCL 0.25 % INJ/PF (2.5 MG/1 ML) 30 ML VIAL ONE (07:26)
[2017-03-18] MEDS ORDERED: CEFAZOLIN INJ 1 GM VIAL ONE (07:49)
[2017-03-18] MEDS ORDERED: MEPERIDINE HCL/PF INJ 25 MG/1 ML DISP.SYRIN IV PRN (08:23)
[2017-03-18] MEDS ORDERED: DIPHENHYDRAMINE HCL 50 MG/ML VIAL IV PRN (08:23)
[2017-03-18] MEDS ORDERED: FENTANYL CITRATE INJ/PF 100 MCG/2 ML AMPUL IV PRN ×3 (08:23)
[2017-03-18] MEDS ORDERED: MORPHINE SULFATE 10 MG/ML INJ IV PRN (08:23)
[2017-03-18] MEDS ORDERED: OXYCODONE-ACETAMINOPHEN 5-325 MG TABLET PO PRN ×2 (08:23)
[2017-03-18] MEDS ORDERED: PROMETHAZINE HCL INJ 25 MG/1 ML VIAL IV PRN ×2 (08:23)
--- NOTE | 2017-03-18 10:13 | Operative Report ---
Operative Report DATE OF SURGERY: 03/13/17 PREOPERATIVE DIAGNOSIS: ESRD POSTOPERATIVE DIAGNOSIS: ESRD OPERATION: 1. Ultrasound evaluation of the right internal jugular vein. 2. Insertion of Perm internal jugular catheter via real-time access in the right internal jugular vein. 3. Angiogram and interpretation. SURGEON: ROSIBEL LANDEROS DIVISION OPERATIONS SPECIALIST: None ANESTHESIA: LMAC TISSUE REMOVED OR ALTERED: Not applicable. COMPLICATIONS: None ESTIMATED BLOOD LOSS: 5 mL. INTRAOPERATIVE FINDINGS: Satisfactory and safe axis in the right internal jugular vein. Easy egress of blood and ingress of heparinized solution through all 3 ports. Satisfactory flow of contrast into the right atrium, ventricle and pulmonary outflow tract. This patient with a dual-chamber pacemaker in place the PermCath tip is in the upper atrial pool. The atrial pool is quite large in this patient. PROCEDURE: After obtaining informed consent, the patient was taken to the operating room and positioned supine. The [right neck] and chest were prepared with chlorhexidine and draped out with sterile linen. After the " universal timeout ", in which it was verified that the patient continued to receive antibiotic, the procedure commenced. A steriley sheathed ultrasound probe was used to evaluate the [right internal jugular] vein. Local anesthesia was infiltrated adjacent to the probe. Access into the [right internal jugular] vein was obtained using a micropuncture needle, followed by micropuncture wire and then a micropuncture catheter. This was followed by introduction of a 0.035 guidewire the tip of which was placed down into the inferior vena cava . A 23 cm long [PermCath] was now positioned over the chest and an exit site marked and locally anesthetized ,the catheter was placed between the 2 incisions. Proximally, the catheter was now positioned using a peel-away sheath, after dilation. Easy ingress of heparinized solution and egress of blood obtained through both ports. A completion angiogram was done by injecting contrast. The findings were as dictated. The neck incision was now closed using interrupted 3-0 PDS to the subcutaneous tissues, the catheter was anchored at the exit site using 3-0 PDS. A Biopatch device was now placed adjacent to the catheter. Dressings were applied and the procedure concluded. Exposure time: [0. 5 minutes]. Exposure: [9.14 mcg] per centimeters squared. Contrast amount: [5 mL] of [id number] low osmolality. Copies of the dictated operative report for Dr. Rosibel Gardiner MD.concluded. Copies of the dictated operative report for Dr. Rosibel Gardiner MD.
--- NOTE | 2017-03-18 10:38 | PDOC PROGRESS REPORT ---
Subjective Progress Note for:: 03/17/17 Subjective:: Patient claims he slept well last night. He was placed on Neurontin 300 mg at bedtime. He is denying any chest pain or shortness of breath. Patient seems to be doing better with gradual improvement. Pt is denying any chest arm or neck discomfort. Patient denying any PND, orthopnea. Patient denied any sustained palpitations, dizziness, syncope, near syncope. Patient denying any fever chills. Patient denying any other significant discomfort. Patient noted to have predominantly AV paced rhythm. No sustained tachycardia or bradycardia arrhythmias noted. Review of systems: Rest review of systems negative. Medications: Medications have been reviewed. Physical Exam Vital Signs: Temp Pulse Resp BP Pulse Ox 97.9 F 59 L 20 117/51 L 100 03/18/17 03:26 03/18/17 03:26 03/18/17 03:26 03/18/17 03:26 03/18/17 03:26 Intake & Output 03/17/17 03/18/17 03/19/17 06:59 06:59 06:59 Intake Total 558 939 10 Output Total 350 425 0 Balance 208 514 10 Weight 82.5 kg 83.6 kg Exam: GENERAL: well-nourished and in no acute distress. Alert and oriented x3 HEAD: Atraumatic, normocephalic. EYES: Pupils equal round and reactive to light, extraocular movements intact, sclera anicteric, conjunctiva are normal. ENT: TMs normal, nares patent, oropharynx clear without exudates. Moist mucous membranes. No oral ulcerations or bleeding gums noted NECK: supple without lymphadenopathy. Trachea is central. No cervical or axillary lymphadenopathy noted. Carotids are 2+, JVD WNL LUNGS: Respiration seems nonlabored, no significant accessory muscle action noted. Breath sounds clear to auscultation bilaterally and equal noted. No wheezes rales or rhonchi noted. No significant dullness noted on percussion. CHEST: Palpation of the chest wall shows no significant chest wall tenderness. No other significant abnormalities noted. Pacemaker/defibrillator noted on the left side. 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 ABDOMEN: Soft, no significant tenderness appreciated, normoactive bowel sounds. No guarding, no rebound. No rigidity noted . No masses appreciated. EXTREMITIES: Pedal pulses are 1-2+, no calf tenderness noted. No clubbing or cyanosis.trace to 1+ pedal edema noted. Patient has a dialysis catheter in the right groin area. NEUROLOGICAL: Focused neurological exam showed no significant neurologic deficit. Normal speech, no focal weakness appreciated. PSYCH: Normal mood, normal affect. Judgment and insight within normal limits. SKIN: No significant ecchymosis, rash, ulcerations or signs of pruritus noted. MUSCULOSKELETAL EXAM: No significant joint swelling noted. Results Laboratory Results: 03/18/17 05:26 03/18/17 05:26 03/18/17 03/18/17 05:26 05:26 WBC 7.8 RBC 2.94 L Hgb 9.3 L Hct 27.7 L MCV 94 MCH 31.8 MCHC 33.7 RDW 16.9 H Plt Count 173 Seg Neutrophils % 72.0 Lymphocytes % 9.0 L Monocytes % 11.7 Eosinophils % 6.3 H Basophils % 1.0 Absolute Neutrophils 5.6 Absolute Lymphocytes 0.7 Absolute Monocytes 0.9 Absolute Eosinophils 0.5 Absolute Basophils 0.1 Sodium 134.1 L Potassium 4.7 Chloride 93 L Carbon Dioxide 26 Anion Gap 15 BUN 89 H Creatinine 7.12 H Est GFR ( Amer) 9 L Est GFR (Non-Af Amer) 7 L Glucose 86 Calcium 9.0 03/13/17 03/18/17 05:30 05:26 NT-Pro-B Natriuret Pep 47585 H 25628 H EKG Comments: Telemetry strips reviewed. It shows AV paced rhythm. No sustained tachycardia or bradycardia arrhythmias were noted. Impressions: Chest X-Ray 03/13/17 08:00 IMPRESSION: Cardiomegaly. No acute consolidations are identified. Assessment & Plan - Diagnosis (1) Acute on chronic systolic heart failure Is this a current diagnosis for this admission?: Yes (2) Cardiac defibrillator in situ Is this a current diagnosis for this admission?: Yes (3) Chronic kidney disease Qualifiers: Chronic kidney disease stage: stage 5, not on chronic dialysis Qualified Code(s): N18.5 - Chronic kidney disease, stage 5 Is this a current diagnosis for this admission?: Yes (4) Hypertension Qualifiers: Hypertension type: essential hypertension Qualified Code(s): I10 - Essential (primary) hypertension Is this a current diagnosis for this admission?: Yes (5) Non-ischemic cardiomyopathy Is this a current diagnosis for this admission?: Yes (6) RLS (restless legs syndrome) Is this a current diagnosis for this admission?: Yes - Notes Notes: Acute on chronic systolic heart failure: Patient has severely depressed LVEF. Patient does have a functioning defibrillator, biventricular in situ. Medical management is being optimized. Patient's medication reviewed. Patient on hydralazine nitrate combination, carvedilol therapy. Will gradually increase DAVID inhibitor therapy. Cardiac defibrillator in situ: Seems functioning normally. Patient chest x-ray showed additional LV lead in coronary sinus addition to right atrial and left right ventricular lead. Telemetry strip shows normal functioning. Chronic kidney disease: Stage V or even worse. Nephrology is seen. Stable on dialysis treatment. Tolerating well. Cardiomyopathy: Believed to be non-ischemic. We will try to obtain previous records. Medical regimen is being optimized. Hypertension: Reasonably well controlled. Blood pressure goal in this patient is 135/85 or less. This was discussed with the patient. Currently blood pressure under reasonable control. Restless leg syndrome: Patient claims to have this diagnosis. Continue on Neurontin 300 mg p.o. nightly, increase as needed. - Time Time with patient: 15-25 minutes - CODE STATUS was discussed, patient remains full code. Surrogate decision-maker unchanged. Multiple medical problems were addressed. More than 50% of the time spent coordinating care, discussing management plans with involved caregivers. Management plans discussed with involved personnels. Medical decision making was of moderate to high complexity , patient's has multiple comorbidities.
--- NOTE | 2017-03-18 10:43 | RADIOLOGY REPORT (SQ) ---
EXAM DESCRIPTION: NO CHG FLUORO; FLUORO/CV PLACEMENT COMPLETED DATE/TIME: 03/18/2017 9:14 am REASON FOR STUDY: [facility] RT SIDE ASSISTED WITH FLUORO IN OR COMPARISON: None. FLUOROSCOPY TIME: 0.5 minutes. 3 images saved to PACS. TECHNIQUE: Intra-operative images acquired during surgical procedure to evaluate progress. NUMBER OF IMAGES: 3 images LIMITATIONS: None. FINDINGS: Images of the chest acquired during catheter placement. IMPRESSION: IMAGE(S) OBTAINED DURING PROCEDURE. COMMENT: Quality ID [id number]: Final reports for procedures using fluoroscopy that document radiation exp osure indices, or exposure time and number of fluorographic images (if radiation exposure indices are not available) Please consult full operative report of the attending physician for description of the procedure. TECHNICAL DOCUMENTATION: JOB ID: [id number] [employer]- All Rights Reserved
--- NOTE | 2017-03-18 10:43 | RADIOLOGY REPORT (SQ) ---
EXAM DESCRIPTION: NO CHG FLUORO; FLUORO/CV PLACEMENT COMPLETED DATE/TIME: 03/18/2017 9:14 am REASON FOR STUDY: [facility] RT SIDE ASSISTED WITH FLUORO IN OR COMPARISON: None. FLUOROSCOPY TIME: 0.5 minutes. 3 images saved to PACS. TECHNIQUE: Intra-operative images acquired during surgical procedure to evaluate progress. NUMBER OF IMAGES: 3 images LIMITATIONS: None. FINDINGS: Images of the chest acquired during catheter placement. IMPRESSION: IMAGE(S) OBTAINED DURING PROCEDURE. COMMENT: Quality ID 145: Final reports for procedures using fluoroscopy that document radiation exp osure indices, or exposure time and number of fluorographic images (if radiation exposure indices are not available) Please consult full operative report of the attending physician for description of the procedure. TECHNICAL DOCUMENTATION: JOB ID: [id number] [employer]- All Rights Reserved
--- NOTE | 2017-03-18 10:45 | PDOC PROGRESS REPORT ---
Subjective Progress Note for:: 03/18/17 Subjective:: Patient is denying any significant complaints. He had slept well for last 2 nights being placed on Neurontin 300 mg at bedtime. He is denying any chest pain or shortness of breath. Patient seems to be doing better with gradual improvement. Pt is denying any chest arm or neck discomfort. Patient denying any PND, orthopnea. Patient denied any sustained palpitations, dizziness, syncope, near syncope. Patient denying any fever chills. Patient denying any other significant discomfort. Patient noted to have predominantly AV paced rhythm. No sustained tachycardia or bradycardia arrhythmias noted. Review of systems: Rest review of systems negative. Medications: Medications have been reviewed. Physical Exam Vital Signs: Temp Pulse Resp BP Pulse Ox 97.9 F 59 L 20 117/51 L 100 03/18/17 03:26 03/18/17 03:26 03/18/17 03:26 03/18/17 03:26 03/18/17 03:26 Intake & Output 03/17/17 03/18/17 03/19/17 06:59 06:59 06:59 Intake Total 558 939 10 Output Total 350 425 0 Balance 208 514 10 Weight 82.5 kg 83.6 kg Exam: GENERAL: well-nourished and in no acute distress. Alert and oriented x3 HEAD: Atraumatic, normocephalic. EYES: Pupils equal round and reactive to light, extraocular movements intact, sclera anicteric, conjunctiva are normal. ENT: TMs normal, nares patent, oropharynx clear without exudates. Moist mucous membranes. No oral ulcerations or bleeding gums noted NECK: supple without lymphadenopathy. Trachea is central. No cervical or axillary lymphadenopathy noted. Carotids are 2+, JVD WNL LUNGS: Respiration seems nonlabored, no significant accessory muscle action noted. Breath sounds clear to auscultation bilaterally and equal noted. No wheezes rales or rhonchi noted. No significant dullness noted on percussion. CHEST: Palpation of the chest wall shows no significant chest wall tenderness. No other significant abnormalities noted. Right-sided dialysis catheter noted. On the left side patient has defibrillator pacemaker. 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 ABDOMEN: Soft, no significant tenderness appreciated, normoactive bowel sounds. No guarding, no rebound. No rigidity noted . No masses appreciated. EXTREMITIES: Pedal pulses are 1-2+, no calf tenderness noted. No clubbing or cyanosis.trace to 1+ pedal edema noted NEUROLOGICAL: Focused neurological exam showed no significant neurologic deficit. Normal speech, no focal weakness appreciated. PSYCH: Normal mood, normal affect. Judgment and insight within normal limits. SKIN: No significant ecchymosis, rash, ulcerations or signs of pruritus noted. MUSCULOSKELETAL EXAM: No significant joint swelling noted. Results Laboratory Results: 03/18/17 05:26 03/18/17 05:26 03/18/17 03/18/17 05:26 05:26 WBC 7.8 RBC 2.94 L Hgb 9.3 L Hct 27.7 L MCV 94 MCH 31.8 MCHC 33.7 RDW 16.9 H Plt Count 173 Seg Neutrophils % 72.0 Lymphocytes % 9.0 L Monocytes % 11.7 Eosinophils % 6.3 H Basophils % 1.0 Absolute Neutrophils 5.6 Absolute Lymphocytes 0.7 Absolute Monocytes 0.9 Absolute Eosinophils 0.5 Absolute Basophils 0.1 Sodium 134.1 L Potassium 4.7 Chloride 93 L Carbon Dioxide 26 Anion Gap 15 BUN 89 H Creatinine 7.12 H Est GFR ( Amer) 9 L Est GFR (Non-Af Amer) 7 L Glucose 86 Calcium 9.0 03/13/17 03/18/17 05:30 05:26 NT-Pro-B Natriuret Pep 98030 H 33078 H Impressions: Chest X-Ray 03/13/17 08:00 IMPRESSION: Cardiomegaly. No acute consolidations are identified. Assessment & Plan - Diagnosis (1) Acute on chronic systolic heart failure Is this a current diagnosis for this admission?: Yes (2) Cardiac defibrillator in situ Is this a current diagnosis for this admission?: Yes (3) Chronic kidney disease Qualifiers: Chronic kidney disease stage: stage 5, not on chronic dialysis Qualified Code(s): N18.5 - Chronic kidney disease, stage 5 Is this a current diagnosis for this admission?: Yes (4) Hypertension Qualifiers: Hypertension type: essential hypertension Qualified Code(s): I10 - Essential (primary) hypertension Is this a current diagnosis for this admission?: Yes (5) Non-ischemic cardiomyopathy Is this a current diagnosis for this admission?: Yes (6) RLS (restless legs syndrome) Is this a current diagnosis for this admission?: Yes - Notes Notes: Stopped and digoxin since patient has end-stage renal disease now on dialysis along with amiodarone therapy therefore high potential of going into toxicity. Increased lisinopril to 5 mg p.o. twice daily. Switched from IV Lasix to p.o. Lasix at 40 mg p.o. twice daily. Patient seems compensated. Acute on chronic systolic heart failure: Patient has severely depressed LVEF. Patient does have a functioning defibrillator, biventricular in situ. Medical management has been optimized. Continue fluid removal on dialysis as needed. Patient on hydralazine nitrate combination, carvedilol therapy. Will start patient on angiotensin receptor bharati/DAVID inhibitor therapy. Increase lisinopril to 5 mg p.o. twice daily. Switched patient to p.o. Lasix. Cardiac defibrillator in situ: Seems functioning normally. Patient chest x-ray showed additional LV lead in coronary sinus addition to right atrial and left right ventricular lead. Telemetry strip shows normal functioning. Chronic kidney disease: Stage V or even worse. Nephrology is seen. Stable on dialysis treatment. Tolerating well. Cardiomyopathy: Believed to be non-ischemic. We will try to obtain previous records. Medical regimen is being optimized. Hypertension: Reasonably well controlled. Blood pressure goal in this patient is 135/85 or less. This was discussed with the patient. Currently blood pressure under reasonable control. Restless leg syndrome: Patient claims to have this diagnosis. Will start patient on Neurontin 300 mg p.o. nightly. Patient sleeping much better on Neurontin. - Time Time with patient: Greater than 35 minutes - CODE STATUS was discussed, patient remains full code. Surrogate decision-maker unchanged. Multiple medical problems were addressed. More than 50% of the time spent coordinating care, discussing management plans with involved caregivers. Management plans discussed with involved personnels. Medical decision making was of moderate to high complexity, patient's has multiple comorbidities. Medications reviewed and adjusted accordingly: Yes
[2017-03-18] MEDS: CALCIUM ACETATE 667 MG CAPSULE PO SCH ×3 (10:59→18:33)
[2017-03-18] MEDS: CARVEDILOL 12.5 MG TABLET PO SCH ×2 (11:02→22:23)
[2017-03-18] MEDS: AMIODARONE HCL 200 MG TABLET PO SCH (11:02)
[2017-03-18] MEDS: LISINOPRIL 5 MG TABLET PO SCH (11:02)
[2017-03-18] MEDS ORDERED: EPOETIN ALFA 10,000 UNIT in SYRINGE, DISPOSABLE, 1 EACH IV PRN (15:53)
[2017-03-18] MEDS: HEPARIN SOD (PORCINE) 1,000 UNIT/ML 10 ML VIAL IV PRN (16:31)
--- NOTE | 2017-03-18 17:43 | PDOC PROGRESS REPORT ---
Subjective Progress Note for:: 03/18/17 Subjective:: This is a follow-up visit for end-stage renal disease and acute on chronic systolic heart failure. The patient was admitted 7 days ago. He came in as a transfer from [facility]. He was initially admitted there for volume overload heart failure. There he was evaluated by license distributor and collar trimmer and he was felt to need to transition to dialysis. Therefore he was transferred referred here for further management. Since the patient has been here he is been diuresed quite aggressively in addition to this he initially had a temporary catheter placed in the femoral region. This was done because his INR was still therapeutic. The patient underwent PermCath placement today and with discontinuation of the temporary catheter. His warfarin will need to be restarted tomorrow. He has had 3 sessions of hemodialysis as tolerated this well. While here he is complained of restless legs and was started on Requip which has helped tremendously. Cardiology is following as well as nephrology. At this point the patient is doing quite well and we can start planning to transition him to [place]. The patient has been working with physical therapy. He is from [place] and discharge planning is trying to get him placed in [place]. Arrangements have already been made with [facility] for outpatient dialysis in [place]. The patient feels much better this morning. He states that his legs feel better after having the Requip again last night. He has no chest pain or shortness of breath. Physical Exam Vital Signs: Temp Pulse Resp BP Pulse Ox 98.3 F 67 20 126/53 H 99 03/18/17 09:32 03/18/17 14:00 03/18/17 09:32 03/18/17 09:32 03/18/17 09:32 Intake & Output 03/17/17 03/18/17 03/19/17 06:59 06:59 06:59 Intake Total 558 939 360 Output Total 350 425 2 Balance 208 514 358 Weight 82.5 kg 83.6 kg GENERAL: This is a well-developed well-nourished appearing white male resting in his recliner receiving dialysis in no acute distress. HEART: Regular rate and rhythm. 2/6 systolic ejection murmur. No, rubs or gallops. LUNGS: Clear to auscultation bilaterally with equal rise and fall of the chest. ABDOMEN: Soft, nontender, nondistended with normoactive bowel sounds EXTREMETIES: No clubbing, cyanosis. trace edema. NEURO: Awake, alert and oriented 3. Cranial nerves II through XII. Results Laboratory Results: 03/18/17 05:26 03/18/17 05:26 03/18/17 03/18/17 05:26 05:26 WBC 7.8 RBC 2.94 L Hgb 9.3 L Hct 27.7 L MCV 94 MCH 31.8 MCHC 33.7 RDW 16.9 H Plt Count 173 Seg Neutrophils % 72.0 Lymphocytes % 9.0 L Monocytes % 11.7 Eosinophils % 6.3 H Basophils % 1.0 Absolute Neutrophils 5.6 Absolute Lymphocytes 0.7 Absolute Monocytes 0.9 Absolute Eosinophils 0.5 Absolute Basophils 0.1 Sodium 134.1 L Potassium 4.7 Chloride 93 L Carbon Dioxide 26 Anion Gap 15 BUN 89 H Creatinine 7.12 H Est GFR ( Amer) 9 L Est GFR (Non-Af Amer) 7 L Glucose 86 Calcium 9.0 03/13/17 03/18/17 05:30 05:26 NT-Pro-B Natriuret Pep 57043 H 83791 H Impressions: Chest X-Ray 03/13/17 08:00 IMPRESSION: Cardiomegaly. No acute consolidations are identified. Fluoroscopy 03/18/17 00:00 IMPRESSION: IMAGE(S) OBTAINED DURING PROCEDURE. Guidance Fluoroscopy 03/18/17 00:00 IMPRESSION: IMAGE(S) OBTAINED DURING PROCEDURE. Assessment & Plan - Diagnosis (1) Acute respiratory failure with hypoxemia Plan: Secondary to underlying heart failure and ESRD and COPD. the patient has made significant improvement since admission and initiation of dialysis. Continue oxygen. Wean as needed. Continue As needed albuterol Atrovent nebulizers. (2) Acute on chronic systolic heart failure Is this a current diagnosis for this admission?: Yes (3) Acute kidney injury superimposed on chronic kidney disease Plan: This has progressed to ESRD with need of HD secondary to cardiorenal syndrome. the patient tolerated dialysis well. He is had his temporary catheter discontinued and PermCath is in place in the right subclavian. The patient has had some episodes of hypotension, therefore I am going to discontinue his Lasix since he is actively receiving dialysis. We will monitor him and if necessary restarted at a lower dose later. DC planning making arrangements for outpatient dialysis. And hopefully SNF placement in [place]. (4) Atrial fibrillation Plan: Warfarin on hold for PermCath placement placement. He will need to resume tomorrow. (5) Hypertension Qualifiers: Hypertension type: essential hypertension Qualified Code(s): I10 - Essential (primary) hypertension Is this a current diagnosis for this admission?: YesPlan: Continue carvedilol, Isosorbide mononitrate (6) COPD (chronic obstructive pulmonary disease) Plan: The patient is not in acute exacerbation. I do not see that he is on any outpatient inhalers. He is stable at the moment. (7) RLS (restless legs syndrome) Is this a current diagnosis for this admission?: YesPlan: Continue Requip - Time Time Spent with patient: 15-24 minutes Anticipated discharge: SNF Within: within 48 hours - Inpatient Certification Medical Necessity: Need Close Monitoring Due to Risk of Patient Decompensation
[2017-03-18] MEDS ORDERED: FUROSEMIDE 40 MG TABLET PO SCH (18:00)
[2017-03-18] MEDS: FOLIC ACID/VITAMIN B COMP W-C CAPSULE PO SCH (18:33)
--- NOTE | 2017-03-18 21:15 | PDOC PROGRESS REPORT ---
Subjective Progress Note for:: 03/18/17 Subjective:: I saw the patient during dialysis at around noon time at around 12:45 PM. Patient looks a lot better. He said he is sleeping better now that he started on Requip for his restless leg syndrome. He underwent PermCath placement this morning and it was uneventful. He said he is feeling fine and he feels more rested. He denies any shortness of breath nor chest pain no any other complaints. Physical Exam Vital Signs: Temp Pulse Resp BP Pulse Ox 97.5 F 67 16 127/51 H 99 03/18/17 11:37 03/18/17 14:00 03/18/17 11:37 03/18/17 11:37 03/18/17 09:32 Intake & Output 03/17/17 03/18/17 03/19/17 06:59 06:59 06:59 Intake Total 558 939 660 Output Total 058 248 2036 Balance 208 514 -492 Weight 82.5 kg 83.6 kg Vital signs during dialysis: Pressure 88/59, heart rate of 59, blood flow rate of about 300 mL/min, blood flow rate of 600 mL/min. Exam: General appearance: PRESENT: no acute distress, cooperative, well-developed, well-nourished Head exam: PRESENT: atraumatic, normocephalic Eye exam: PRESENT: conjunctiva pale, PERRLA. ABSENT: scleral icterus Neck exam: ABSENT: JVD Respiratory exam: PRESENT: Normal breath sounds. ABSENT: crackles, rales, rhonchi, unlabored, wheezes Cardiovascular exam: PRESENT: Regular rate rhythm -+S1, +S2. 2/6 systolic murmur ABSENT: diastolic murmur GI/Abdominal exam: PRESENT: normal bowel sounds, soft. ABSENT: guarding, mass, tenderness Extremities exam: ABSENT: No edema Neurological exam: PRESENT: alert, awake, oriented to person, place and time. Skin exam: PRESENT: dry, warm, Results Laboratory Results: 03/18/17 05:26 03/18/17 05:26 03/18/17 03/18/17 05:26 05:26 WBC 7.8 RBC 2.94 L Hgb 9.3 L Hct 27.7 L MCV 94 MCH 31.8 MCHC 33.7 RDW 16.9 H Plt Count 173 Seg Neutrophils % 72.0 Lymphocytes % 9.0 L Monocytes % 11.7 Eosinophils % 6.3 H Basophils % 1.0 Absolute Neutrophils 5.6 Absolute Lymphocytes 0.7 Absolute Monocytes 0.9 Absolute Eosinophils 0.5 Absolute Basophils 0.1 Sodium 134.1 L Potassium 4.7 Chloride 93 L Carbon Dioxide 26 Anion Gap 15 BUN 89 H Creatinine 7.12 H Est GFR ( Amer) 9 L Est GFR (Non-Af Amer) 7 L Glucose 86 Calcium 9.0 03/13/17 03/18/17 05:30 05:26 NT-Pro-B Natriuret Pep [id number] H [id number] H Impressions: Chest X-Ray 03/13/17 08:00 IMPRESSION: Cardiomegaly. No acute consolidations are identified. Fluoroscopy 03/18/17 00:00 IMPRESSION: IMAGE(S) OBTAINED DURING PROCEDURE. Guidance Fluoroscopy 03/18/17 00:00 IMPRESSION: IMAGE(S) OBTAINED DURING PROCEDURE. Assessment & Plan - Diagnosis (1) End stage renal disease on dialysis Is this a current diagnosis for this admission?: YesPlan: This is due to chronic cardiorenal syndrome. Patient's records, history and labs consistent with progressive deterioration of kidney function now with end- stage renal disease requiring hemodialysis treatment. At the at this stage the patient would benefit from initiation of chronic hemodialysis treatment to maintain volume and solute control. This will help hopefully prevent frequent exacerbations of congestive heart failure if we can control his volume through hemodialysis consistently. I had an extensive discussion with the patient regarding hemodialysis treatment versus peritoneal dialysis treatment. Due to his living condition and his age I think it is appropriate for him to do in-center hemodialysis treatment. Explained to patient how the procedure is done and the need for vascular access in the form of a catheter initially and later on AV fistula. Discussed the benefits as is stated above. Also discussed the risk for hemodialysis treatment including bleeding, infection, hemodynamic instability including . After several questions patient agreed to proceed. We did dialysis today for 3 hours, using the patient's newly placed PermCath, with 2 potassium bath, blood flow rate of 300 mL per minute, dialysate flow rate of 500 mL per minute, ultrafiltration 1-2 l, no heparin and Procrit with 10 ,000 units during dialysis intravenously. Patient was monitored toward and tolerated dialysis very well. information systems planner to also arrange outpatient dialysis treatment at [place]. (2) Cardiorenal syndrome with renal failure Is this a current diagnosis for this admission?: Yes (3) Anemia in chronic kidney disease (CKD) Is this a current diagnosis for this admission?: YesPlan: We will give Epogen and IV Venofer during dialysis treatment. (4) Iron deficiency anemia Is this a current diagnosis for this admission?: Yes (5) Hyperphosphatemia Is this a current diagnosis for this admission?: YesPlan: Start PhosLo 667 mg 2 capsules with meals. (6) Non-ischemic cardiomyopathy Is this a current diagnosis for this admission?: Yes (7) Acute on chronic systolic heart failure Is this a current diagnosis for this admission?: Yes (8) RLS (restless legs syndrome) Is this a current diagnosis for this admission?: Yes - Time Time with patient: 15-25 minutes
[2017-03-18] MEDS ORDERED: LISINOPRIL 5 MG TABLET PO SCH (22:00)
[2017-03-18] MEDS: TAMSULOSIN HCL 0.4 MG CAP.SR.24H PO SCH (22:20)
[2017-03-18] MEDS: ROPINIROLE HCL 0.25 MG TABLET PO SCH (22:20)
[2017-03-18] MEDS: GABAPENTIN 300 MG CAPSULE PO SCH (22:21)
[2017-03-18] MEDS: LATANOPROST 0.005% OPH SOLN 2.5 ML OU SCH (22:24)
[2017-03-19] MEDS: ISOSORBIDE MONONITRATE 20 MG TABLET PO SCH (05:22)
[2017-03-19] MEDS: HYDRALAZINE HCL 50 MG TABLET PO SCH (05:22)
[2017-03-19] MEDS: CALCIUM ACETATE 667 MG CAPSULE PO SCH ×3 (08:06→17:30)
[2017-03-19] MEDS ORDERED: CALCIUM CARBONATE 500 MG TAB.CHEW PO PRN (09:54)
[2017-03-19] MEDS ORDERED: ONDANSETRON HCL INJ/PF 4 MG/2 ML SDV IV PRN (09:54)
[2017-03-19] MEDS ORDERED: ISOSORBIDE MONONITRATE 60 MG TAB.ER.24H PO SCH (10:00)
[2017-03-19] MEDS: CARVEDILOL 12.5 MG TABLET PO SCH ×2 (10:19→21:13)
[2017-03-19] MEDS: AMIODARONE HCL 200 MG TABLET PO SCH (10:19)
[2017-03-19] MEDS: LISINOPRIL 5 MG TABLET PO SCH ×2 (10:19→21:15)
--- NOTE | 2017-03-19 10:44 | PDOC PROGRESS REPORT ---
Subjective Progress Note for:: 03/19/17 Subjective:: reason for visit: f/u volume overload with heart failure, ESRD starting HD this admit, hypoxia hosptial course: per other's notes - "This is a follow-up visit for end-stage renal disease and acute on chronic systolic heart failure. The patient was admitted 7 days ago. He came in as a transfer from [facility]. He was initially admitted there for volume overload heart failure. There he was evaluated by life insurance agent and thermodynamics engineer and he was felt to need to transition to dialysis. Therefore he was transferred referred here for further management. Since the patient has been here he is been diuresed quite aggressively in addition to this he initially had a temporary catheter placed in the femoral region. This was done because his INR was still therapeutic. The patient underwent PermCath placement today and with discontinuation of the temporary catheter. His warfarin will need to be restarted tomorrow. He has had 3 sessions of hemodialysis as tolerated this well. While here he is complained of restless legs and was started on Requip which has helped tremendously. Cardiology is following as well as nephrology. At this point the patient is doing quite well and we can start planning to transition him to [place]. The patient has been working with physical therapy. He is from [place] and discharge planning is trying to get him placed in [place]. Arrangements have already been made with [facility] for outpatient dialysis in [place]. The patient feels much better this morning. He states that his legs feel better after having the Requip again last night. He has no chest pain or shortness of breath." he successfully underwent his first dialysis session yesterday and is having some nausea this morning but overall feels better; still requiring supplemental O2. denies chest pain, wheezing, cough with phlegm, n/v/d. ROS: all systems reviewed, see above, remaining systems negative Physical Exam Vital Signs: Temp Pulse Resp BP Pulse Ox 97.4 F 47 L 12 98/43 L 100 03/19/17 08:06 03/19/17 08:06 03/19/17 08:06 03/19/17 08:06 03/19/17 08:06 Intake & Output 03/18/17 03/19/17 03/20/17 06:59 06:59 06:59 Intake Total 939 670 Output Total 425 1152 Balance 514 -482 Weight 83.6 kg 83.7 kg General appearance: PRESENT: hard of hearing, well-developed, well-nourished Head exam: PRESENT: atraumatic, normocephalic Eye exam: PRESENT: EOMI. ABSENT: scleral icterus Mouth exam: PRESENT: moist, neck supple Neck exam: PRESENT: full ROM. ABSENT: tracheal deviation Respiratory exam: PRESENT: crackles - bilat bases, unlabored. ABSENT: accessory muscle use, rhonchi, wheezes Cardiovascular exam: PRESENT: RRR, systolic murmur Pulses: PRESENT: normal radial pulses, normal dorsalis pedis pul GI/Abdominal exam: PRESENT: normal bowel sounds, soft. ABSENT: guarding, tenderness Extremities exam: PRESENT: pedal edema - trace at the ankles. ABSENT: calf tenderness Musculoskeletal exam: PRESENT: full ROM. ABSENT: tenderness Neurological exam: PRESENT: alert, awake, oriented to person, oriented to place , oriented to time Psychiatric exam: PRESENT: appropriate affect, normal mood Skin exam: PRESENT: dry, warm Results Laboratory Results: 03/18/17 05:26 03/18/17 05:26 03/13/17 03/18/17 05:30 05:26 NT-Pro-B Natriuret Pep [id number] H 47563 H Impressions: Chest X-Ray 03/13/17 08:00 IMPRESSION: Cardiomegaly. No acute consolidations are identified. Fluoroscopy 03/18/17 00:00 IMPRESSION: IMAGE(S) OBTAINED DURING PROCEDURE. Guidance Fluoroscopy 03/18/17 00:00 IMPRESSION: IMAGE(S) OBTAINED DURING PROCEDURE. Status: Image reviewed by me - agree with rads Assessment & Plan - Diagnosis (1) Cardiorenal syndrome with renal failure Is this a current diagnosis for this admission?: Yes (2) Acute on chronic systolic heart failure Is this a current diagnosis for this admission?: Yes (3) Acute respiratory failure with hypoxemia Is this a current diagnosis for this admission?: Yes (4) Anemia in chronic kidney disease (CKD) Qualifiers: Chronic kidney disease stage: on chronic dialysis Qualified Code(s) : N18.6 - End stage renal disease; D63.1 - Anemia in chronic kidney disease; Z99.2 - Dependence on renal dialysis Is this a current diagnosis for this admission?: Yes (5) Atrial fibrillation Qualifiers: Atrial fibrillation type: chronic Qualified Code(s): I48.2 - Chronic atrial fibrillation Is this a current diagnosis for this admission?: YesPlan: rate and rhythm controlled with amio (6) COPD (chronic obstructive pulmonary disease) Is this a current diagnosis for this admission?: No (7) Cardiac defibrillator in situ Is this a current diagnosis for this admission?: Yes (8) RLS (restless legs syndrome) Is this a current diagnosis for this admission?: Yes (9) Hypertension Qualifiers: Hypertension type: essential hypertension Qualified Code(s): I10 - Essential (primary) hypertension Is this a current diagnosis for this admission?: YesPlan: BPs running on low side after dialysis, will place holding parameters and monitor for response. - Time Time Spent with patient: 25-34 minutes - Plan Summary Plan Summary: pt stating he prefers to go home and his daughter is discussing hiring ACTUARIAL ASSISTANT friend to come into home with him for assistance vs [facility]; decision is still pending.
[2017-03-19] MEDS ORDERED: ISOSORBIDE MONONITRATE 30 MG TAB.ER.24H PO ONE (11:00)
--- NOTE | 2017-03-19 11:30 | PDOC PROGRESS REPORT ---
Subjective Progress Note for:: 03/19/17 Subjective:: Patient is denying any significant complaints. Patient claims that he had a restless night but denied any specific discomfort.. He is denying any chest pain or shortness of breath. Patient seems to be doing better with gradual improvement. Pt is denying any chest arm or neck discomfort. Patient denying any PND, orthopnea. Patient denied any sustained palpitations, dizziness, syncope, near syncope. Patient denying any fever chills. Patient denying any other significant discomfort. Patient noted to have predominantly AV paced rhythm. No sustained tachycardia or bradycardia arrhythmias noted. Review of systems: Rest review of systems negative. Medications: Medications have been reviewed. Physical Exam Vital Signs: Temp Pulse Resp BP Pulse Ox 97.4 F 47 L 12 98/43 L 100 03/19/17 08:06 03/19/17 08:06 03/19/17 08:06 03/19/17 08:06 03/19/17 08:06 Intake & Output 03/18/17 03/19/17 03/20/17 06:59 06:59 06:59 Intake Total 939 670 Output Total 425 1152 Balance 514 -482 Weight 83.6 kg 83.7 kg Exam: GENERAL: well-nourished and in no acute distress. Alert and oriented x3 HEAD: Atraumatic, normocephalic. EYES: Pupils equal round and reactive to light, extraocular movements intact, sclera anicteric, conjunctiva are normal. ENT: TMs normal, nares patent, oropharynx clear without exudates. Moist mucous membranes. No oral ulcerations or bleeding gums noted NECK: supple without lymphadenopathy. Trachea is central. No cervical or axillary lymphadenopathy noted. Carotids are 2+, JVD WNL LUNGS: Respiration seems nonlabored, no significant accessory muscle action noted. Breath sounds clear to auscultation bilaterally and equal noted. No wheezes rales or rhonchi noted. No significant dullness noted on percussion. CHEST: Palpation of the chest wall shows no significant chest wall tenderness. No other significant abnormalities noted. Dialysis catheter noted on right side chest. HEART: [place] MEAT SUPERVISOR, No PSH, 1/6 LIOR aortic area, 1/6 rea systolic murmur mitral area, no rubs, no gallops. ABDOMEN: Soft, no significant tenderness appreciated, normoactive bowel sounds. No guarding, no rebound. No rigidity noted . No masses appreciated. EXTREMITIES: Pedal pulses are 1-2+, no calf tenderness noted. No clubbing or cyanosis.trace pedal edema noted NEUROLOGICAL: Focused neurological exam showed no significant neurologic deficit. Normal speech, no focal weakness appreciated. PSYCH: Normal mood, normal affect. Judgment and insight within normal limits. SKIN: No significant ecchymosis, rash, ulcerations or signs of pruritus noted. MUSCULOSKELETAL EXAM: No significant joint swelling noted. Results Laboratory Results: 03/18/17 05:26 03/18/17 05:26 03/13/17 03/18/17 05:30 05:26 NT-Pro-B Natriuret Pep 52407 H 35669 H EKG Comments: Telemetry strips reviewed showed AV paced rhythm. No sustained tachycardia or bradycardia arrhythmias noted. Impressions: Chest X-Ray 03/13/17 08:00 IMPRESSION: Cardiomegaly. No acute consolidations are identified. Fluoroscopy 03/18/17 00:00 IMPRESSION: IMAGE(S) OBTAINED DURING PROCEDURE. Guidance Fluoroscopy 03/18/17 00:00 IMPRESSION: IMAGE(S) OBTAINED DURING PROCEDURE. Assessment & Plan - Diagnosis (1) Acute on chronic systolic heart failure Is this a current diagnosis for this admission?: Yes (2) Cardiac defibrillator in situ Is this a current diagnosis for this admission?: Yes (3) Chronic kidney disease Qualifiers: Chronic kidney disease stage: stage 5, not on chronic dialysis Qualified Code(s): N18.5 - Chronic kidney disease, stage 5 Is this a current diagnosis for this admission?: Yes (4) Hypertension Qualifiers: Hypertension type: essential hypertension Qualified Code(s): I10 - Essential (primary) hypertension Is this a current diagnosis for this admission?: Yes (5) Non-ischemic cardiomyopathy Is this a current diagnosis for this admission?: Yes (6) RLS (restless legs syndrome) Is this a current diagnosis for this admission?: Yes - Notes Notes: Acute on chronic systolic heart failure: Patient has severely depressed LVEF. Patient does have a functioning defibrillator, biventricular in situ. Medical management is being optimized. Patient's medication reviewed. Patient on hydralazine nitrate combination, carvedilol therapy. Will gradually increase DAVID inhibitor therapy. Currently blood pressure on the low side therefore no medication adjustment has been performed. Repeat chest x-ray in the morning. Cardiac defibrillator in situ: Seems functioning normally. Patient chest x-ray showed additional LV lead in coronary sinus addition to right atrial and left right ventricular lead. Telemetry strip shows normal functioning. Will repeat a chest x-ray in the morning. Chronic kidney disease: Stage V or even worse. Nephrology is seen. Stable on dialysis treatment. Tolerating well. Cardiomyopathy: Believed to be non-ischemic. We will try to obtain previous records. Medical regimen is being optimized. Hypertension: Reasonably well controlled. Blood pressure goal in this patient is 135/85 or less. This was discussed with the patient. Currently blood pressure under reasonable control. Restless leg syndrome: Patient claims to have this diagnosis. Continue on Neurontin 300 mg p.o. nightly, increase as needed. - Time Time with patient: 15-25 minutes - CODE STATUS was discussed, patient remains full code. Surrogate decision-maker unchanged. Multiple medical problems were addressed. More than 50% of the time spent coordinating care, discussing management plans with involved caregivers. Management plans discussed with involved personnels. Medical decision making was of moderate to high complexity , patient's has multiple comorbidities. Medications reviewed and adjusted accordingly: Yes
[2017-03-19 12:54] LABS: ABSOLUTE BASOPHILS # (AUTO) 0.1 10^3/uL (0.0-0.2); ABSOLUTE EOSINOPHILS # (AUTO) 0.5 10^3/uL (0.0-0.6); ABSOLUTE LYMPHOCYTES (AUTO) 0.6 10^3/uL (0.5-4.7); EOSINOPHILS % (AUTO) 6.5 % (0-6); HEMATOCRIT 27.6 % (37.9-51.0); HEMOGLOBIN 9.1 g/dL (13.5-17.0); HGB HCT DIFFERENCE -0.3; MEAN CORPUSCULAR HEMOGLOBIN 31.3 pg (27.0-33.4); MEAN CORPUSCULAR VOLUME 95 fl (80-97); MONOCYTES % (AUTO) 13.9 % (3-13); RED BLOOD COUNT 2.91 10^6/uL (4.35-5.55); RED CELL DISTRIBUTION WIDTH 17.4 % (11.5-14.0); SEGMENTED NEUTROPHILS % (AUTO) 69.6 % (42-78); WHITE BLOOD COUNT 7.2 10^3/uL (4.0-10.5)
[2017-03-19] MEDS ORDERED: HYDRALAZINE HCL 50 MG TABLET PO SCH (14:00)
[2017-03-19] MEDS: FOLIC ACID/VITAMIN B COMP W-C CAPSULE PO SCH (15:42)
--- NOTE | 2017-03-19 17:12 | PDOC PROGRESS REPORT ---
Subjective Progress Note for:: 03/19/17 Subjective:: Patient is doing fine except that he feels tired. His breathing is stable. However his blood pressure has been low and the systolic blood pressure is less than 100 consistently. Blood pressure medications have been held as well. He does not have any other complaints. Physical Exam Vital Signs: Temp Pulse Resp BP Pulse Ox 97.5 F 61 19 88/64 L 100 03/19/17 15:20 03/19/17 15:20 03/19/17 15:20 03/19/17 15:20 03/19/17 15:20 Intake & Output 03/18/17 03/19/17 03/20/17 06:59 06:59 06:59 Intake Total 939 670 358 Output Total 425 1152 Balance 514 -482 358 Weight 83.6 kg 83.7 kg Exam: General appearance: PRESENT: no acute distress, cooperative, well-developed, well-nourished Head exam: PRESENT: atraumatic, normocephalic Eye exam: PRESENT: conjunctiva pale, PERRLA. ABSENT: scleral icterus Neck exam: ABSENT: JVD Respiratory exam: PRESENT: Diminished breath sounds. ABSENT: crackles, rales, rhonchi, unlabored, wheezes Cardiovascular exam: PRESENT: Regular rate rhythm -+S1, +S2. Grade 2/6 systolic murmur ABSENT: diastolic murmur GI/Abdominal exam: PRESENT: normal bowel sounds, soft. ABSENT: guarding, mass, tenderness Extremities exam: ABSENT: No edema Neurological exam: PRESENT: alert, awake, oriented to person, place and time. Skin exam: PRESENT: dry, warm, Results Laboratory Results: 03/19/17 12:55 03/18/17 05:26 03/19/17 03/19/17 12:36 12:55 WBC 7.2 Cancelled RBC 2.91 L Cancelled Hgb 9.1 L Cancelled Hct 27.6 L Cancelled MCV 95 Cancelled MCH 31.3 Cancelled MCHC 33.0 Cancelled RDW 17.4 H Cancelled Plt Count 154 Cancelled Seg Neutrophils % 69.6 Lymphocytes % 9.0 L Monocytes % 13.9 H Eosinophils % 6.5 H Basophils % 1.0 Absolute Neutrophils 5.0 Absolute Lymphocytes 0.6 Absolute Monocytes 1.0 Absolute Eosinophils 0.5 Absolute Basophils 0.1 03/13/17 03/18/17 05:30 05:26 NT-Pro-B Natriuret Pep [id number] H [id number] H Impressions: Chest X-Ray 03/13/17 08:00 IMPRESSION: Cardiomegaly. No acute consolidations are identified. Fluoroscopy 03/18/17 00:00 IMPRESSION: IMAGE(S) OBTAINED DURING PROCEDURE. Guidance Fluoroscopy 03/18/17 00:00 IMPRESSION: IMAGE(S) OBTAINED DURING PROCEDURE. Assessment & Plan - Diagnosis (1) End stage renal disease on dialysis Is this a current diagnosis for this admission?: YesPlan: This is due to chronic cardiorenal syndrome. Patient's records, history and labs consistent with progressive deterioration of kidney function now with end- stage renal disease requiring hemodialysis treatment. At the at this stage the patient would benefit from initiation of chronic hemodialysis treatment to maintain volume and solute control. This will help hopefully prevent frequent exacerbations of congestive heart failure if we can control his volume through hemodialysis consistently. I had an extensive discussion with the patient regarding hemodialysis treatment versus peritoneal dialysis treatment. Due to his living condition and his age I think it is appropriate for him to do in-center hemodialysis treatment. Explained to patient how the procedure is done and the need for vascular access in the form of a catheter initially and later on AV fistula. Discussed the benefits as is stated above. Also discussed the risk for hemodialysis treatment including bleeding, infection, hemodynamic instability including . After several questions patient agreed to proceed. Plan for dialysis tomorrow. Orders entered. shoe lay out planner to also arrange outpatient dialysis treatment at [place]. (2) Cardiorenal syndrome with renal failure Is this a current diagnosis for this admission?: Yes (3) Hypotension Is this a current diagnosis for this admission?: YesPlan: I talked to Dr. Dupree today regarding the patient's hypotension. We agreed to discontinue the patient's hydralazine. The patient's Lasix has also been discontinued yesterday. Patient's blood pressure medications including the isosorbide mononitrate should be held prior to dialysis treatment. Parameters regarding lisinopril and carvedilol was also in place. (4) Anemia in chronic kidney disease (CKD) Qualifiers: Chronic kidney disease stage: on chronic dialysis Qualified Code(s) : N18.6 - End stage renal disease; D63.1 - Anemia in chronic kidney disease; Z99.2 - Dependence on renal dialysis Is this a current diagnosis for this admission?: YesPlan: We will give Epogen and IV Venofer during dialysis treatment. (5) Iron deficiency anemia Is this a current diagnosis for this admission?: Yes (6) Hyperphosphatemia Is this a current diagnosis for this admission?: YesPlan: Start PhosLo 667 mg 2 capsules with meals. (7) Non-ischemic cardiomyopathy Is this a current diagnosis for this admission?: Yes (8) Acute on chronic systolic heart failure Is this a current diagnosis for this admission?: Yes (9) RLS (restless legs syndrome) Is this a current diagnosis for this admission?: Yes - Time Time with patient: 15-25 minutes
[2017-03-19] MEDS: TAMSULOSIN HCL 0.4 MG CAP.SR.24H PO SCH (21:14)
[2017-03-19] MEDS: WARFARIN SODIUM 2 MG TABLET PO SCH (21:14)
[2017-03-19] MEDS: GABAPENTIN 300 MG CAPSULE PO SCH (21:14)
[2017-03-19] MEDS: ROPINIROLE HCL 0.25 MG TABLET PO SCH (21:15)
[2017-03-19] MEDS: LATANOPROST 0.005% OPH SOLN 2.5 ML OU SCH (21:16)
[2017-03-20] MEDS ORDERED: EPOETIN ALFA INJ 20000 UNIT/1 ML VIAL (RENAL) IV PRN (05:00)
[2017-03-20] MEDS ORDERED: EPOETIN ALFA 10,000 UNIT in SYRINGE, DISPOSABLE, 1 EACH IV PRN (05:00)
[2017-03-20] MEDS ORDERED: IRON SUCROSE COMPLEX INJ/PF 100 MG/5 ML SDV IV PRN (05:00)
[2017-03-20] MEDS ORDERED: NORMAL SALINE 1000 ML 1,000 ML IV PRN (05:00)
[2017-03-20 05:35] LABS: ABSOLUTE BASOPHILS # (AUTO) 0.1 10^3/uL (0.0-0.2); ABSOLUTE EOSINOPHILS # (AUTO) 0.5 10^3/uL (0.0-0.6); ABSOLUTE LYMPHOCYTES (AUTO) 0.8 10^3/uL (0.5-4.7); ABSOLUTE MONOCYTES (AUTO) 1.1 10^3/uL (0.1-1.4); ABSOLUTE NEUT (AUTO) 4.9 10^3/uL (1.7-8.2); EOSINOPHILS % (AUTO) 7.2 % (0-6); HEMATOCRIT 27.1 % (37.9-51.0); HEMOGLOBIN 9.2 g/dL (13.5-17.0); HGB HCT DIFFERENCE 0.5; LYMPHOCYTES % (AUTO) 10.8 % (13-45); MEAN CORPUSCULAR HEMOGLOBIN 31.9 pg (27.0-33.4); MEAN CORPUSCULAR HGB CONC 33.8 g/dL (32.0-36.0); MEAN CORPUSCULAR VOLUME 94 fl (80-97); MONOCYTES % (AUTO) 14.9 % (3-13); RED BLOOD COUNT 2.88 10^6/uL (4.35-5.55); RED CELL DISTRIBUTION WIDTH 17.3 % (11.5-14.0); SEGMENTED NEUTROPHILS % (AUTO) 66.1 % (42-78); WHITE BLOOD COUNT 7.5 10^3/uL (4.0-10.5)
[2017-03-20 05:40] LABS: PROTHROMBIN TIME 15.1 SEC (11.4-15.4)
[2017-03-20 05:55] LABS: ANION GAP 12 (5-19); BLOOD UREA NITROGEN 77 mg/dL (7-20); CALCIUM 8.8 mg/dL (8.4-10.2); CARBON DIOXIDE 27 mmol/L (22-30); CHLORIDE 95 mmol/L (98-107); GLUCOSE 85 mg/dL (75-110); PHOSPHORUS 5.3 mg/dL (2.5-4.5); POTASSIUM 5.3 mmol/L (3.6-5.0); SODIUM 134.3 mmol/L (137-145)
[2017-03-20 07:00] LABS: APPEARANCE,URINE SLIGHTLY-CLOUDY; BILIRUBIN,URINE NEGATIVE (NEGATIVE); GLUCOSE, URINE NEGATIVE (NEGATIVE); KETONES,URINE NEGATIVE (NEGATIVE); LEUKOCYTE ESTERASE,URINE TRACE (NEGATIVE); NITRITE,URINE NEGATIVE (NEGATIVE); PROTEIN,URINE NEGATIVE (NEGATIVE); UROBILINOGEN,URINE NEGATIVE mg/dL (<2.0)
--- NOTE | 2017-03-20 07:57 | RADIOLOGY REPORT (SQ) ---
EXAM DESCRIPTION: CHEST PA/LAT COMPLETED DATE/TIME: 03/20/2017 7:34 am REASON FOR STUDY: followup CHF COMPARISON: 03/13/2017. EXAM PARAMETERS: NUMBER OF VIEWS: two views TECHNIQUE: Digital Frontal and Lateral radiographic views of the chest acquired. RADIATION DOSE: NA LIMITATIONS: none FINDINGS: LUNGS AND PLEURA: No opacities, masses or pneumothorax. No pleural effusion. MEDIASTINUM AND HILAR STRUCTURES: No masses or contour abnormalities. HEART AND VASCULAR STRUCTURES: Mild enlargement of the cardiac silhouette. BONES: No acute findings. HARDWARE: Left cardiac stimulation device and leads. Right internal jugular central line. OTHER: No other significant finding. IMPRESSION: No acute cardiopulmonary findings. Mild cardiac enlargement. TECHNICAL DOCUMENTATION: JOB ID: [id number] [employer]- All Rights Reserved
[2017-03-20] MEDS: CALCIUM ACETATE 667 MG CAPSULE PO SCH ×3 (08:03→16:45)
--- NOTE | 2017-03-20 11:33 | PDOC PROGRESS REPORT ---
Subjective Progress Note for:: 03/20/17 Subjective:: Patient is denying any significant complaints. Patient had problems with low blood pressure yesterday and hydralazine was stopped. This morning his blood pressure is stable. She is tolerating dialysis and was seen on dialysis. Currently plan is to remove 1 L of fluid on dialysis.. He is denying any chest pain or shortness of breath. Patient seems to be doing better with gradual improvement. Pt is denying any chest arm or neck discomfort. Patient denying any PND, orthopnea. Patient denied any sustained palpitations, dizziness, syncope, near syncope. Patient denying any fever chills. Patient denying any other significant discomfort. Patient noted to have predominantly AV paced rhythm. No sustained tachycardia or bradycardia arrhythmias noted. Review of systems: Rest review of systems negative. Medications: Medications have been reviewed. Physical Exam Vital Signs: Temp Pulse Resp BP Pulse Ox 98.1 F 59 L 20 119/50 L 100 03/20/17 07:18 03/20/17 07:18 03/20/17 07:18 03/20/17 07:18 03/20/17 07:18 Intake & Output 03/19/17 03/20/17 03/21/17 06:59 06:59 06:59 Intake Total 670 918 Output Total 1152 650 Balance -482 268 Weight 83.7 kg 84.1 kg Exam: GENERAL: well-nourished and in no acute distress. Alert and oriented x3 HEAD: Atraumatic, normocephalic. EYES: Pupils equal round and reactive to light, extraocular movements intact, sclera anicteric, conjunctiva are normal. ENT: TMs normal, nares patent, oropharynx clear without exudates. Moist mucous membranes. No oral ulcerations or bleeding gums noted NECK: supple without lymphadenopathy. Trachea is central. No cervical or axillary lymphadenopathy noted. Carotids are 2+, JVD WNL LUNGS: Respiration seems nonlabored, no significant accessory muscle action noted. Breath sounds clear to auscultation bilaterally and equal noted. No wheezes rales or rhonchi noted. No significant dullness noted on percussion. CHEST: Palpation of the chest wall shows no significant chest wall tenderness. No other significant abnormalities noted. 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 ABDOMEN: Soft, no significant tenderness appreciated, normoactive bowel sounds. No guarding, no rebound. No rigidity noted . No masses appreciated. EXTREMITIES: Pedal pulses are 1-2+, no calf tenderness noted. No clubbing or cyanosis.trace pedal edema noted NEUROLOGICAL: Focused neurological exam showed no significant neurologic deficit. Normal speech, no focal weakness appreciated. PSYCH: Normal mood, normal affect. Judgment and insight within normal limits. SKIN: No significant ecchymosis, rash, ulcerations or signs of pruritus noted. MUSCULOSKELETAL EXAM: No significant joint swelling noted. Results Laboratory Results: 03/20/17 05:21 03/20/17 05:21 03/19/17 03/19/17 03/20/17 12:36 12:55 05:21 WBC 7.2 Cancelled 7.5 RBC 2.91 L Cancelled 2.88 L Hgb 9.1 L Cancelled 9.2 L Hct 27.6 L Cancelled 27.1 L MCV 95 Cancelled 94 MCH 31.3 Cancelled 31.9 MCHC 33.0 Cancelled 33.8 RDW 17.4 H Cancelled 17.3 H Plt Count 154 Cancelled 142 L Seg Neutrophils % 69.6 66.1 Lymphocytes % 9.0 L 10.8 L Monocytes % 13.9 H 14.9 H Eosinophils % 6.5 H 7.2 H Basophils % 1.0 1.0 Absolute Neutrophils 5.0 4.9 Absolute Lymphocytes 0.6 0.8 Absolute Monocytes 1.0 1.1 Absolute Eosinophils 0.5 0.5 Absolute Basophils 0.1 0.1 Sodium Potassium Chloride Carbon Dioxide Anion Gap BUN Creatinine Est GFR ( Amer) Est GFR (Non-Af Amer) Glucose Calcium Phosphorus Urine Color Urine Appearance Urine pH Ur Specific [place] Urine Protein Urine Glucose (UA) Urine Ketones Urine Blood Urine Nitrite Ur Leukocyte Esterase Urine WBC (Auto) Urine RBC (Auto) 03/20/17 03/20/17 05:21 05:45 WBC RBC Hgb Hct MCV MCH MCHC RDW Plt Count Seg Neutrophils % Lymphocytes % Monocytes % Eosinophils % Basophils % Absolute Neutrophils Absolute Lymphocytes Absolute Monocytes Absolute Eosinophils Absolute Basophils Sodium 134.3 L Potassium 5.3 H Chloride 95 L Carbon Dioxide 27 Anion Gap 12 BUN 77 H Creatinine 6.80 H Est GFR ( Amer) 10 L Est GFR (Non-Af Amer) 8 L Glucose 85 Calcium 8.8 Phosphorus 5.3 H Urine Color YELLOW Urine Appearance SLIGHTLY-CLOUDY Urine pH 5.0 Ur Specific [place] 1.010 Urine Protein NEGATIVE Urine Glucose (UA) NEGATIVE Urine Ketones NEGATIVE Urine Blood NEGATIVE Urine Nitrite NEGATIVE Ur Leukocyte Esterase TRACE H Urine WBC (Auto) 3 Urine RBC (Auto) 1 03/13/17 03/18/17 05:30 05:26 NT-Pro-B Natriuret Pep 12586 H [id number] H EKG Comments: Telemetry strips reviewed. Showed AV paced rhythm Impressions: Fluoroscopy 03/18/17 00:00 IMPRESSION: IMAGE(S) OBTAINED DURING PROCEDURE. Guidance Fluoroscopy 03/18/17 00:00 IMPRESSION: IMAGE(S) OBTAINED DURING PROCEDURE. Chest X-Ray 03/20/17 07:30 IMPRESSION: No acute cardiopulmonary findings. Mild cardiac enlargement. Assessment & Plan - Diagnosis (1) Acute on chronic systolic heart failure Is this a current diagnosis for this admission?: Yes (2) Cardiac defibrillator in situ Is this a current diagnosis for this admission?: Yes (3) Chronic kidney disease Qualifiers: Chronic kidney disease stage: stage 5, not on chronic dialysis Qualified Code(s): N18.5 - Chronic kidney disease, stage 5 Is this a current diagnosis for this admission?: Yes (4) Hypertension Qualifiers: Hypertension type: essential hypertension Qualified Code(s): I10 - Essential (primary) hypertension Is this a current diagnosis for this admission?: Yes (5) Non-ischemic cardiomyopathy Is this a current diagnosis for this admission?: Yes (6) RLS (restless legs syndrome) Is this a current diagnosis for this admission?: Yes - Notes Notes: Hydralazine was stopped yesterday. Patient no longer on diuretic therapy as fluid is being removed on dialysis. Blood pressure more stable today. Patient on chronic Coumadin therapy but currently subtherapeutic. Acute on chronic systolic heart failure: Patient has severely depressed LVEF. Patient does have a functioning defibrillator, biventricular in situ. Medical management is being optimized. Patient's medication reviewed. Continue carvedilol therapy. Will gradually increase DAVID inhibitor therapy. Currently blood pressure on the low side therefore no medication adjustment has been performed. Chest x-ray shows resolution of CHF. Cardiac defibrillator in situ: Seems functioning normally. Patient chest x-ray showed additional LV lead in coronary sinus addition to right atrial and left right ventricular lead. Telemetry strip shows normal functioning. Chronic kidney disease: Stage V or even worse. Nephrology is seen. Stable on dialysis treatment. Tolerating well. Cardiomyopathy: Believed to be non-ischemic. Medical regimen is being optimized. Hypertension: Reasonably well controlled. Blood pressure goal in this patient is 135/85 or less. This was discussed with the patient. Currently blood pressure under reasonable control. Restless leg syndrome: Patient claims to have this diagnosis. Continue on Neurontin 300 mg p.o. nightly, increase as needed. Atrial fibrillation: Paroxysmal. Continue chronic Coumadin therapy. Will be happy to follow patient in the office regarding monitoring Coumadin therapy. - Time Time with patient: 15-25 minutes - CODE STATUS was discussed, patient remains full code. Surrogate decision-maker unchanged. Multiple medical problems were addressed. More than 50% of the time spent coordinating care, discussing management plans with involved caregivers. Management plans discussed with involved personnels. Medical decision making was of moderate to high complexity , patient's has multiple comorbidities.
--- NOTE | 2017-03-20 11:55 | PDOC PROGRESS REPORT ---
Subjective Progress Note for:: 03/20/17 Subjective:: reason for visit: f/u volume overload with heart failure, ESRD starting HD this admit, hypoxia hosptial course: per other's notes - "This is a follow-up visit for end-stage renal disease and acute on chronic systolic heart failure. The patient was admitted 7 days ago. He came in as a transfer from [facility]. He was initially admitted there for volume overload heart failure. There he was evaluated by property controller and gas engine operator and he was felt to need to transition to dialysis. Therefore he was transferred referred here for further management. Since the patient has been here he is been diuresed quite aggressively in addition to this he initially had a temporary catheter placed in the femoral region. This was done because his INR was still therapeutic. The patient underwent PermCath placement today and with discontinuation of the temporary catheter. His warfarin will need to be restarted tomorrow. He has had 3 sessions of hemodialysis as tolerated this well. While here he is complained of restless legs and was started on Requip which has helped tremendously. Cardiology is following as well as nephrology. At this point the patient is doing quite well and we can start planning to transition him to [place]. The patient has been working with physical therapy. He is from [place] and discharge planning is trying to get him placed in [place]. Arrangements have already been made with [facility] for outpatient dialysis in [place]. The patient feels much better this morning. He states that his legs feel better after having the Requip again last night. He has no chest pain or shortness of breath." he successfully underwent his first dialysis session Saturday and is seen on dialysis today; had some nausea yesterday but overall feels better; still wearing supplemental O2 but only 2L and sats 100% so he may be able to wean off. denies chest pain, wheezing, cough with phlegm, n/v/d. ROS: all systems reviewed, see above, remaining systems negative Physical Exam Vital Signs: Temp Pulse Resp BP Pulse Ox 98.1 F 59 L 20 119/50 L 100 03/20/17 07:18 03/20/17 07:18 03/20/17 07:18 03/20/17 07:18 03/20/17 07:18 Intake & Output 03/19/17 03/20/17 03/21/17 06:59 06:59 06:59 Intake Total 670 918 Output Total 1152 650 Balance -482 268 Weight 83.7 kg 84.1 kg General appearance: PRESENT: hard of hearing, well-developed, well-nourished Head exam: PRESENT: atraumatic, normocephalic Eye exam: PRESENT: EOMI. ABSENT: scleral icterus Mouth exam: PRESENT: moist, neck supple Neck exam: PRESENT: full ROM. ABSENT: tracheal deviation Respiratory exam: PRESENT: crackles - bilat bases, unlabored. ABSENT: accessory muscle use, rhonchi, wheezes Cardiovascular exam: PRESENT: RRR, systolic murmur Pulses: PRESENT: normal radial pulses, normal dorsalis pedis pul GI/Abdominal exam: PRESENT: normal bowel sounds, soft. ABSENT: guarding, tenderness Extremities exam: PRESENT: pedal edema - trace at the ankles. ABSENT: calf tenderness Musculoskeletal exam: PRESENT: full ROM. ABSENT: tenderness Neurological exam: PRESENT: alert, awake, oriented to person, oriented to place , oriented to time Psychiatric exam: PRESENT: appropriate affect, normal mood Skin exam: PRESENT: dry, warm Results Laboratory Results: 03/20/17 05:21 03/20/17 05:21 03/19/17 03/19/17 03/20/17 12:36 12:55 05:21 WBC 7.2 Cancelled 7.5 RBC 2.91 L Cancelled 2.88 L Hgb 9.1 L Cancelled 9.2 L Hct 27.6 L Cancelled 27.1 L MCV 95 Cancelled 94 MCH 31.3 Cancelled 31.9 MCHC 33.0 Cancelled 33.8 RDW 17.4 H Cancelled 17.3 H Plt Count 154 Cancelled 142 L Seg Neutrophils % 69.6 66.1 Lymphocytes % 9.0 L 10.8 L Monocytes % 13.9 H 14.9 H Eosinophils % 6.5 H 7.2 H Basophils % 1.0 1.0 Absolute Neutrophils 5.0 4.9 Absolute Lymphocytes 0.6 0.8 Absolute Monocytes 1.0 1.1 Absolute Eosinophils 0.5 0.5 Absolute Basophils 0.1 0.1 Sodium Potassium Chloride Carbon Dioxide Anion Gap BUN Creatinine Est GFR ( Amer) Est GFR (Non-Af Amer) Glucose Calcium Phosphorus Urine Color Urine Appearance Urine pH Ur Specific [place] Urine Protein Urine Glucose (UA) Urine Ketones Urine Blood Urine Nitrite Ur Leukocyte Esterase Urine WBC (Auto) Urine RBC (Auto) 03/20/17 03/20/17 05:21 05:45 WBC RBC Hgb Hct MCV MCH MCHC RDW Plt Count Seg Neutrophils % Lymphocytes % Monocytes % Eosinophils % Basophils % Absolute Neutrophils Absolute Lymphocytes Absolute Monocytes Absolute Eosinophils Absolute Basophils Sodium 134.3 L Potassium 5.3 H Chloride 95 L Carbon Dioxide 27 Anion Gap 12 BUN 77 H Creatinine 6.80 H Est GFR ( Amer) 10 L Est GFR (Non-Af Amer) 8 L Glucose 85 Calcium 8.8 Phosphorus 5.3 H Urine Color YELLOW Urine Appearance SLIGHTLY-CLOUDY Urine pH 5.0 Ur Specific [place] 1.010 Urine Protein NEGATIVE Urine Glucose (UA) NEGATIVE Urine Ketones NEGATIVE Urine Blood NEGATIVE Urine Nitrite NEGATIVE Ur Leukocyte Esterase TRACE H Urine WBC (Auto) 3 Urine RBC (Auto) 1 03/13/17 03/18/17 05:30 05:26 NT-Pro-B Natriuret Pep 32852 H 15711 H Impressions: Fluoroscopy 03/18/17 00:00 IMPRESSION: IMAGE(S) OBTAINED DURING PROCEDURE. Guidance Fluoroscopy 03/18/17 00:00 IMPRESSION: IMAGE(S) OBTAINED DURING PROCEDURE. Chest X-Ray 03/20/17 07:30 IMPRESSION: No acute cardiopulmonary findings. Mild cardiac enlargement. Assessment & Plan - Diagnosis (1) Cardiorenal syndrome with renal failure Is this a current diagnosis for this admission?: Yes (2) Acute on chronic systolic heart failure Is this a current diagnosis for this admission?: Yes (3) Acute respiratory failure with hypoxemia Is this a current diagnosis for this admission?: Yes (4) Anemia in chronic kidney disease (CKD) Qualifiers: Chronic kidney disease stage: on chronic dialysis Qualified Code(s) : N18.6 - End stage renal disease; D63.1 - Anemia in chronic kidney disease; Z99.2 - Dependence on renal dialysis Is this a current diagnosis for this admission?: Yes (5) Atrial fibrillation Qualifiers: Atrial fibrillation type: chronic Qualified Code(s): I48.2 - Chronic atrial fibrillation Is this a current diagnosis for this admission?: Yes (6) COPD (chronic obstructive pulmonary disease) Is this a current diagnosis for this admission?: No (7) Cardiac defibrillator in situ Is this a current diagnosis for this admission?: Yes (8) RLS (restless legs syndrome) Is this a current diagnosis for this admission?: Yes (9) Hypertension Qualifiers: Hypertension type: essential hypertension Qualified Code(s): I10 - Essential (primary) hypertension Is this a current diagnosis for this admission?: Yes - Time Time Spent with patient: 25-34 minutes Anticipated discharge: Acute Rehab - interested in transitioning through rehab before going home with homehealth and live-in MARKETING MANAGER the daughter is reportedly working on Within: within 24 hours - Plan Summary Plan Summary: anticipate d/c tomorrow if his post dialysis BPs remain stable, otherwise will need further titration ofhis HTN regimen prior to d/c
[2017-03-20] MEDS: HEPARIN SOD (PORCINE) 1,000 UNIT/ML 10 ML VIAL IV PRN (12:16)
[2017-03-20] MEDS: AMIODARONE HCL 200 MG TABLET PO SCH (12:52)
[2017-03-20] MEDS: CARVEDILOL 12.5 MG TABLET PO SCH ×2 (12:54→21:28)
[2017-03-20] MEDS: ISOSORBIDE MONONITRATE 30 MG TAB.ER.24H PO SCH (12:55)
[2017-03-20] MEDS: LISINOPRIL 5 MG TABLET PO SCH ×2 (12:56→21:28)
[2017-03-20] MEDS: FOLIC ACID/VITAMIN B COMP W-C CAPSULE PO SCH (15:45)
--- NOTE | 2017-03-20 17:26 | PDOC PROGRESS REPORT ---
Subjective Progress Note for:: 03/20/17 Subjective:: I saw the patient during dialysis this morning at around 9 AM. Patient looks good and is in good spirits. Tells me he has been sleeping better now that he is taking medication for his restless legs. His breathing is a stable. He does not have any other complaints. He tells me that he wants to go home and his daughter has hired somebody to stay with him 24 hours a day. Patient has tolerated dialysis without any problems today. Blood pressure is also been improved since we stopped the hydralazine and blood pressure medications being held prior to dialysis treatment. Physical Exam Vital Signs: Temp Pulse Resp BP Pulse Ox 98.1 F 57 L 20 105/37 L 97 03/20/17 16:04 03/20/17 16:04 03/20/17 16:04 03/20/17 16:04 03/20/17 16:48 Intake & Output 03/19/17 03/20/17 03/21/17 06:59 06:59 06:59 Intake Total 670 918 476 Output Total 7877 651 3411 Balance -482 268 -524 Weight 83.7 kg 84.1 kg Vital signs during dialysis: Pressure 111/45, heart rate of 60, blood flow rate of 300 mL/min, dialysate flow rate of 600 mL/min. Exam: General appearance: PRESENT: no acute distress, cooperative, well-developed, well-nourished Head exam: PRESENT: atraumatic, normocephalic Eye exam: PRESENT: conjunctiva slightly pale, PERRLA. ABSENT: scleral icterus Neck exam: ABSENT: JVD Respiratory exam: PRESENT: Diminished breath sounds. ABSENT: crackles, rales, rhonchi, unlabored, wheezes Cardiovascular exam: PRESENT: Regular rate rhythm -+S1, +S2. Grade 2/6 systolic murmur ABSENT: diastolic murmur GI/Abdominal exam: PRESENT: normal bowel sounds, soft. ABSENT: guarding, mass, tenderness Extremities exam: Bilateral trace ankle edema Neurological exam: PRESENT: alert, awake, oriented to person, place and time. Skin exam: PRESENT: dry, warm, Results Laboratory Results: 03/20/17 05:21 03/20/17 05:21 03/20/17 03/20/17 03/20/17 05:21 05:21 05:45 WBC 7.5 RBC 2.88 L Hgb 9.2 L Hct 27.1 L MCV 94 MCH 31.9 MCHC 33.8 RDW 17.3 H Plt Count 142 L Seg Neutrophils % 66.1 Lymphocytes % 10.8 L Monocytes % 14.9 H Eosinophils % 7.2 H Basophils % 1.0 Absolute Neutrophils 4.9 Absolute Lymphocytes 0.8 Absolute Monocytes 1.1 Absolute Eosinophils 0.5 Absolute Basophils 0.1 Sodium 134.3 L Potassium 5.3 H Chloride 95 L Carbon Dioxide 27 Anion Gap 12 BUN 77 H Creatinine 6.80 H Est GFR ( Amer) 10 L Est GFR (Non-Af Amer) 8 L Glucose 85 Calcium 8.8 Phosphorus 5.3 H Urine Color YELLOW Urine Appearance SLIGHTLY-CLOUDY Urine pH 5.0 Ur Specific [place] 1.010 Urine Protein NEGATIVE Urine Glucose (UA) NEGATIVE Urine Ketones NEGATIVE Urine Blood NEGATIVE Urine Nitrite NEGATIVE Ur Leukocyte Esterase TRACE H Urine WBC (Auto) 3 Urine RBC (Auto) 1 03/13/17 03/18/17 05:30 05:26 NT-Pro-B Natriuret Pep 33217 H [id number] H Impressions: Fluoroscopy 03/18/17 00:00 IMPRESSION: IMAGE(S) OBTAINED DURING PROCEDURE. Guidance Fluoroscopy 03/18/17 00:00 IMPRESSION: IMAGE(S) OBTAINED DURING PROCEDURE. Chest X-Ray 03/20/17 07:30 IMPRESSION: No acute cardiopulmonary findings. Mild cardiac enlargement. Assessment & Plan - Diagnosis (1) End stage renal disease on dialysis Is this a current diagnosis for this admission?: YesPlan: This is due to chronic cardiorenal syndrome. Patient has been tolerating dialysis well he is here in the hospital. We did dialysis today for 3 hours, using the patient's PermCath, with 2 potassium bath, blood flow rate of 300 mL per minute, dialysate flow rate of 600 mL per minute, ultrafiltration 1 L, no heparin and Procrit with 10,000 units during dialysis intravenously. Per discharge planning patient is already accepted at [facility] in [place] to continue his chronic dialysis treatment as an outpatient. It appears that his accepting cash applications clerk is from [facility] as well. From my standpoint if everything is already arranged , the patient is stable enough to be discharged home any time from now. (2) Cardiorenal syndrome with renal failure Is this a current diagnosis for this admission?: Yes (3) Hypotension Is this a current diagnosis for this admission?: YesPlan: Pressures of been better today with discontinuation of hydralazine and holding blood pressure medications prior to dialysis. (4) Anemia in chronic kidney disease (CKD) Qualifiers: Chronic kidney disease stage: on chronic dialysis Qualified Code(s) : N18.6 - End stage renal disease; D63.1 - Anemia in chronic kidney disease; Z99.2 - Dependence on renal dialysis Is this a current diagnosis for this admission?: YesPlan: We will give Epogen and IV Venofer during dialysis treatment. (5) Iron deficiency anemia Is this a current diagnosis for this admission?: Yes (6) Hyperphosphatemia Is this a current diagnosis for this admission?: YesPlan: Start PhosLo 667 mg 2 capsules with meals. (7) Non-ischemic cardiomyopathy Is this a current diagnosis for this admission?: Yes (8) Acute on chronic systolic heart failure Is this a current diagnosis for this admission?: Yes (9) RLS (restless legs syndrome) Is this a current diagnosis for this admission?: Yes - Time Time with patient: 15-25 minutes
[2017-03-20] MEDS: GABAPENTIN 300 MG CAPSULE PO SCH (21:28)
[2017-03-20] MEDS: TAMSULOSIN HCL 0.4 MG CAP.SR.24H PO SCH (21:28)
[2017-03-20] MEDS: ROPINIROLE HCL 0.25 MG TABLET PO SCH (21:28)
[2017-03-20] MEDS: WARFARIN SODIUM 2 MG TABLET PO SCH (21:28)
[2017-03-20] MEDS: LATANOPROST 0.005% OPH SOLN 2.5 ML OU SCH (21:29)
[2017-03-21 06:41] LABS: PROTHROMBIN TIME 14.7 SEC (11.4-15.4)
[2017-03-21] MEDS: CALCIUM ACETATE 667 MG CAPSULE PO SCH ×3 (08:15→16:47)
[2017-03-21] MEDS: LISINOPRIL 5 MG TABLET PO SCH ×2 (09:28→21:26)
[2017-03-21] MEDS: AMIODARONE HCL 200 MG TABLET PO SCH (09:28)
[2017-03-21] MEDS: ISOSORBIDE MONONITRATE 30 MG TAB.ER.24H PO SCH (09:30)
[2017-03-21] MEDS: CARVEDILOL 12.5 MG TABLET PO SCH ×2 (09:59→21:25)
--- NOTE | 2017-03-21 11:14 | PDOC PROGRESS REPORT ---
Subjective Progress Note for:: 03/21/17 Subjective:: reason for visit: f/u volume overload with heart failure, ESRD starting HD this admit, hypoxia hosptial course: per other's notes - "This is a follow-up visit for end-stage renal disease and acute on chronic systolic heart failure. The patient was admitted 7 days ago. He came in as a transfer from [facility]. He was initially admitted there for volume overload heart failure. There he was evaluated by ramp service man and pharmacy intake technician and he was felt to need to transition to dialysis. Therefore he was transferred referred here for further management. Since the patient has been here he is been diuresed quite aggressively in addition to this he initially had a temporary catheter placed in the femoral region. This was done because his INR was still therapeutic. The patient underwent PermCath placement today and with discontinuation of the temporary catheter. His warfarin will need to be restarted tomorrow. He has had 3 sessions of hemodialysis as tolerated this well. While here he is complained of restless legs and was started on Requip which has helped tremendously. Cardiology is following as well as nephrology. At this point the patient is doing quite well and we can start planning to transition him to [place]. The patient has been working with physical therapy. He is from [place] and discharge planning is trying to get him placed in [place]. Arrangements have already been made with [facility] for outpatient dialysis in [place]. The patient feels much better this morning. He states that his legs feel better after having the Requip again last night. He has no chest pain or shortness of breath." It has come to my attention there is some confusion regarding discharge planning for this patient for which I am blamed. Let me make this perfectly clear, I have no vested interest in where the patient chooses to rehab whether at home or in a facility. It is my opinion, as well as PT, that he will do better with a brief rehab stay in a professionally monitored setting thereby decreasing his likelihood of readmission and speeding his recovery but if he and his daughter prefer to take him home with homehealth and nursing that is certainly their prerogative and I will not/do not oppose. In fact, I will do anything I can to facilitate and support his decision either way. As it is, he cannot discharge anywhere until outpatient dialysis services are secured and [facility] reports those arrangements are still very much pending. Mr. Nash himself mentioned going to rehab when I asked him about his discharge plans, so I don't understand where all the angst originated. I informed him that he is medically stable for discharge as long as his blood pressure stabilizes after dialysis. It seems that his intake appt with [facility] in [place] cannot occur until Saturday therefore he will need to stay for dialysis on Saturday, possible d/c home Saturday with f/u on Saturday to initiate HD on a schedule thereafter. he successfully underwent his first dialysis session Saturday; had some nausea yesterday but overall feels better; still wearing supplemental O2 but only 2L and sats 100% so he may be able to wean off. denies chest pain, wheezing, cough with phlegm, n/v/d. ROS: all systems reviewed, see above, remaining systems negative Physical Exam Vital Signs: Temp Pulse Resp BP Pulse Ox 97.6 F 60 20 138/64 H 100 03/21/17 07:22 03/21/17 08:43 03/21/17 07:22 03/21/17 07:22 03/21/17 07:22 Intake & Output 03/20/17 03/21/17 03/22/17 06:59 06:59 06:59 Intake Total 918 1386 Output Total 650 1825 Balance 268 -439 Weight 84.1 kg 84.6 kg General appearance: PRESENT: hard of hearing, well-developed, well-nourished Head exam: PRESENT: atraumatic, normocephalic Eye exam: PRESENT: EOMI. ABSENT: scleral icterus Mouth exam: PRESENT: moist, neck supple Neck exam: PRESENT: full ROM. ABSENT: tracheal deviation Respiratory exam: PRESENT: crackles - bilat bases, unlabored. ABSENT: accessory muscle use, rhonchi, wheezes Cardiovascular exam: PRESENT: RRR, systolic murmur Pulses: PRESENT: normal radial pulses, normal dorsalis pedis pul GI/Abdominal exam: PRESENT: normal bowel sounds, soft. ABSENT: guarding, tenderness Extremities exam: PRESENT: pedal edema - trace at the ankles. ABSENT: calf tenderness Musculoskeletal exam: PRESENT: full ROM. ABSENT: tenderness Neurological exam: PRESENT: alert, awake, oriented to person, oriented to place , oriented to time Psychiatric exam: PRESENT: appropriate affect, normal mood Skin exam: PRESENT: dry, warm Results Laboratory Results: 03/20/17 05:21 03/20/17 05:21 03/21/17 01:55 Stool Occult Blood NEGATIVE 03/13/17 03/18/17 05:30 05:26 NT-Pro-B Natriuret Pep 38892 H 89764 H Assessment & Plan - Diagnosis (1) Cardiorenal syndrome with renal failure Is this a current diagnosis for this admission?: Yes (2) Acute on chronic systolic heart failure Is this a current diagnosis for this admission?: Yes (3) Acute respiratory failure with hypoxemia Is this a current diagnosis for this admission?: Yes (4) Anemia in chronic kidney disease (CKD) Qualifiers: Chronic kidney disease stage: on chronic dialysis Qualified Code(s) : N18.6 - End stage renal disease; D63.1 - Anemia in chronic kidney disease; Z99.2 - Dependence on renal dialysis Is this a current diagnosis for this admission?: Yes (5) Atrial fibrillation Qualifiers: Atrial fibrillation type: chronic Qualified Code(s): I48.2 - Chronic atrial fibrillation Is this a current diagnosis for this admission?: Yes (6) COPD (chronic obstructive pulmonary disease) Is this a current diagnosis for this admission?: No (7) Cardiac defibrillator in situ Is this a current diagnosis for this admission?: Yes (8) RLS (restless legs syndrome) Is this a current diagnosis for this admission?: Yes (9) Hypertension Qualifiers: Hypertension type: essential hypertension Qualified Code(s): I10 - Essential (primary) hypertension Is this a current diagnosis for this admission?: Yes - Time Time Spent with patient: 25-34 minutes Medications reviewed and adjusted accordingly: Yes - Plan Summary Plan Summary: case discussed with dr lerner by phone and we agreed he will need to stay until Saturday so that he can get another round of HD before establishing with [facility] and accepting pharmacy intake technician on Saturday, 03/25
--- NOTE | 2017-03-21 11:51 | PDOC PROGRESS REPORT ---
Subjective Progress Note for:: 03/21/17 Subjective:: Patient is denying any significant complaints. Patient had problems with low blood pressure improved in the last 24 hours. This morning his blood pressure is stable. He is denying any chest pain or shortness of breath. Patient seems to be doing better with gradual improvement. Pt is denying any chest arm or neck discomfort. Patient denying any PND, orthopnea. Patient denied any sustained palpitations, dizziness, syncope, near syncope. Patient denying any fever chills. Patient denying any other significant discomfort. Patient has problems with sleep and claims that he is getting unrestful sleep. Patient noted to have predominantly AV paced rhythm. No sustained tachycardia or bradycardia arrhythmias noted. Review of systems: Rest review of systems negative. Medications: Medications have been reviewed. Physical Exam Vital Signs: Temp Pulse Resp BP Pulse Ox 97.6 F 60 20 138/64 H 100 03/21/17 07:22 03/21/17 08:43 03/21/17 07:22 03/21/17 07:22 03/21/17 07:22 Intake & Output 03/20/17 03/21/17 03/22/17 06:59 06:59 06:59 Intake Total 918 1386 Output Total 650 1825 Balance 268 -439 Weight 84.1 kg 84.6 kg Exam: GENERAL: well-nourished and in no acute distress. Alert and oriented x3 HEAD: Atraumatic, normocephalic. EYES: Pupils equal round and reactive to light, extraocular movements intact, sclera anicteric, conjunctiva are normal. ENT: TMs normal, nares patent, oropharynx clear without exudates. Moist mucous membranes. No oral ulcerations or bleeding gums noted NECK: supple without lymphadenopathy. Trachea is central. No cervical or axillary lymphadenopathy noted. Carotids are 2+, JVD WNL LUNGS: Respiration seems nonlabored, no significant accessory muscle action noted. Breath sounds clear to auscultation bilaterally and equal noted. No wheezes rales or rhonchi noted. No significant dullness noted on percussion. CHEST: Palpation of the chest wall shows no significant chest wall tenderness. No other significant abnormalities noted. Dialysis catheter noted on the right side. Defibrillator on the left side. HEART: [place] [employer], No PSH, 1/6 LIOR aortic area, 1/6 rea systolic murmur mitral area, no rubs, no gallops. ABDOMEN: Soft, no significant tenderness appreciated, normoactive bowel sounds. No guarding, no rebound. No rigidity noted . No masses appreciated. EXTREMITIES: Pedal pulses are 1-2+, no calf tenderness noted. No clubbing or cyanosis.trace to 1+ pedal edema noted NEUROLOGICAL: Focused neurological exam showed no significant neurologic deficit. Normal speech, no focal weakness appreciated. PSYCH: Normal mood, normal affect. Judgment and insight within normal limits. SKIN: No significant ecchymosis, rash, ulcerations or signs of pruritus noted. MUSCULOSKELETAL EXAM: No significant joint swelling noted. Results Laboratory Results: 03/20/17 05:21 03/20/17 05:21 03/21/17 01:55 Stool Occult Blood NEGATIVE 03/13/17 03/18/17 05:30 05:26 NT-Pro-B Natriuret Pep 73341 H 50805 H EKG Comments: Telemetry strips reviewed. It showed AV paced rhythm. Impressions: Fluoroscopy 03/18/17 00:00 IMPRESSION: IMAGE(S) OBTAINED DURING PROCEDURE. Guidance Fluoroscopy 03/18/17 00:00 IMPRESSION: IMAGE(S) OBTAINED DURING PROCEDURE. Chest X-Ray 03/20/17 07:30 IMPRESSION: No acute cardiopulmonary findings. Mild cardiac enlargement. Assessment & Plan - Diagnosis (1) Acute on chronic systolic heart failure Is this a current diagnosis for this admission?: Yes (2) Cardiac defibrillator in situ Is this a current diagnosis for this admission?: Yes (3) Chronic kidney disease Qualifiers: Chronic kidney disease stage: stage 5, not on chronic dialysis Qualified Code(s): N18.5 - Chronic kidney disease, stage 5 Is this a current diagnosis for this admission?: Yes (4) Hypertension Qualifiers: Hypertension type: essential hypertension Qualified Code(s): I10 - Essential (primary) hypertension Is this a current diagnosis for this admission?: Yes (5) Non-ischemic cardiomyopathy Is this a current diagnosis for this admission?: Yes (6) RLS (restless legs syndrome) Is this a current diagnosis for this admission?: Yes (7) Atrial fibrillation Qualifiers: Atrial fibrillation type: paroxysmal Qualified Code(s): I48.0 - Paroxysmal atrial fibrillation Is this a current diagnosis for this admission?: Yes - Notes Notes: Labs reviewed. Showed hyperkalemia. To have potassium removed on dialysis tomorrow. Continue to observe closely. Did not increase lisinopril for this reason. Blood pressure more stable today. Patient on chronic Coumadin therapy but currently subtherapeutic. Acute on chronic systolic heart failure: Patient has severely depressed LVEF. Patient does have a functioning defibrillator, biventricular in situ. Medical management is being optimized. Patient's medication reviewed. Continue carvedilol therapy. Will gradually increase DAVID inhibitor therapy. Inpatient chest x-ray shows resolution of CHF. Cardiac defibrillator in situ: Seems functioning normally. Patient chest x-ray showed additional LV lead in coronary sinus addition to right atrial and left right ventricular lead. Telemetry strip shows normal functioning. Chronic kidney disease: Stage V or even worse. Nephrology is seen. Stable on dialysis treatment. Tolerating well. Cardiomyopathy: Believed to be non-ischemic. Medical regimen is being optimized. Hypertension: Reasonably well controlled. Blood pressure goal in this patient is 135/85 or less. This was discussed with the patient. Currently blood pressure under reasonable control. Restless leg syndrome: Patient claims to have this diagnosis. Continue on Neurontin 300 mg p.o. nightly, increase as needed. Atrial fibrillation: Paroxysmal. Continue chronic Coumadin therapy. Will be happy to follow patient in the office regarding monitoring Coumadin therapy. - Time Time with patient: 15-25 minutes - CODE STATUS was discussed, patient remains full code. Surrogate decision-maker unchanged. Multiple medical problems were addressed. More than 50% of the time spent coordinating care, discussing management plans with involved caregivers. Management plans discussed with involved personnels. Medical decision making was of moderate to high complexity , patient's has multiple comorbidities.
[2017-03-21] MEDS: FOLIC ACID/VITAMIN B COMP W-C CAPSULE PO SCH (15:52)
[2017-03-21] MEDS: ROPINIROLE HCL 0.25 MG TABLET PO SCH (21:25)
[2017-03-21] MEDS: WARFARIN SODIUM 2 MG TABLET PO SCH (21:25)
[2017-03-21] MEDS: GABAPENTIN 300 MG CAPSULE PO SCH (21:26)
[2017-03-21] MEDS: LATANOPROST 0.005% OPH SOLN 2.5 ML OU SCH (21:26)
[2017-03-21] MEDS: TAMSULOSIN HCL 0.4 MG CAP.SR.24H PO SCH (21:26)
[2017-03-22] MEDS ORDERED: IRON SUCROSE COMPLEX INJ/PF 100 MG/5 ML SDV IV PRN (05:00)
[2017-03-22] MEDS ORDERED: EPOETIN ALFA INJ 20000 UNIT/1 ML VIAL (RENAL) IV PRN (05:00)
[2017-03-22] MEDS ORDERED: EPOETIN ALFA 10,000 UNIT in SYRINGE, DISPOSABLE, 1 EACH IV PRN (05:00)
[2017-03-22] MEDS ORDERED: NORMAL SALINE 1000 ML 1,000 ML IV PRN (05:00)
[2017-03-22 05:22] LABS: ABSOLUTE BASOPHILS # (AUTO) 0.1 10^3/uL (0.0-0.2); ABSOLUTE EOSINOPHILS # (AUTO) 0.5 10^3/uL (0.0-0.6); ABSOLUTE LYMPHOCYTES (AUTO) 0.6 10^3/uL (0.5-4.7); ABSOLUTE MONOCYTES (AUTO) 0.9 10^3/uL (0.1-1.4); ABSOLUTE NEUT (AUTO) 4.5 10^3/uL (1.7-8.2); EOSINOPHILS % (AUTO) 7.1 % (0-6); HEMATOCRIT 26.5 % (37.9-51.0); HEMOGLOBIN 8.9 g/dL (13.5-17.0); HGB HCT DIFFERENCE 0.2; LYMPHOCYTES % (AUTO) 9.5 % (13-45); MEAN CORPUSCULAR HEMOGLOBIN 31.8 pg (27.0-33.4); MEAN CORPUSCULAR HGB CONC 33.7 g/dL (32.0-36.0); MEAN CORPUSCULAR VOLUME 95 fl (80-97); MONOCYTES % (AUTO) 13.2 % (3-13); RED BLOOD COUNT 2.81 10^6/uL (4.35-5.55); RED CELL DISTRIBUTION WIDTH 18.1 % (11.5-14.0); SEGMENTED NEUTROPHILS % (AUTO) 69.2 % (42-78); WHITE BLOOD COUNT 6.5 10^3/uL (4.0-10.5)
[2017-03-22 05:38] LABS: ANION GAP 12 (5-19); BLOOD UREA NITROGEN 67 mg/dL (7-20); CARBON DIOXIDE 27 mmol/L (22-30); CHLORIDE 95 mmol/L (98-107); CREATININE RESULT 5.81 mg/dL (0.52-1.25); GLUCOSE 101 mg/dL (75-110); POTASSIUM 5.4 mmol/L (3.6-5.0); SODIUM 133.9 mmol/L (137-145)
--- NOTE | 2017-03-22 10:30 | PDOC PROGRESS REPORT ---
Subjective Progress Note for:: 03/22/17 Subjective:: reason for visit: f/u volume overload with heart failure, ESRD starting HD this admit, hypoxia hosptial course: per other's notes - "This is a follow-up visit for end-stage renal disease and acute on chronic systolic heart failure. The patient was admitted 7 days ago. He came in as a transfer from [facility]. He was initially admitted there for volume overload heart failure. There he was evaluated by sap basis and cement block maker and he was felt to need to transition to dialysis. Therefore he was transferred referred here for further management. Since the patient has been here he is been diuresed quite aggressively in addition to this he initially had a temporary catheter placed in the femoral region. This was done because his INR was still therapeutic. The patient underwent PermCath placement today and with discontinuation of the temporary catheter. His warfarin will need to be restarted tomorrow. He has had 3 sessions of hemodialysis as tolerated this well. While here he is complained of restless legs and was started on Requip which has helped tremendously. Cardiology is following as well as nephrology. At this point the patient is doing quite well and we can start planning to transition him to [place]. The patient has been working with physical therapy. He is from [place] and discharge planning is trying to get him placed in [place]. Arrangements have already been made with [facility] for outpatient dialysis in [place]. The patient feels much better this morning. He states that his legs feel better after having the Requip again last night. He has no chest pain or shortness of breath." It has come to my attention there is some confusion regarding discharge planning for this patient for which I am blamed. Let me make this perfectly clear, I have no vested interest in where the patient chooses to rehab whether at home or in a facility. It is my opinion, as well as PT, that he will do better with a brief rehab stay in a professionally monitored setting thereby decreasing his likelihood of readmission and speeding his recovery but if he and his daughter prefer to take him home with homehealth and nursing that is certainly their prerogative and I will not/do not oppose. In fact, I will do anything I can to facilitate and support his decision either way. As it is, he cannot discharge anywhere until outpatient dialysis services are secured and [facility] reports those arrangements are still very much pending. Mr. Nash himself mentioned going to rehab when I asked him about his discharge plans, so I don't understand where all the angst originated. I informed him that he is medically stable for discharge as long as his blood pressure stabilizes after dialysis. It seems that his intake appt with [facility] in [place] cannot occur until Saturday therefore he will need to stay for dialysis on Saturday, possible d/c home Saturday with f/u on Saturday to initiate HD on a schedule thereafter. he successfully underwent his first dialysis session Saturday; had some nausea yesterday but overall feels better; still wearing supplemental O2 but only 2L and sats 100% so he may be able to wean off. denies chest pain, wheezing, cough with phlegm, n/v/d. ROS: all systems reviewed, see above, remaining systems negative Physical Exam Vital Signs: Temp Pulse Resp BP Pulse Ox 98.1 F 64 20 130/76 H 96 03/22/17 04:00 03/22/17 04:00 03/22/17 04:00 03/22/17 04:00 03/22/17 04:00 Intake & Output 03/21/17 03/22/17 03/23/17 06:59 06:59 06:59 Intake Total 1386 1446 Output Total 1825 1050 Balance -439 396 Weight 84.6 kg 87 kg General appearance: PRESENT: hard of hearing, well-developed, well-nourished Head exam: PRESENT: atraumatic, normocephalic Eye exam: PRESENT: EOMI. ABSENT: scleral icterus Mouth exam: PRESENT: moist, neck supple Neck exam: PRESENT: full ROM. ABSENT: tracheal deviation Respiratory exam: PRESENT: crackles - bilat bases, unlabored. ABSENT: accessory muscle use, rhonchi, wheezes Cardiovascular exam: PRESENT: RRR, systolic murmur Pulses: PRESENT: normal radial pulses, normal dorsalis pedis pul GI/Abdominal exam: PRESENT: normal bowel sounds, soft. ABSENT: guarding, tenderness Extremities exam: PRESENT: pedal edema - slightly worse at the ankles today ABSENT: calf tenderness Musculoskeletal exam: PRESENT: full ROM. ABSENT: tenderness Neurological exam: PRESENT: alert, awake, oriented to person, oriented to place , oriented to time Psychiatric exam: PRESENT: appropriate affect, normal mood Skin exam: PRESENT: dry, warm Results Laboratory Results: 03/22/17 05:01 03/22/17 05:01 03/22/17 03/22/17 05:01 05:01 WBC 6.5 RBC 2.81 L Hgb 8.9 L Hct 26.5 L MCV 95 MCH 31.8 MCHC 33.7 RDW 18.1 H Plt Count 125 L Seg Neutrophils % 69.2 Lymphocytes % 9.5 L Monocytes % 13.2 H Eosinophils % 7.1 H Basophils % 1.0 Absolute Neutrophils 4.5 Absolute Lymphocytes 0.6 Absolute Monocytes 0.9 Absolute Eosinophils 0.5 Absolute Basophils 0.1 Sodium 133.9 L Potassium 5.4 H Chloride 95 L Carbon Dioxide 27 Anion Gap 12 BUN 67 H Creatinine 5.81 H Est GFR ( Amer) 11 L Est GFR (Non-Af Amer) 9 L Glucose 101 Calcium 9.0 03/13/17 03/18/17 05:30 05:26 NT-Pro-B Natriuret Pep 22005 H 09309 H Assessment & Plan - Diagnosis (1) Cardiorenal syndrome with renal failure Is this a current diagnosis for this admission?: Yes (2) Acute on chronic systolic heart failure Is this a current diagnosis for this admission?: Yes (3) Acute respiratory failure with hypoxemia Is this a current diagnosis for this admission?: Yes (4) Anemia in chronic kidney disease (CKD) Qualifiers: Chronic kidney disease stage: on chronic dialysis Qualified Code(s) : N18.6 - End stage renal disease; D63.1 - Anemia in chronic kidney disease; Z99.2 - Dependence on renal dialysis Is this a current diagnosis for this admission?: Yes (5) Atrial fibrillation Qualifiers: Atrial fibrillation type: paroxysmal Qualified Code(s): I48.0 - Paroxysmal atrial fibrillation Is this a current diagnosis for this admission?: Yes (6) COPD (chronic obstructive pulmonary disease) Is this a current diagnosis for this admission?: No (7) Cardiac defibrillator in situ Is this a current diagnosis for this admission?: Yes (8) RLS (restless legs syndrome) Is this a current diagnosis for this admission?: Yes (9) Hypertension Qualifiers: Hypertension type: essential hypertension Qualified Code(s): I10 - Essential (primary) hypertension Is this a current diagnosis for this admission?: Yes - Time Time Spent with patient: 15-24 minutes Anticipated discharge: Home with Homehealth Within: within 24 hours
[2017-03-22] MEDS: HEPARIN SOD (PORCINE) 1,000 UNIT/ML 10 ML VIAL IV PRN (11:18)
--- NOTE | 2017-03-22 11:46 | PDOC PROGRESS REPORT ---
Subjective Progress Note for:: 03/22/17 Subjective:: Patient seen on dialysis today. Plan is to remove 2.5 L of fluid as patient is noted to have some pedal edema and some weight. Patient is denying any significant complaints. Patient had problems with low blood pressure improved in the last 24 hours. This morning his blood pressure is stable. He is denying any chest pain or shortness of breath. Patient seems to be doing better with gradual improvement. Pt is denying any chest arm or neck discomfort. Patient denying any PND, orthopnea. Patient denied any sustained palpitations, dizziness, syncope, near syncope. Patient denying any fever chills. Patient denying any other significant discomfort. Patient noted to have predominantly AV paced rhythm. No sustained tachycardia or bradycardia arrhythmias noted. Review of systems: Rest review of systems negative. Medications: Medications have been reviewed. Physical Exam Vital Signs: Temp Pulse Resp BP Pulse Ox 98.1 F 64 20 130/76 H 96 03/22/17 04:00 03/22/17 04:00 03/22/17 04:00 03/22/17 04:00 03/22/17 04:00 Intake & Output 03/21/17 03/22/17 03/23/17 06:59 06:59 06:59 Intake Total 1386 1446 Output Total 1825 1050 2900 Balance -439 396 -2900 Weight 84.6 kg 87 kg Exam: GENERAL: well-nourished and in no acute distress. Alert and oriented x3 HEAD: Atraumatic, normocephalic. EYES: Pupils equal round and reactive to light, extraocular movements intact, sclera anicteric, conjunctiva are normal. ENT: TMs normal, nares patent, oropharynx clear without exudates. Moist mucous membranes. No oral ulcerations or bleeding gums noted NECK: supple without lymphadenopathy. Trachea is central. No cervical or axillary lymphadenopathy noted. Carotids are 2+, JVD WNL LUNGS: Respiration seems nonlabored, no significant accessory muscle action noted. Breath sounds clear to auscultation bilaterally and equal noted. No wheezes rales or rhonchi noted. No significant dullness noted on percussion. CHEST: Palpation of the chest wall shows no significant chest wall tenderness. No other significant abnormalities noted. Defibrillator noted on the left side and dialysis catheter on the right side. 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 ABDOMEN: Soft, no significant tenderness appreciated, normoactive bowel sounds. No guarding, no rebound. No rigidity noted . No masses appreciated. EXTREMITIES: Pedal pulses are 1-2+, no calf tenderness noted. No clubbing or cyanosis.1+ pedal edema noted NEUROLOGICAL: Focused neurological exam showed no significant neurologic deficit. Normal speech, no focal weakness appreciated. PSYCH: Normal mood, normal affect. Judgment and insight within normal limits. SKIN: No significant ecchymosis, rash, ulcerations or signs of pruritus noted. MUSCULOSKELETAL EXAM: No significant joint swelling noted. Results Laboratory Results: 03/22/17 05:01 03/22/17 05:01 03/22/17 03/22/17 05:01 05:01 WBC 6.5 RBC 2.81 L Hgb 8.9 L Hct 26.5 L MCV 95 MCH 31.8 MCHC 33.7 RDW 18.1 H Plt Count 125 L Seg Neutrophils % 69.2 Lymphocytes % 9.5 L Monocytes % 13.2 H Eosinophils % 7.1 H Basophils % 1.0 Absolute Neutrophils 4.5 Absolute Lymphocytes 0.6 Absolute Monocytes 0.9 Absolute Eosinophils 0.5 Absolute Basophils 0.1 Sodium 133.9 L Potassium 5.4 H Chloride 95 L Carbon Dioxide 27 Anion Gap 12 BUN 67 H Creatinine 5.81 H Est GFR ( Amer) 11 L Est GFR (Non-Af Amer) 9 L Glucose 101 Calcium 9.0 03/13/17 03/18/17 05:30 05:26 NT-Pro-B Natriuret Pep 24376 H 31031 H Impressions: Fluoroscopy 03/18/17 00:00 IMPRESSION: IMAGE(S) OBTAINED DURING PROCEDURE. Guidance Fluoroscopy 03/18/17 00:00 IMPRESSION: IMAGE(S) OBTAINED DURING PROCEDURE. Chest X-Ray 03/20/17 07:30 IMPRESSION: No acute cardiopulmonary findings. Mild cardiac enlargement. Assessment & Plan - Diagnosis (1) Acute on chronic systolic heart failure Is this a current diagnosis for this admission?: Yes (2) Cardiac defibrillator in situ Is this a current diagnosis for this admission?: Yes (3) Chronic kidney disease Qualifiers: Chronic kidney disease stage: stage 5, not on chronic dialysis Qualified Code(s): N18.5 - Chronic kidney disease, stage 5 Is this a current diagnosis for this admission?: Yes (4) Hypertension Qualifiers: Hypertension type: essential hypertension Qualified Code(s): I10 - Essential (primary) hypertension Is this a current diagnosis for this admission?: Yes (5) Non-ischemic cardiomyopathy Is this a current diagnosis for this admission?: Yes (6) RLS (restless legs syndrome) Is this a current diagnosis for this admission?: Yes (7) Atrial fibrillation Qualifiers: Atrial fibrillation type: paroxysmal Qualified Code(s): I48.0 - Paroxysmal atrial fibrillation Is this a current diagnosis for this admission?: Yes - Notes Notes: Labs reviewed. Showed hyperkalemia. To have potassium removed on dialysis with 2.5 mg of fluid removal. Continue to observe closely. Did not increase lisinopril for this reason. Blood pressure more stable today. Patient on chronic Coumadin therapy but currently subtherapeutic. Acute on chronic systolic heart failure: Patient has severely depressed LVEF. Patient does have a functioning defibrillator, biventricular in situ. Medical management is being optimized. Patient's medication reviewed. Continue carvedilol therapy. Will gradually increase DAVID inhibitor therapy. Inpatient chest x-ray shows resolution of CHF. Cardiac defibrillator in situ: Seems functioning normally. Patient chest x-ray showed additional LV lead in coronary sinus addition to right atrial and left right ventricular lead. Telemetry strip shows normal functioning. Chronic kidney disease: Stage V or even worse. Nephrology is seen. Stable on dialysis treatment. Tolerating well. Cardiomyopathy: Believed to be non-ischemic. Medical regimen is being optimized. Consider increasing lisinopril to maximum of 40 mg daily gradually as tolerated. Hypertension: Reasonably well controlled. Blood pressure goal in this patient is 135/85 or less. This was discussed with the patient. Currently blood pressure under reasonable control. Restless leg syndrome: Patient claims to have this diagnosis. Continue on Neurontin 300 mg p.o. nightly, increase as needed. Atrial fibrillation: Paroxysmal. Continue chronic Coumadin therapy. Will be happy to follow patient in the office regarding monitoring Coumadin therapy. - Time Time with patient: 15-25 minutes - CODE STATUS was discussed, patient remains full code. Surrogate decision-maker unchanged. Multiple medical problems were addressed. More than 50% of the time spent coordinating care, discussing management plans with involved caregivers. Management plans discussed with involved personnels. Medical decision making was of moderate to high complexity , patient's has multiple comorbidities. Medications reviewed and adjusted accordingly: Yes
[2017-03-22] MEDS: ISOSORBIDE MONONITRATE 30 MG TAB.ER.24H PO SCH (11:57)
[2017-03-22] MEDS: LISINOPRIL 5 MG TABLET PO SCH ×2 (11:58→21:08)
[2017-03-22] MEDS: AMIODARONE HCL 200 MG TABLET PO SCH (11:59)
[2017-03-22] MEDS: CARVEDILOL 12.5 MG TABLET PO SCH ×2 (12:00→21:08)
[2017-03-22] MEDS: CALCIUM ACETATE 667 MG CAPSULE PO SCH ×2 (13:03→17:37)
[2017-03-22] MEDS: FOLIC ACID/VITAMIN B COMP W-C CAPSULE PO SCH (15:07)
--- NOTE | 2017-03-22 15:52 | PDOC PROGRESS REPORT ---
Subjective Progress Note for:: 03/22/17 Subjective:: I saw the patient during dialysis this morning at around 8:25 AM. Patient has been doing well and denies any shortness of breath no chest pain. He is sleeping better. Physical Exam Vital Signs: Temp Pulse Resp BP Pulse Ox 97.7 F 60 19 121/48 L 93 03/22/17 11:39 03/22/17 11:39 03/22/17 11:39 03/22/17 11:39 03/22/17 11:39 Intake & Output 03/21/17 03/22/17 03/23/17 06:59 06:59 06:59 Intake Total 1386 1446 476 Output Total 1825 1050 2900 Balance -439 396 -8634 Weight 84.6 kg 87 kg Vitals during dialysis this morning: Blood pressure 123/59, heart rate of 60, blood flow rate of 300 mL/min, dialysate flow rate of 600 mL/min. Exam: General appearance: PRESENT: no acute distress, cooperative, well-developed, well-nourished Head exam: PRESENT: atraumatic, normocephalic Eye exam: PRESENT: conjunctiva pale, PERRLA. ABSENT: scleral icterus Neck exam: ABSENT: JVD Respiratory exam: PRESENT: Diminished breath sounds. ABSENT: crackles, rales, rhonchi, unlabored, wheezes Cardiovascular exam: PRESENT: Regular rate rhythm -+S1, +S2. Grade 2/6 systolic ejection murmur ABSENT: diastolic murmur GI/Abdominal exam: PRESENT: normal bowel sounds, soft. ABSENT: guarding, mass, tenderness Extremities exam: Bilateral lower extremity trace pitting edema Neurological exam: PRESENT: alert, awake, oriented to person, place and time. Skin exam: PRESENT: dry, warm, Results Laboratory Results: 03/22/17 05:01 03/22/17 05:01 03/22/17 03/22/17 05:01 05:01 WBC 6.5 RBC 2.81 L Hgb 8.9 L Hct 26.5 L MCV 95 MCH 31.8 MCHC 33.7 RDW 18.1 H Plt Count 125 L Seg Neutrophils % 69.2 Lymphocytes % 9.5 L Monocytes % 13.2 H Eosinophils % 7.1 H Basophils % 1.0 Absolute Neutrophils 4.5 Absolute Lymphocytes 0.6 Absolute Monocytes 0.9 Absolute Eosinophils 0.5 Absolute Basophils 0.1 Sodium 133.9 L Potassium 5.4 H Chloride 95 L Carbon Dioxide 27 Anion Gap 12 BUN 67 H Creatinine 5.81 H Est GFR ( Amer) 11 L Est GFR (Non-Af Amer) 9 L Glucose 101 Calcium 9.0 03/13/17 03/18/17 05:30 05:26 NT-Pro-B Natriuret Pep 86632 H 54188 H Impressions: Fluoroscopy 03/18/17 00:00 IMPRESSION: IMAGE(S) OBTAINED DURING PROCEDURE. Guidance Fluoroscopy 03/18/17 00:00 IMPRESSION: IMAGE(S) OBTAINED DURING PROCEDURE. Chest X-Ray 03/20/17 07:30 IMPRESSION: No acute cardiopulmonary findings. Mild cardiac enlargement. Assessment & Plan - Diagnosis (1) End stage renal disease on dialysis Is this a current diagnosis for this admission?: YesPlan: This is due to chronic cardiorenal syndrome. Patient has been tolerating dialysis well he is here in the hospital. We did dialysis today for 3 hours, using the patient's PermCath, with 2 potassium bath, blood flow rate of 300 mL per minute, dialysate flow rate of 600 mL per minute, ultrafiltration 2-3 l, no heparin and Procrit with 10,000 units during dialysis intravenously. Per discharge planning patient is already accepted at [facility] in [place] to continue his chronic dialysis treatment as an outpatient. 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 From my standpoint if everything is already arranged , the patient is stable enough to be discharged home any time from now. (2) Cardiorenal syndrome with renal failure Is this a current diagnosis for this admission?: Yes (3) Hypotension Is this a current diagnosis for this admission?: YesPlan: Improved with adjustment of blood pressure medications. (4) Anemia in chronic kidney disease (CKD) Qualifiers: Chronic kidney disease stage: on chronic dialysis Qualified Code(s) : N18.6 - End stage renal disease; D63.1 - Anemia in chronic kidney disease; Z99.2 - Dependence on renal dialysis Is this a current diagnosis for this admission?: YesPlan: We will give Epogen and IV Venofer during dialysis treatment. (5) Iron deficiency anemia Is this a current diagnosis for this admission?: Yes (6) Hyperphosphatemia Is this a current diagnosis for this admission?: YesPlan: Start PhosLo 667 mg 2 capsules with meals. (7) Non-ischemic cardiomyopathy Is this a current diagnosis for this admission?: Yes (8) Acute on chronic systolic heart failure Is this a current diagnosis for this admission?: Yes (9) RLS (restless legs syndrome) Is this a current diagnosis for this admission?: Yes - Time Time with patient: 15-25 minutes
[2017-03-22] MEDS: ROPINIROLE HCL 0.25 MG TABLET PO SCH (21:08)
[2017-03-22] MEDS: WARFARIN SODIUM 2 MG TABLET PO SCH (21:08)
[2017-03-22] MEDS: TAMSULOSIN HCL 0.4 MG CAP.SR.24H PO SCH (21:08)
[2017-03-22] MEDS: LATANOPROST 0.005% OPH SOLN 2.5 ML OU SCH (21:09)
[2017-03-22] MEDS: GABAPENTIN 300 MG CAPSULE PO SCH (21:11)
[2017-03-23 05:13] LABS: PROTHROMBIN TIME 15.4 SEC (11.4-15.4)
[2017-03-23] MEDS: ISOSORBIDE MONONITRATE 30 MG TAB.ER.24H PO SCH (08:23)
[2017-03-23] MEDS: CALCIUM ACETATE 667 MG CAPSULE PO SCH ×2 (08:23→13:01)
[2017-03-23] MEDS: LISINOPRIL 5 MG TABLET PO SCH (08:23)
[2017-03-23] MEDS: AMIODARONE HCL 200 MG TABLET PO SCH (08:24)
[2017-03-23] MEDS: CARVEDILOL 12.5 MG TABLET PO SCH (08:24)
--- NOTE | 2017-03-23 10:30 | Progress Note ---
Provider Note Provider Note: PATIENT REQUIRES HOME O2 AT 2L/MIN BY NASAL CANNULA DUE TO SHORTNESS OF BREATH CAUSED BY COPD
--- NOTE | 2017-03-23 11:52 | PDOC DISCHARGE SUMMARY ---
General - Admit/Disc Date/PCP Admission Date/Primary Care Provider: 03/12/17 17:48 Discharge Date: 03/23/17 - Discharge Diagnosis (1) Cardiorenal syndrome with renal failure Is this a current diagnosis for this admission?: Yes (2) Acute on chronic systolic heart failure Is this a current diagnosis for this admission?: Yes (3) Acute respiratory failure with hypoxemia Is this a current diagnosis for this admission?: Yes (4) Anemia in chronic kidney disease (CKD) Is this a current diagnosis for this admission?: Yes (5) Atrial fibrillation Is this a current diagnosis for this admission?: Yes (6) COPD (chronic obstructive pulmonary disease) Is this a current diagnosis for this admission?: No (7) Cardiac defibrillator in situ Is this a current diagnosis for this admission?: Yes (8) RLS (restless legs syndrome) Is this a current diagnosis for this admission?: Yes (9) Hypertension Is this a current diagnosis for this admission?: Yes - Additional Information Resuscitation Status: Full Code Discharge Diet: Cardiac Discharge Activity: Activity As Tolerated, Balance Activity w/Rest, Weigh Daily Home Medications: Amiodarone HCl [Cordarone 200 mg Tablet] 2 tab PO DAILY 03/12/17 Latanoprost [Xalatan 0.005% Oph Soln 2.5 ml] 1 drop OU DAILY 03/12/17 Pravastatin Sodium [Pravachol] 40 mg PO QHS 03/12/17 Sodium Bicarbonate [Sodium Bicarbonate 650 mg Tablet] 650 mg PO AC 03/12/17 Tamsulosin HCl [Flomax 0.4 mg Cap.sr] 0.4 mg PO QHS 03/12/17 Warfarin Sodium [Coumadin 2 mg Tablet] 2 mg PO MO@1000 03/12/17 Warfarin Sodium [Coumadin 2 mg Tablet] 4 mg PO DAILY 03/12/17 Calcium Acetate [Phoslo 667 mg Capsule] 1,334 mg PO MEALS 30 Days 03/23/17 Calcium Carbonate [Tums Chewable 500 mg Tab.chew] 500 mg PO Q6HP PRN tab.chew 03/23/17 Carvedilol [Coreg 12.5 mg Tablet] 12.5 mg PO Q12 #60 tablet 03/23/17 Folic Acid/Vitamin B Comp W-C [Nephrocaps Multiple Vitamin Capsule] 1 cap PO ACSUPPER #30 capsule 03/23/17 Gabapentin [Neurontin 300 mg Capsule] 300 mg PO DAILY@2000 #30 capsule 03/23/17 Isosorbide Mononitrate [Imdur 30 mg Tablet.er] 30 mg PO DAILY #30 tab.er.24h Lisinopril [Prinivil 5 mg Tablet] 5 mg PO Q12 #60 tablet 03/23/17 Ropinirole HCl [Requip 0.25 mg Tablet] 0.25 mg PO QHS #30 tablet 03/23/17 History of Present Illness History of Present Illness: FANNIE NASH is a 82 year old male Hospital Course Hospital Course: This is a 82-year-old white male with a past medical history significant for CKD stage IV, COPD, hypertension, dyslipidemia A. fib and CHF with last known EF of 24% who presented to an outside hospital with one-week history of shortness of breath. The patient states that his symptoms began about a week ago and he noticed increased fluid in his lower extremities and increased abdominal girth. His shortness of breath became progressively worse to the extent that he could not handle it anymore and he presented to [facility]. patient also describes inability to lay flat as well as development of chest discomfort in the last 24 hours. He describes a left-sided chest pain that is sharp and nonradiating. He rates it at a 5 out of 10. He received nitroglycerin at the outside hospital which improved his discomfort. He reports feeling very tired and having had minimal sleep over the last day or 2. At the outside hospital the patient received nitroglycerin for his chest discomfort. He received 80 mg of Lasix IV and nitro drip to reduce an elevated blood pressure. He received a chest x-ray which showed no focal consolidations , pneumothorax or pleural effusion. AICD was noted cardiac silhouette was deemed to be prominent. There was also noted to be an indistinct pulmonary vasculature and reticular markings in the lung bases which are associated with fluid overload. Findings were consistent with congestive heart failure. BNP done was 18,000 and creatinine was 4.3. The patient reports that his baseline creatinine is usually between 3.5 and 4. INR was noted to be elevated at 3.69. EKG showed a paced rhythm at 60 bpm. The patient was transferred here for further consideration for dialysis. The patient has been told in the past that he was approaching the need for dialysis by his physicians in [facility]. The patient usually gets his care from [facility] and is in the process of transferring down here to be closer to his daughter. He has a nephrology follow -up scheduled at the [facility] for the beginning of March. He reports increased difficulty in initiating his urine stream but denies any decreased urinary output. In fact the patient usually takes Lasix 80 mg in the morning and an extra dose if he feels that he is gaining weight. He reports that he does not add sodium to his food and that he drinks about 1500 cc of fluid each day. He came in as a transfer from [facility]. He was initially admitted there for volume overload heart failure. There he was evaluated by housing director and fashion editor and he was felt to need to transition to dialysis. Therefore he was transferred referred here for further management. Since the patient has been here he is been diuresed quite aggressively in addition to this he initially had a temporary catheter placed in the femoral region. This was done because his INR was still therapeutic. The patient underwent PermCath placement today and with discontinuation of the temporary catheter. His warfarin will need to be restarted tomorrow. He has had 3 sessions of hemodialysis as tolerated this well. While here he is complained of restless legs and was started on Requip which has helped tremendously. Cardiology is following as well as nephrology. At this point the patient is doing quite well and we can start planning to transition him to [place]. The patient has been working with physical therapy. He is from [place] and discharge planning is trying to get him placed in [place]. Arrangements have already been made with [facility] for outpatient dialysis in [place]. The patient feels much better this morning. He states that his legs feel better after having the Requip again last night. He has no chest pain or shortness of breath." It has come to my attention there is some confusion regarding discharge planning for this patient for which I am blamed. Let me make this perfectly clear, I have no vested interest in where the patient chooses to rehab whether at home or in a facility. It is my opinion, as well as PT, that he will do better with a brief rehab stay in a professionally monitored setting thereby decreasing his likelihood of readmission and speeding his recovery but if he and his daughter prefer to take him home with homehealth and nursing that is certainly their prerogative and I will not/do not oppose. In fact, I will do anything I can to facilitate and support his decision either way. As it is, he cannot discharge anywhere until outpatient dialysis services are secured and [place] Machinima reports those arrangements are still very much pending. Mr. Nash himself mentioned going to rehab when I asked him about his discharge plans, so I don't understand where all the angst originated. I informed him that he is medically stable for discharge as long as his blood pressure stabilizes after dialysis. It seems that his intake appt with [facility] in [place] cannot occur until Saturday therefore he will need to stay for dialysis on Saturday, possible d/c home Saturday with f/u on Saturday to initiate HD on a schedule thereafter. he successfully underwent his first dialysis session Saturday; had some nausea yesterday but overall feels better; still wearing supplemental O2 but only 2L and sats 100% so he may be able to wean off. denies chest pain, wheezing, cough with phlegm, n/v/d. I walked him from the bed to the door and by the time we got there he was breathless and dropped his sat to 87% on RA. PATIENT REQUIRES HOME O2 AT 2L/ MIN BY NASAL CANNULA DUE TO SHORTNESS OF BREATH CAUSED BY COPD. Arrangements made for intake visit with fashion editor on 03/25 before starting HD at [facility] on 03/26. he finished HD yesterday without difficulty and actually rested last night very well. he is in good spirits this morning with plans in place for him to go home. [facility] so any home health and DME will need to be arranged with their blessings. Rx for home O2 provided, he was also counseled that he could pay out of pocket in the short term should [facility] delay their assessment and approval. He is stable for d/c home at this time, neither he nor his daughter express any concerns to me about going home today. Physical Exam Vital Signs: Temp Pulse Resp BP Pulse Ox 98.0 F 60 20 139/55 H 100 03/23/17 07:12 03/23/17 07:12 03/23/17 07:12 03/23/17 07:12 03/23/17 07:12 Intake & Output 03/22/17 03/23/17 03/24/17 06:59 06:59 06:59 Intake Total 1446 1932 Output Total 1050 4925 Balance 396 -2993 Weight 87 kg 87.2 kg General appearance: PRESENT: no acute distress, hard of hearing, well-developed , well-nourished Mouth exam: PRESENT: moist, neck supple Respiratory exam: PRESENT: clear to auscultation pee Pulses: PRESENT: normal radial pulses, normal dorsalis pedis pul Extremities exam: ABSENT: pedal edema - trace Musculoskeletal exam: PRESENT: ambulatory - with assistance Neurological exam: PRESENT: alert, awake, oriented to person, oriented to place , oriented to time, oriented to situation Results Laboratory Results: 03/22/17 05:01 03/22/17 05:01 03/13/17 03/18/17 05:30 05:26 NT-Pro-B Natriuret Pep 51759 H 23909 H Impressions: Fluoroscopy 03/18/17 00:00 IMPRESSION: IMAGE(S) OBTAINED DURING PROCEDURE. Guidance Fluoroscopy 03/18/17 00:00 IMPRESSION: IMAGE(S) OBTAINED DURING PROCEDURE. Chest X-Ray 03/20/17 07:30 IMPRESSION: No acute cardiopulmonary findings. Mild cardiac enlargement. Qualifiers PATEINT BEING DISCHARGED WITH ANY OF THE FOLLOWING DIAGNOSIS?: Heart Failure VTE patient discharged on overlapping Therapy?: No HF Pt being discharged on ACEI for LVEF less than 40%?: Yes HF Pt being discharged on ARBS for LVEF less than 40%?: Yes HF Pt with Afib discharged with Warfarin?: Yes HF Pt discharged on evidence-based Beta Mya:: Yes Plan Discharge Plan: home with with outpt f/u via [facility]; return to the ED for worsening condition ; f/u with nephro as arranged
--- NOTE | 2017-03-23 13:32 | PDOC PROGRESS REPORT ---
Subjective Progress Note for:: 03/23/17 Subjective:: Patient is denying any significant complaints. Patient seems to be doing better with gradual improvement. Pt is denying any chest arm or neck discomfort. Patient denying any PND, orthopnea. Patient denied any sustained palpitations, dizziness, syncope, near syncope. Patient denying any fever chills. Patient denying any other significant discomfort. Patient being discharged home with home visiting nurse. Patient noted to have predominantly AV paced rhythm. No sustained tachycardia or bradycardia arrhythmias noted. Review of systems: Rest review of systems negative. Medications: Medications have been reviewed. Physical Exam Vital Signs: Temp Pulse Resp BP Pulse Ox 98.2 F 59 L 20 109/59 L 96 03/23/17 11:34 03/23/17 11:34 03/23/17 11:34 03/23/17 11:34 03/23/17 11:34 Intake & Output 03/22/17 03/23/17 03/24/17 06:59 06:59 06:59 Intake Total 1446 1932 355 Output Total 1050 4925 100 Balance 396 -2993 255 Weight 87 kg 87.2 kg Exam: GENERAL: well-nourished and in no acute distress. Alert and oriented x3 HEAD: Atraumatic, normocephalic. EYES: Pupils equal round and reactive to light, extraocular movements intact, sclera anicteric, conjunctiva are normal. ENT: TMs normal, nares patent, oropharynx clear without exudates. Moist mucous membranes. No oral ulcerations or bleeding gums noted NECK: supple without lymphadenopathy. Trachea is central. No cervical or axillary lymphadenopathy noted. Carotids are 2+, JVD WNL LUNGS: Respiration seems nonlabored, no significant accessory muscle action noted. Breath sounds clear to auscultation bilaterally and equal noted. No wheezes rales or rhonchi noted. No significant dullness noted on percussion. CHEST: Palpation of the chest wall shows no significant chest wall tenderness. No other significant abnormalities noted. Defibrillator on the left side chest and dialysis catheter in the right subclavian vein HEART: [place] ON SITE SOIL EVALUATOR, No PSH, 1/6 LIOR aortic area, 1/6 rea systolic murmur mitral area, no rubs, no gallops. ABDOMEN: Soft, no significant tenderness appreciated, normoactive bowel sounds. No guarding, no rebound. No rigidity noted . No masses appreciated. EXTREMITIES: Pedal pulses are 1-2+, no calf tenderness noted. No clubbing or cyanosis.trace to 1+ pedal edema noted NEUROLOGICAL: Focused neurological exam showed no significant neurologic deficit. Normal speech, no focal weakness appreciated. PSYCH: Normal mood, normal affect. Judgment and insight within normal limits. SKIN: No significant ecchymosis, rash, ulcerations or signs of pruritus noted. MUSCULOSKELETAL EXAM: No significant joint swelling noted. Results Laboratory Results: 03/22/17 05:01 03/22/17 05:01 03/13/17 03/18/17 05:30 05:26 NT-Pro-B Natriuret Pep 90423 H 26297 H EKG Comments: Telemetry strip shows ventricular paced rhythm. No sustained tachycardia and bradycardia arrhythmias were noted. Impressions: Fluoroscopy 03/18/17 00:00 IMPRESSION: IMAGE(S) OBTAINED DURING PROCEDURE. Guidance Fluoroscopy 03/18/17 00:00 IMPRESSION: IMAGE(S) OBTAINED DURING PROCEDURE. Chest X-Ray 03/20/17 07:30 IMPRESSION: No acute cardiopulmonary findings. Mild cardiac enlargement. Assessment & Plan - Diagnosis (1) Acute on chronic systolic heart failure Is this a current diagnosis for this admission?: Yes (2) Cardiac defibrillator in situ Is this a current diagnosis for this admission?: Yes (3) Chronic kidney disease Qualifiers: Chronic kidney disease stage: stage 5, not on chronic dialysis Qualified Code(s): N18.5 - Chronic kidney disease, stage 5 Is this a current diagnosis for this admission?: Yes (4) Hypertension Qualifiers: Hypertension type: essential hypertension Qualified Code(s): I10 - Essential (primary) hypertension Is this a current diagnosis for this admission?: Yes (5) Non-ischemic cardiomyopathy Is this a current diagnosis for this admission?: Yes (6) RLS (restless legs syndrome) Is this a current diagnosis for this admission?: Yes (7) Atrial fibrillation Qualifiers: Atrial fibrillation type: paroxysmal Qualified Code(s): I48.0 - Paroxysmal atrial fibrillation Is this a current diagnosis for this admission?: Yes - Notes Notes: Acute on chronic systolic heart failure: Patient has severely depressed LVEF. Patient does have a functioning defibrillator, biventricular in situ. Medical management is being optimized. Patient's medication reviewed. Continue carvedilol therapy. Continue current dose of DAVID inhibitor therapy. Inpatient chest x-ray shows resolution of CHF. Cardiac defibrillator in situ: Seems functioning normally. Patient chest x-ray showed additional LV lead in coronary sinus addition to right atrial and left right ventricular lead. Telemetry strip shows normal functioning. Chronic kidney disease: Stage V or even worse. Nephrology is seen. Stable on dialysis treatment. Tolerating well. Cardiomyopathy: Believed to be non-ischemic. Medical regimen is being optimized. Consider increasing lisinopril to maximum of 40 mg daily gradually as tolerated. Hypertension: Reasonably well controlled. Blood pressure goal in this patient is 135/85 or less. This was discussed with the patient. Currently blood pressure under reasonable control. Restless leg syndrome: Patient claims to have this diagnosis. Continue on Neurontin 300 mg p.o. nightly, increase as needed. Atrial fibrillation: Paroxysmal. Continue chronic Coumadin therapy. Will be happy to follow patient in the office regarding monitoring Coumadin therapy. - Time Time with patient: 15-25 minutes - CODE STATUS was discussed, patient remains full code. Surrogate decision-maker unchanged. Multiple medical problems were addressed. More than 50% of the time spent coordinating care, discussing management plans with involved caregivers. Management plans discussed with involved personnels. Medical decision making was of moderate to high complexity , patient's has multiple comorbidities. Medications reviewed and adjusted accordingly: Yes
[2017-03-23 14:56] VITALS: BP 113/53
== END 2017-03-23 16:20 | disposition home or self-care (01) | DRG 189 ==
LOC: 3W 17:48
PROVIDERS: ADMIT Hospitalist; ATTEND Hospitalist
PROC: 06H033Z Insertion of Infusion Device into Inferior Vena Cava, Percutaneous Approach (ICD-10-PCS; principal; 2017-03-13)
PROC: B549ZZA Ultrasonography of Inferior Vena Cava, Guidance (ICD-10-PCS; 2017-03-13)
PROC: 06HY33Z Insertion of Infusion Device into Lower Vein, Percutaneous Approach (ICD-10-PCS; 2017-03-13)
PROC: 5A1D00Z (ICD-10-PCS; 2017-03-13)
PROC: 5A1D00Z (ICD-10-PCS; 2017-03-15)
PROC: 5A1D00Z (ICD-10-PCS; 2017-03-18)
PROC: 5A1D00Z (ICD-10-PCS; 2017-03-20)
PROC: 5A1D00Z (ICD-10-PCS; 2017-03-22)
DX: J96.01 Acute respiratory failure with hypoxia (principal); I50.23 Acute on chronic systolic (congestive) heart failure; N18.6 End stage renal disease; I13.0 Hypertensive heart and chronic kidney disease with heart failure and stage 1 through stage 4 chronic kidney disease, or unspecified chronic kidney disease; N17.9 Acute kidney failure, unspecified; I42.8 Other cardiomyopathies; D63.1 Anemia in chronic kidney disease; I95.9 Hypotension, unspecified; G25.81 Restless legs syndrome; I48.91 Unspecified atrial fibrillation; I25.10 Atherosclerotic heart disease of native coronary artery without angina pectoris; J44.9 Chronic obstructive pulmonary disease, unspecified; D50.9 Iron deficiency anemia, unspecified; E83.39 Other disorders of phosphorus metabolism; E03.9 Hypothyroidism, unspecified; E78.5 Hyperlipidemia, unspecified; I73.9 Peripheral vascular disease, unspecified; Z79.01 Long term (current) use of anticoagulants; Z79.899 Other long term (current) drug therapy; I25.2 Old myocardial infarction; Z95.810 Presence of automatic (implantable) cardiac defibrillator; Z87.891 Personal history of nicotine dependence; Z99.2 Dependence on renal dialysis
CPT/HCPCS: 00532; 36415; 71020; 77001; 80048; 80053; 80061; 81001; 82272; 82570; 83735; 83880; 83970; 84100; 84156; 84443; 85025; 85027; 85610; 85730; 86317; 86704; 87340; 87522; 93005; 93010; C1713; C1752; C1769; G8978-GP; G8979-GP; J0690; J1644; J1756; J1940; J2250; J2704; J3490; Q4081; Q9967